=== PATIENT | male | born 1960 | race Caucasian/White ===

== ENCOUNTER 2018-08-28 11:13 | Outpatient (CLI) | payer MEDICARE, MEDICAID, SELFPAY ==
--- NOTE | 2018-08-28 09:17 | DI.RAD_ITS ---
SYMPTOM/DIAGNOSIS: COUGH, R05 PA AND LATERAL CHEST: 08/28/18 The heart is normal in size. The lungs are clear. The mediastinal structures and pleura appear intact. CONCLUSION: Normal chest.
== END 2018-08-28 11:33 ==
PROVIDERS: PCP Family Medicine; Visit Provider Nurse Practitioner
DX: R05 Cough (principal)
CPT/HCPCS: 71046

== ENCOUNTER 2020-12-21 07:44 | Emergency (ER) | payer MEDICARE, MEDICAID, SELFPAY ==
[2020-12-21 07:54] VITALS: BP 131/78; PULSE 75; TEMP 36.5; O2SAT 96
--- OUTSIDE RECORDS SUMMARY | 2020-12-21 07:56 | XMS_ITS ---
:1960 Author Care Team Providers Name Role Phone MANNY MONTE MD Animal Nursery Worker [phone] CINTIA GODOY MD General Surgeon [phone] Allergies Code Code Name Reaction Severity Status Onset System 435 RxNorm Albuterol Tachycardia ? Active ? Cat Dander ? ? Active ? 604253 RxNorm Ceftin ? ? Active ? 6921925 RxNorm Dog Dander ? ? Active ? 6425088 RxNorm Egg ? ? Active ? Flonase ? ? Active ? Grass Pollen ? ? Active ? 515465 RxNorm House Dust ? ? Active ? Influenza Virus ? ? Active ? Vaccine, Specific 0803985 RxNorm Lavender ? ? Active ? (Lavandula Angustifolia) 287681 RxNorm Levaquin ? ? Active ? 6470 RxNorm Lorazepam Itching Mild Active ? 91486 RxNorm Montelukast ? ? Active ? 7646 RxNorm Omeprazole ? ? Active ? Penicillins ? ? Active ? 8640 RxNorm Prednisone ? ? Active ? Ragweed Pollen ? ? Active ? Sulfa ? ? Active ? (Sulfonamide Antibiotics) 62049 RxNorm Tamsulosin ? ? Active ? 969020 RxNorm Singulair ? ? Deactivated ? Medications Name Status Start Date Stop Date ? ? albuterol sulfate HFA 90 mcg/actuation Completed ? 04/17/2020 aerosol inhaler Beaver Saline nasal gel Active ? Not availab le as directed azelastine 205.5 mcg (0.15 %) nasal spray Completed ? 07/10/2020 [place] 1 spray twice a day by intranasal route for 30 days. azithromycin 250 mg tablet Completed ? 04/17 Ceftin Active ? Not available cetirizine 10 mg tablet Active ? Not avai lable Take 1 tablet every day by oral route for 30 days. ciprofloxacin 500 mg tablet Completed ? 03/29 Claritin 10 mg tablet Completed ? 04/17/2020 Take 1 tablet every day by oral route. doxycycline monohydrate 100 mg capsule Completed ? 08/02/2020 Take 1 capsule twice a day by oral route for 7 days. flunisolide 25 mcg (0.025 %) nasal spray Completed ? 07/10/2020 [place] 2 sprays twice a day by intranasal route for 30 days. fluticasone propionate 50 mcg/actuation Completed ? 05/10/2020 nasal spray,suspension guaifenesin Active ? Not available hydroxyzine HCl 25 mg tablet Active ? Not available Take 1 tablet 3 times a day by oral route as needed for 10 days . for anxiety or itching ibuprofen 800 mg tablet Active ? Not avai lable Take 1 tablet 3 times a day by oral route for 30 days. lorazepam 0.5 mg tablet Completed ? 08/31/19 21 1 - 2 tabs PO TID PRN anxiety or insomnia mometasone 50 mcg/actuation nasal spray Unknown ? Not available 2 sprays each nostril daily montelukast 10 mg tablet Completed ? 020 prednisone 20 mg tablet Completed ? 05/01/20 20 prednisone 5 mg tablet Completed ? 0 Take 1 tablet every day by oral route for 5 days. Xopenex HFA 45 mcg/actuation aerosol inhaler Completed ? 08/31/2020 2 puffs q4-6h PRN cough or SOB Notes: Cranactin OTC, 1-2 po archie ly, cranberry based Problems Name Status Onset Date Source ? Disorder of Bladder Active 04/17/2020 ? 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 Allergic Rhinitis Active 05/05/2020 ? Solitary Nodule of Lung Unknown 06/01/2020 ? Hamstring Injury Unknown 06/01/2020 ? Erectile Dysfunction Active 06/02/2020 ? Sinus Bradycardia Unknown 06/02/2020 ? Deviated Nasal Septum Active 06/02/2020 ? Dental Abscess Unknown 06/02/2020 ? Urethral Stricture Unknown 06/02/2020 ? Blood in Urine Unknown 06/02/2020 ? Vertigo Unknown 06/02/2020 ? Dizziness Unknown 06/02/2020 ? Chronic Hoarseness Active 06/02/2020 ? Retention of Urine Unknown 06/02/2020 ? Inguinal Pain Unknown 06/02/2020 ? Fracture of Distal End of Radius Unknown 06/02/2020 ? Dog Bite Unknown 06/02/2020 ? Pain of Left Hip Joint Unknown 06/02/2020 ? Weakness of Right Leg Unknown 06/02/2020 ? Cyst Unknown 06/02/2020 ? Generalized Rash Unknown 06/02/2020 ? Chronic Sphenoidal Sinusitis Active 09/14/2020 ? Procedures Date Name Performed by ? 07/10/2020 EGD/Endoscopy Information not avai lable ? Urethroplasty for Stricture Information not available Notes: 2013 ? Cystoscopy Information not avai lable 04/17/2020 US, Head + Neck, Soft Tissue [facility] (Internal) [address] [place] [address] (Work Place) 08/28/2020 XR, Chest, 2 View [facility] (Internal) [address] [place] [address] (Work Place) 05/30/2020 XR, Esophagram [facility] (Internal) [address] [place] [address] (Work Place) Notes: hospitalizations: child & in 30s for GI issues Results Lab Results Date Name Specimen Result Interpretation Description Value Range Status Address ? 09/10/2020 EKG Done by ? No observation ? ? ? [place] ED recorded. [facility] (Internal) : [address] 09/10/2020 SARS CoV 2 SWAB ? Covid-19 [facility] negative negat colten Final [place] RNA Result [facility] (COVID-19)[facility] Lab QL, (Internal) : managed care nurse-PCR, [address] Jerry Kinney Specimen ? ? SWAB ? Performing Lab ana ? Final N orth [address] [facility] lab (Internal) : [address] 09/09/2020 CBC W/ Auto BLD ? Wbc 9.7 5.0-10.0 Final [place] Diff 10*3/uL 10*3/uL [facility] (Internal) : [address] ? ? BLD ? Rbc 5.14 4.60-6.0 Final [place] 10*6/uL 0 [facility] 10*6/uL [facility] Lab (Internal) : [address] ? ? BLD ? Hgb 16.1 14.0-18. Final [place] g/dL 0 g/dL [facility] (Internal) : [address] ? ? BLD ? Hct 46.7 % 41.0-51. Final [facility] 0 % [facility] : [address] ? ? BLD ? Mcv 90.9 fL 80.0-96. Final [facility] 0 fL [facility] (Internal[facility] : [address] [place] ? ? BLD ? Mch 31.3 pg 26.0-32. Final [facility] 0 pg [facility] (Internal) : [address] [place] ? ? BLD ? Mchc 34.5 31.0-35. Final [facility] g/dL 0 g/dL [facility] ([facility] : [address] [place] ? ? BLD ? Rdw 12.3 % 11.5-14. Final [facility] 5 % [facility] (Internal[facility] : [address] [place] ? ? BLD ? Plt 299 130-450 Final [facility] 10*3/uL 10*3/uL [facility] (Internal[facility] : [address] [place] ? ? BLD ? Anc 7.75 ? Final [facility] 10*3/uL [facility] (Internal) : [address] ? ? BLD High Nlr 6.25 0.00-3.2 Final [facility] 0 [facility] ([facility] : [address] ? ? BLD High Neutro 79.7 % 40.0-75. Final [facility] 0 % [facility] ([facility] : [address] [place] ? ? BLD Low Lymph 12.7 % 20.0-50. Final [facility] 0 % [facility] ([facility] : [address] [place] ? ? BLD ? Hays 6.5 % 2.0-10.0 Final [facility] (Internal[facility] : [address] [place] ? ? BLD Low Eos 0.3 % 1.0-6.0 Final [facility] (Internal[facility] : [address] [place] ? ? BLD ? Baso 0.6 % 0.0-1.0 Final [facility] % [facility] (Internal) : [address] [place] ? ? BLD ? Ig 0.2 % 0.0-0.9 Final [facility] ([facility] : [address] 09/09/2020 BMP, Serum S High g/r 107 74-106 Final No rth or Plasma mg/dL mg/dL [facility] ([facility] : [address] t ? ? S ? Bun 16 mg/dL 9-20 Final [facility] mg/dL [facility] ([facility] : [address] t ? ? S Low Crea 0.60 0.66-1.2 Final [facility] mg/dL 5 mg/dL [facility] ([facility] : [address] t ? ? S ? Ca 9.1 8.4-10.2 Final [facility] mg/dL mg/dL [facility] ([facility] : [address] t ? ? S ? Na 142 137-145 Final [facility] mmol/L mmol/L [facility] ([facility] : [address] t ? ? S ? K 4.0 3.5-5.1 Final [facility] mmol/L mmol/L [facility] ([facility]) : [address] t ? ? S ? Cl 105 98-107 Final [facility] mmol/L mmol/L [facility] ([facility]) : [address] t ? ? S ? Tco2 25.0 22.0-30. Final [facility] mmol/L 0 mmol/L [facility] ([facility] : [address] 09/09/2020 Troponin I, S ? Trop <0.06 0.00-0.0 Final [place] Serum or NG/mL 6 NG/mL [facility] L [facility] (Internal) : [address] 08/24/2020 Tick-borne S ? Ehrlichia <1:64 <1:64 Final [place] Disease Chaffeensis titer titer Coun try Panel (Hme) Ab, IgG Hos pital Lab (Internal) : [address] t ? ? S ? Anaplasma <1:64 <1:64 Final [place] Phagocytophilum titer titer C ountry Ab, IgG,S Hospita l Lab (Internal) : [address] t ? ? S ? Babesia Microti <1:64 <1:64 Final [place] IgG Ab, S titer titer [facility] ([facility] : [address] ? ? S ? Lyme Disease negative negative Final [place] Serology, S Count ry Hospital L ab (Internal) : [address] 08/24/2020 Borrelia S ? Lyme Antibody negative negative Final [place] Burgdorferi Count ry Ab, Qual Hospital Lab Immunoassay (Inte rnal): , Serum [address] 08/24/2020 Tb (M ? quantiferon-TB negative negative Final [place] Tuberculosi Gold plus Result Country s), Hospital L ab Ifn-gamma (Salesperson [employer] al): Cathy, [address] t ? ? ? TB1 Ag minus 0.00 ? Final Nor th Nil Result IU/mL Countr y Hospital L ab (Internal) : [address] ? ? ? TB2 Ag minus 0.00 ? Final Nor th Nil Result IU/mL Count[facility] Hospital L [facility] (Internal) : [address] ? ? ? Mitogen minus >10.00 ? Final No rth Nil Result IU/mL Countr [facility] Hospital L [facility] (Internal) : [address] ? ? ? Nil Result 0.02 ? Final [place] IU/mL [facility] (Internal) : [address] t 07/11/2020 Culture, THRT ? Final microbio ? Final No rth Aerobic, logy [facility] Throat results Hospital Lab (Internal) : [address] Le[address]da mejia 06/01/2020 HbA1C BLD ? Ha1C 5.4 % 4.0-6.0 Final [place] (Hemoglobin % Count ry a1C), Blood Hospi dorie Lab (Internal) : [address] Ley[address] t 06/01/2020 PSA, Serum S ? PSA Scrn 1.5 0.0-4.0 Final [place] or Plasma NG/mL NG/mL [facility] (Internal) : [address] Ley[address] t 06/01/2020 Thyroid S ? Tsh 2.33 0.47-4.6 Final Nor th [place], u[IU]/mL 8 Countr y Serum u[IU]/mL Hospital Lab (Internal) : [address] t 06/01/2020 Lipid S ? Chol 133 50-200 Final [place] Panel, mg/dL mg/dL [facility] Serum Hospital L ab (Internal) : [address] ? ? S ? Trig 76 mg/dL 10-150 Final [place] mg/dL [facility] (Internal) : [address] ? ? S High Hdl 104 40-60 Final [place] mg/dL mg/dL [facility] (Internal) : [address] t ? ? S ? Ldl 14 mg/dL 0-130 Final [place] mg/dL [facility] (Internal) : [address] 05/23/2020 Borrelia S ? Lyme Antibody (added) negative Correcte [place] Burgdorferi negative d Cou ntry Ab, [facility] Lab Immunoassay (Inte rnal): , Serum [address] 04/27/2020 SARS CoV 2 SWAB ? Covid-19 Result negative nega tive Final [place] RNA Country (COVID-19), Hospi dorie Lab QL, (Internal) : managed care nurse-PCR, [address] , [place] Specimen ? ? SWAB ? Performing Lab the ? Final N orth broad [facility] Lab e (Internal) : [address] 04/20/2020 CBC W/ Auto BLD ? Wbc 7.7 5.0-10.0 Final [place] Diff 10*3/uL 10*3/uL [facility] (Internal) : [address] ? ? BLD ? Rbc 5.20 4.60-6.0 Final [place] 10*6/uL 0 Country 10*6/uL Hospital Lab (Internal) : [address] ? ? BLD ? Hgb 16.3 14.0-18. Final [facility] g/dL 0 g/dL [facility] (Internal) : [address] t ? ? BLD ? Hct 47.4 % 41.0-51. Final [place] 0 % [facility] (Internal) : [address] t ? ? BLD ? Mcv 91.2 fL 80.0-96. Final [facility] 0 fL [facility] (Internal) : [address] t ? ? BLD ? Mch 31.3 pg 26.0-32. Final [facility] 0 pg [facility] (Internal) : [address] [place] ? ? BLD ? Mchc 34.4 31.0-35. Final [facility] g/dL 0 g/dL [facility] (Internal) : [address] [place] ? ? BLD ? Rdw 12.8 % 11.5-14. Final [facility] 5 % [facility] (Internal) : [address] [place] ? ? BLD ? Plt 274 130-450 Final [facility] 10*3/uL 10*3/uL [facility] (Internal) : [address] [place] ? ? BLD ? Anc 5.04 ? Final [facility] 10*3/uL [facility] (Internal) : [address] [place] ? ? BLD ? Nlr 2.82 0.00-3.2 Final [facility] 0 [facility] (Internal) : [address], [place] ? ? BLD ? Neutro 65.7 % 40.0-75. Final [facility] 0 % [facility] (Internal) : [address] [place] ? ? BLD ? Lymph 23.4 % 20.0-50. Final [facility] 0 % [facility] (Internal[facility] : [address] [place] ? ? BLD ? Hays 7.2 % 2.0-10.0 Final [facility] (Internal) : [address] [place] ? ? BLD ? Eos 2.5 % 1.0-6.0 Final [facility] ([facility] : [address] [place] ? ? BLD ? Baso 0.9 % 0.0-1.0 Final [facility] (Internal[facility] : [address] [place] ? ? BLD ? Ig 0.3 % 0.0-0.9 Final [facility] % [facility] ([facility]) : [address] 04/20/2020 CMP, Serum S ? g/r 92 mg/dL 74-106 Final [facility] or Plasma mg/dL [facility] ([facility]) : [address] ? ? S ? Bun 14 mg/dL 9-20 Final [facility] mg/dL [facility] ([facility] : [address] t ? ? S Low Crea 0.60 0.66-1.2 Final [facility] mg/dL 5 mg/dL [facility] ([facility]) : [address] t ? ? S ? Ca 9.1 8.4-10.2 Final [facility] mg/dL mg/dL [facility] ([facility]) : [address] t ? ? S ? Na 139 137-145 Final [facility] mmol/L mmol/L [facility] (Internal) : [address] t ? ? S ? K 4.6 3.5-5.1 Final [facility] mmol/L mmol/L [facility] ([facility] : [address] t ? ? S ? Cl 104 98-107 Final [facility] mmol/L mmol/L [facility] ([facility]) : [address] t ? ? S ? Tco2 28.0 22.0-30. Final [place] mmol/L 0 mmol/L [facility] ([facility]) : [address] t ? ? S ? Tp 6.8 g/dL 6.3-8.2 Final [facility] g/dL [facility] ([facility] : [address] t ? ? S ? Alb 4.3 g/dL 3.5-5.0 Final [facility] g/dL [facility] ([facility] : [address] t ? ? S High Tbil 1.7 0.2-1.3 Final [facility] mg/dL mg/dL [facility] ([facility] : [address] t ? ? S ? Alp 53 U/L 50-136 Final [facility] U/L [facility] ([facility]) : [address] t ? ? S Low Alt (Sgpt) 17 U/L 21-72 Final [facility] U/L [facility] ([facility] : [address] t ? ? S ? Ast (Sgot) 34 U/L 17-59 Final [facility] U/L [facility] ([facility]) : [address] t 04/20/2020 CRP, High S ? Rcrp <0.10 0.10-0.3 Final N orth Sensitivity mg/dL 0 mg/dL Coun try , Serum or Hospit al Lab Plasma (Internal) : [address] 04/20/2020 EKG Done by ? No observation ? ? ? [facility] ED recorded. [facility] ab (Internal) : [address] ? Venipunctur ? Location Right ? ? P_ nc Primary e Antecubi Care dorie [place]: [address], [place] ? ? ? Needle 21g ? ? P_nc Prim maren Vacutain Care er [place]: [address], [place] ? ? ? Number of 1 ? ? P_nc P rimary Attempts Care [place]: [address], [place] ? ? ? Successful Yes ? ? P_nc Primary Care [place]: [address], [place] ? ? ? Dressing Pressure ? ? P_nc Primary Band-aid Care Applied [place]: [address], [place] ? ? ? Initials hj ? ? P_nc Pr imary Care [place]: [address], [place] ? Rapid Strep ? Strep negative ? ? P_n c Primary Group a, Care Throat [place]: [address], [place] ? Venipunctur ? Location Right ? ? P_ nc Primary e Antecubi Care dorie [place]: [address], [place] ? ? ? Needle 21g ? ? P_nc Prim maren Vacutain Care er [place]: [address], [place] ? ? ? Number of 1 ? ? P_nc P rimary Attempts Care [place]: [address], [place] ? ? ? Successful Yes ? ? P_nc Primary Care [place]: [address], [place] ? ? ? Dressing Pressure ? ? P_nc Primary Band-aid Care Applied [place]: [address], [place] ? ? ? Initials nt ? ? P_nc Pr imary Care [place]: [address], [place] Past Encounters 09/21/2020 Varicose Veins of Lower Extremity; Chron ic Sphenoidal Sinusitis; Muscle Weakness Lashaun Parker Adriane [employer]ADE MAKER: [address], [place] [address], Ph. 09/11/2020 Productive Cough Lashaun Forrest [employer]: [address], [place] [address], Ph. 09/07/2020 Chronic Hoarseness; Normal Grief Reactio n Lashaun Espinozarahel Forrest [employer]: [address], [place] [address], Ph. 08/31/2020 Chronic Hoarseness Lashaun Keithrahel Forrest [employer]ADE MAKER: [address], [place] [address], Ph. 08/24/2020 Chronic Hoarseness; Dyspnea; Dry Skin GRACY ArechigaP: [address], [place] [address], Ph. 08/16/2020 Chronic Hoarseness Lashaun Marinetterahel Forrest [employer]ADE MAKER: [address], [place] [address], Ph. 08/02/2020 Allergic Rhinitis; Active or Passive Imm unization Lashaunsea EspinozaGRACY SchumacherP: [address], [place] [address], Ph. 07/19/2020 Tick Bite; Dysequilibrium Syndrome; Prur itus of Skin; Acute Ethmoidal Sinusitis GRACY ArechigaP: [address], [place] [address], Ph. 07/12/2020 Abnormal Sputum GRACY ArechigaP: [address], [place] [address], Ph. 07/10/2020 Chronic Hoarseness; Screening for Malign ant Neoplasm of Colon GRACY ArechigaP: [address], [place] [address], Ph. 06/26/2020 Blnaca Foster, [employer]BI[employer] HOME MECH[employer]IC: [address] [facility], [address], [place] [address], Ph. 06/01/2020 Allergic Rhinitis; Reactive Airway Disea se; Screening for Cardiovascular System Disease; Screening for Malignant Neoplasm of Prostate GRACY ArechigaP: [address] [place] [address], Ph. 05/25/2020 Blanca Foster, MOBILE HOME MECHANIC: [address] [facility] [address], [place] [address], Ph. 05/04/2020 Manny Monte MD: [address] [place] [address], Ph. 04/27/2020 Manny Monte MD: [address] [place] [address], Ph. 04/26/2020 Reactive Airway Disease; Allergic Rhinit is; Solitary Nodule of Lung Lashaun Forrest, SHADE MAKER: [address] [place] [address], Ph. 04/17/2020 Allergic Rhinitis; Mass of Neck; Adminis tration of Influenza Vaccine GRACY ArechigaP: [address] [place] [address], Ph. Social History Tobacco Smoking Status Former Smoker Notes: quit Vaccine List Vaccine Type Tdap 01/20/2020 Plan of Care Reminders Provider Appointments None ? ? recorded. Lab None ? ? recorded. Referral None ? ? recorded. Procedures None ? ? recorded. Surgeries None ? ? recorded. Imaging None ? ? recorded. Vitals 09/21/2020 03:40PM Acute 20 Height Weight BMI Blood Pressure 167.64 cm 62.17 kg 22.1 kg/m2 108/72 mm[Hg] 09/11/2020 11:00AM Follow Up 20 Height Weight BMI Blood Pressure 167.64 cm 64.15 kg 22.8 kg/m2 138/88 mm[Hg] 09/07/2020 03:40PM Acute 40 Height Weight BMI Blood Pressure 167.64 cm 65.77 kg 23.4 kg/m2 132/80 mm[Hg] 08/31/2020 03:20PM Follow Up 40 Height Weight BMI Blood Pressure 167.64 cm 66.79 kg 23.8 kg/m2 118/66 mm[Hg] 08/24/2020 11:00AM Acute 40 Height Weight BMI Blood Pressure 167.64 cm 68.04 kg 24.2 kg/m2 116/70 mm[Hg] 08/02/2020 03:40PM Follow Up 40 Height Weight BMI Blood Pressure 167.64 cm 67.13 kg 23.9 kg/m2 110/66 mm[Hg] 07/19/2020 03:40PM Follow Up 20 Height Weight BMI Blood Pressure 167.64 cm 66.68 kg 23.7 kg/m2 122/88 mm[Hg] 07/12/2020 03:20PM Follow Up 40 Height Weight BMI Blood Pressure 167.64 cm 64.86 kg 23.1 kg/m2 134/84 mm[Hg] 07/10/2020 03:20PM Acute 40 Height Weight BMI Blood Pressure 167.64 cm 63.5 kg 22.6 kg/m2 106/80 mm[Hg] 06/01/2020 01:20PM Follow Up 40 Height Weight BMI Blood Pressure 167.64 cm 67.7 kg 24.1 kg/m2 118/62 mm[Hg] 04/26/2020 10:40AM Follow Up 20 Height Weight BMI Blood Pressure 167.64 cm 63.5 kg 22.6 kg/m2 116/76 mm[Hg] 04/17/2020 11:00AM Acute 40 Height Weight BMI Blood Pressure 167.64 cm 63.05 kg 22.4 kg/m2 124/78 mm[Hg]
[2020-12-21 08:11] VITALS: RESP 18
--- NOTE | 2020-12-21 08:30 | RT.EKG_ITS ---
APPROVED REPORT Exam: Resting ECG Reason for Exam: chest tightness Patient Location: E HR:55 bpm ECG Measurements Heart Rate 55 AXIS MD 166 P 46 QRSd 91 QRS 66 QT 408 T 34 QTc 392 Conclusion Sinus bradycardia...rate< 60. No STEMI. I have reviewed and interpreted ECG and agree with software generated interpretation.
--- NOTE | 2020-12-21 08:32 | ED.GENADUL_ITS ---
Discharge Plan Disposition Patient Disposition: HOME Condition: Stable Discharge Details Clinical Impression: Throat pain in adult, Dyspnea, Multiple complaints Primary Care Provider: Daniel Bryant ED Provider: Kate Espino Home Meds and New Rx's Prescriptions: No Action cetirizine 10 mg tablet 10 mg PO BID RF: 0 doxycycline monohydrate 100 mg capsule 100 mg PO BID RF: 0 levalbuterol tartrate 45 mcg/actuation HFA aerosol inhaler 2 inh INHALATION BID PRNRF: 0 Discharge Instructions Instructions: Pharyngitis (ED), Dyspnea (ED) Additional Instructions: Please only take 1 antihistamine daily. Increase oral fluids. Follow up with primary care provider in 3-5 days. Return to ED sooner if any worsening or concerns. Keep your scheduled appointment for surgery. Discussed with your primary care provider regarding the barium swallow that you requested. Today you had lab work done, EKG, chest x-ray which all are within normal limits. Referrals: Andreina Root [ [facility] STAFF PHYSICIAN] - 1 week Medical Decision Making 60 year old male presents to the ED who reports multiple complaints, throat discomfort, left sided headache, chest tightness, and problems breathing for a number of weeks. Denies any fever, chills, current abdominal pain, throat gurgling, with yellowish green phlegm. 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 He denies any nausea vomiting. He does report loose stools no diarrhea. Patient appears anxious and has multiple visits and multiple telephone calls to [facility] team. It appears that he presents with multiple complaints. He does report he has some scar tissue in his bladder and he does self cath. He is speaking in full sentences does not appear in any respiratory distress, he is nontachycardic O2 sat 96% on room air, within normal limits. 04 22: Patient was swabbed for strep throat, he is now requesting a barium swallow x-ray test. At this time I see no indication for that he is not having any problems swallowing, speaking in full sentences handling his secretions well. Work-up ordered including serial troponins, EKG and chest x-ray. Patient had a CT chest without contrast at [facility] December 13. It does appear that these are chronic complaints. EXAM:? XR CHEST 2V PA ? LATERAL CLINICAL HISTORY: ? Dyspnea. ? TECHNIQUE:? 2D digital imaging was performed. COMPARISON:? CR XR CHEST 2V PA ? LATERAL from 08/28/2018 FINDINGS: Heart size is normal.? The mediastinum is not widened. Lungs are clear.? No infiltrates nor pleural effusions. IMPRESSION: No acute pulmonary findings.No significant change from 08/28/2018. CBC shows no evidence of infection or leukocytosis, MCHC 36.4, absolute lymphocytes 1.11, CMP is largely within normal limits, BUN is 20 creatinine 0.8 GFR greater than 60, calcium is 8.4 which is marginally low similar to 2017, magnesium 2.2, total bilirubin 2.5, AST ALT alk phos all within normal limits initial troponin less than 0.05. Patient is still requesting a barium swallow. Discussion at length with patient regarding lab results, x-ray result and no need for barium swallow at this time due to speaking in full sentences, handling secretions well no trouble swallowing. I was able to personally witness patient drinking water in the room without difficulty. I did offer dexamethasone which patient agreed to take. Patient discharged with instructions to follow-up with [facility] PCP as previously scheduled. Discussed return instructions, verbalized understanding. Patient was ambulatory without difficulty prior to discharge hemodynamically stable. I also did instruct him to decrease on his antihistamines as this may be causing the catecholamine response and making his throat dry. Patient denies any current chest tightness chest pain. HPI General Mode of arrival: ambulatory . Date/Time Provider Initiated Documentation: 12/21/20 08:11 . Limitations to Documentation: no limitations . Information obtained by: patient, RN notes reviewed and old records reviewed . HPI Narrative: 60 year old male presents to the ED who reports throat discomfort, left sided headache, chest tightness, and problems breathing for a number of weeks. Denies any fever, chills, current abdominal pain, throat gurgling, with yellowish green phlegm. 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 He denies any nausea vomiting. He does report loose stools no diarrhea. Patient appears anxious and has multiple visits and multiple telephone calls to [facility] team. It appears that he presents with multiple complaints. He does report he has some scar tissue in his bladder and he does self cath. He is speaking in full sentences does not appear in any respiratory distress, he is nontachycardic O2 sat 96% on room air, within normal limits. Related Data Home Medications Medication Instructions Recorded Confirmed cetirizine 10 mg PO BID 12/21/20 12/21/20 doxycycline monohydrate 100 mg PO BID 12/21/20 12/21/20 levalbuterol tartrate 2 inh INHALATION BID PRN 12/21/20 12/21/20 Allergies Allergy/AdvReac Type Severity Reaction Status Date / Time sulfamethoxazole Allergy Skin Rash Unverified 08/04/16 16:33 [From Bactrim] trimethoprim [From Bactrim] Allergy Skin Rash Unverified 08/04/16 16:33 Sulfa (Sulfonamide AdvReac Unverified 08/04/16 16:32 Antibiotics) General Stated Complaint: GenMedical ARIANA: 3 Review of Systems Constitutional Constitutional: Reports as per HPI, Reports headache(s) and Denies snoring ENT Ears, Nose, Mouth, and Throat: Reports dry mouth, Reports otalgia, Reports headache(s), Reports odynophagia, Reports post nasal drip, Reports sinus pain and Reports sinus pressure Cardiovascular Cardiovascular: Reports system reviewed and no additional complaints, except as documented, Denies acrocyanosis, Reports chest pain (Chest tightness), Denies diaphoresis, Denies syncope, Denies rapid heart rate, Denies edema, Denies leg edema, Denies lightheadedness and Reports paroxysmal nocturnal dyspnea (Anxiety) Respiratory Respiratory: Reports as per HPI, Reports change in phlegm color, Denies cough, Denies hemoptysis, Reports excessive phlegm production, Reports dyspnea (Dyspnea), Denies snoring, Denies stridor and Denies wheezing Gastrointestinal Gastrointestinal: Denies abdominal pain, Denies bloating, Denies hematochezia, Reports loose stools and Reports odynophagia Genitourinary Genitourinary: Denies difficulty urinating, Denies dysuria and Reports other (Self caths) Musculoskeletal Musculoskeletal: Denies abnormal gait Neurologic Neurologic: Denies abnormal movements, Denies abnormal speech, Denies abnormal gait, Denies syncope, Reports headache(s), Denies lack of coordination and Denies localized weakness Psychiatric Psychiatric: Reports anxiety Allergic/Immunologic Allergic/Immunologic: Denies wheezing PFSH Social History Smoking/Tobacco Use Status: Never Smoking risk assessment performed?: Yes Alcohol Intake: current Alcohol Intake frequency: a few times a month Alcohol type: beer Drug use: Socially Substance use type: marijuana Do you feel safe at home: Yes Do you feel safe in your relationship?: Yes Exam Narrative Exam Narrative: Constitutional: Alert and oriented x3. Appears stated age. Normal body habitus. Head: Normocephalic, no trauma. Eyes: Pupils PERRLA, Red reflex noted, EOM's intact. Eyelids symmetrical without lesions, discharge, or swelling. ENT: Bilateral TM's WNL, External ear normal to inspection, no mastoid TTP, swelling, or erythema, Nasal turbinates erythemic and boggy, no nasal discharge. Normal dentition, Posterior pharynx erythemic, no exudate. Chest: RRR, Normal S1, S2, distal pulses intact. Resp: Lungs clear to auscultation bilaterally, no wheezes, rales, or rhonchi. Slightly diminished all booth. No stridor auscultated. Positive anterior cervical tenderness with palpation. No palpable lymph nodes. Musculoskeletal: Normal gait, 5/5 strength to all four extremities. Skin: No suspicious rashes or lesions. Capillary refill less than 2 sec. Neurologic: Cranial nerves II-XII intact. Alert and oriented x 3. DTR's intact. Hematologic/Lymphatic: No ecchymosis, no lymphadenopathy. Course Vital Signs Vital signs: Vital Signs Temperature 36.5 C 12/21/20 07:54 Pulse 75 12/21/20 07:54 Blood Pressure 131/78 12/21/20 07:54 Pulse Oximetry 96 12/21/20 07:54 Temperature 36.5 C 12/21/20 07:54 Temperature Source Temporal Artery Scan 12/21/20 07:54 Pulse 75 12/21/20 07:54 Respiratory Rate 18 12/21/20 08:11 Respiratory Effort Non-Labored 12/21/20 08:11 Respiratory Depth Normal 12/21/20 08:11 Respiratory Pattern Normal 12/21/20 08:11 Blood Pressure 131/78 12/21/20 07:54 Blood Pressure Position Sitting 12/21/20 07:54 Pulse Oximetry 96 12/21/20 07:54 Oxygen Delivery Method Room Air 12/21/20 07:54 Oxygen Flow Rate 0 12/21/20 07:54 Pain Level 7 12/21/20 07:54
[2020-12-21 09:14] LABS: Abs Immature Grans 0.02 10^3/uL (0.0-0.06); Absolute Basophil Count 0.06 10^3/uL (0.0-0.2); Absolute Eosinophil Count 0.07 10^3/uL (0.0-0.7); Absolute Lymphocyte Count 1.11 10^3/uL (1.2-3.4); Absolute Monocyte Count 0.46 10^3/uL (0.1-0.8); Absolute Neutrophil Count 4.53 10^3/uL (1.2-6.7); Eosinophils % 1.1; HCT 45.1 % (40.0-50.0); HGB 16.4 g/dL (13.5-17.5); Immature Grans % 0.3; Lymphocytes % 17.8; MCH 32.1 pg (27.0-33.0); MCHC 36.4 % (32.0-36.0); MCV 88.3 fL (80-95); MPV 9.1 fL (8.0-11.0); Monocytes % 7.4; Neutrophils % 72.4; Nucleated RBC 0 %; Platelet Count 259 10^3/uL (130-400); RBC 5.11 10^6/uL (4.36-5.78); RDW 12.3 % (11.8-14.1); RDW-SD 40.1 fL; WBC 6.25 10^3/uL (4.4-10.8)
--- NOTE | 2020-12-21 09:15 | DI.RAD_ITS ---
Exam(s) XR CHEST 2V PA LATERAL EXAM: XR CHEST 2V PA LATERAL CLINICAL HISTORY: Dyspnea. TECHNIQUE: 2D digital imaging was performed. COMPARISON: CR XR CHEST 2V PA LATERAL from 08/28/2018 FINDINGS: Heart size is normal. The mediastinum is not widened. Lungs are clear. No infiltrates nor pleural effusions. IMPRESSION: No acute pulmonary findings.No significant change from 08/28/2018. DATA REPOSITORY: RADIATION DOSE DELIVERED:
[2020-12-21 09:43] LABS: ALT 29 U/L (16-63); AST 25 U/L (15-37); Alkaline Phosphatase 55 U/L (46-116); Anion Gap 8.8 mmol/L (3-11); BUN 20 mg/dL (7-18); Bilirubin, Total 2.5 mg/dL (0.2-1.0); CO2 26.2 mmol/L (21.0-32.0); CREATININE 0.8 mg/dL (0.70-1.30); Calcium 8.4 mg/dL (8.5-10.1); Chloride 107 mmol/L (98-107); Glucose 104 mg/dL (74-106); Magnesium 2.2 mg/dL (1.8-2.4); Potassium 3.7 mmol/L (3.5-5.1); Sodium 142 mmol/L (136-145); Total Protein 6.8 g/dL (6.4-8.2); Troponin I < 0.05 ng/mL (<0.06)
[2020-12-21 10:48] VITALS: BP 130/84; PULSE 66; TEMP 36.6; O2SAT 97
[2020-12-21] MEDS: Normal Saline Flush 10 ML SYR IVP (10:48)
[2020-12-21] MEDS: Dexamethasone 4 MG/ML VIAL PO (10:48)
== END 2020-12-21 11:04 | disposition home or self-care (01) ==
PROVIDERS: Emergency Provider Registered Nurse Emergency; PCP Family Medicine
DX: R06.00 Dyspnea, unspecified (principal); R07.0 Pain in throat; R51.9 Headache, unspecified
CPT/HCPCS: 36415; 80053; 87880; 93005; 99284; 71046; 83735; 84484; 85025; 87081; 93010; 99283; J1100

== ENCOUNTER 2021-02-16 04:49 | Outpatient (CLI) | payer MEDICARE, MEDICAID, SELFPAY ==
--- NOTE | 2021-02-16 09:25 | DI.RAD_ITS ---
Exam(s) RF BARIUM SWALLOW SINGLE EXAM: RF BARIUM SWALLOW SINGLE CLINICAL HISTORY: CHRONIC THROAT CLEARING,R68.89,DYSPHAGIA,R13.10,H/O SINUS SURGERY TECHNIQUE: 2D and realtime digital imaging was performed. CONTRAST MATERIAL: Thick and thin barium and barium tablet were administered. COMPARISON: RF XR BARIUM SWALLOW AC (D) from 06/12/2020 RF XR BARIUM SWALLOW AC (D) from 06/12/2020 FINDINGS: The boiler riveter view of the chest shows normal heart size and clear lung booth. The lateral boiler riveter view of the neck is unremarkable. Esophagus: The patient swallowed barium without difficulty. Noevidence for mucosal erosions. Nofold thickening. No mass is visible. Nostricture. No diverticulum. No significant pooling in the vallec uyen or piriform sinuses. No aspiration. Motility: There is a normal primary stripping wave. Mild tertiary contractions were noted in the dist al 3rd of the esophagus.. There is no hiatal hernia. Nogastroesophageal reflux was observed during the exam. IMPRESSION: Mild esophageal dysmotility. Fluoro time 63 seconds RADIATION DOSE DELIVERED: candi Jones=20.9 mGy
[2021-02-16] MEDS: Barium Sulfate 60% W/V 355 ML BTL 200 ML PO (10:03)
[2021-02-16] MEDS: Barium Sulfate 700 MG TAB PO (10:06)
== END 2021-02-16 05:09 ==
PROVIDERS: PCP Internal Medicine; Visit Provider Otolaryngology Otolaryngology/Facial Plastic Surgery
DX: K22.4 Dyskinesia of esophagus (principal); R68.89 Other general symptoms and signs; Z98.890 Other specified postprocedural states
CPT/HCPCS: 74220; J3490

== ENCOUNTER 2021-02-16 09:46 | Outpatient (REF) | payer MEDICARE, MEDICAID, SELFPAY | END 2021-02-16 09:47 | disposition home or self-care (01) | LOC: LBN 09:46 | PROVIDERS: PCP Internal Medicine; Visit Provider Urology | DX: R39.9 Unspecified symptoms and signs involving the genitourinary system (principal) | CPT/HCPCS: 87077; 87086; 87186 ==

== ENCOUNTER 2021-03-18 07:56 | Emergency (ER) | payer MEDICARE, MEDICAID, SELFPAY ==
[2021-03-18 08:04] VITALS: BP 117/73; PULSE 76; RESP 16; TEMP 36.5; O2SAT 96
--- NOTE | 2021-03-18 08:17 | W.ED.GENAD ---
Discharge Plan Disposition Patient Disposition: HOME Condition: Stable Discharge Details Clinical Impression: Throat pain in adult, Multiple complaints Primary Care Provider: Yolanda Meyer ED Provider: Anju Anne Home Meds and New Rx's Prescriptions: Continued multivitamin Tablet 1 tab PO DAILY RF: 0 coenzyme Q10 [Co Q-10] 200 mg Capsule 200 PO DAILY RF: 0 B.breve-L.acid-L.rham-S.thermo 3 billion cell Tablet,Chewable 2 tab PO DAILY RF: 0 Cranactin DAILY RF: 0 Graefruit Seed Extract PO DAILY RF: 0 Discharge Instructions Instructions: Pharyngitis (ED) Additional Instructions: Your exam today is very reassuring. You are negative for strep throat. Your lungs are clear. However, as you feel you have a low-grade fever at home, you may have a viral infection. You have been tested for COVID-19. Please quarantine at home until you have results. We will call you with the results of symptoms that have returned. Please encourage water intake. You may use Tylenol and/or ibuprofen as needed for discomfort or fevers. In regard to your concern regarding your director of medical staff services, your pulmonology phone number is listed below. You may call tomorrow to schedule follow-up appointment. A referral has also been sent. In regard to your allergy testing, I encourage you to call back your research professor that you had previously seen as they have all the results of your testing and discuss further management as necessary. Please continue to establish your local primary care and follow-up as soon as possible discuss your chronic ailments. Referrals: Yolanda Meyer [Primary Care Provider] - Medical Decision Making Patient is a 60-year-old male presenting today with multiple complaints. Primary at this time seems to be an increase in his throat discomfort as well at low-grade fever. He reports that he had temperature of 99.1 ?F today. He states that the last time he had this was the last time he had a cold and was quite concerned. Patient was seen here back in November at which time he was endorsing sore throat. He states that his symptoms are quite similar but has continued to worsen. 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 Patient is concerned that this is not adequately treated. He is also concerned that he was seen by an research professor and was noted to have multitude of allergies he is not received appropriate treatment as of yet. Patient then found to have been very frustrated regarding much of his follow-up. He is very concerned that he has been labeled hypochondriac. He would like to be able to transition more of his care to this area, particularly pulmonology. On exam, patient appears nontoxic. Vital signs are all stable. HEENT exam is without significant abnormality at this time. Patient is able to swallow well, handling secretions. I do not feel any abnormalities in the anterior aspect of his throat. His lungs are clear. Heart sounds normal. Reassured the patient. I see no emergent pathology today, much of his concerns are a chronic nature. After that he may be suffering from viral illness. His rapid strep testing was negative. Will send out Covid testing. Patient has not been vaccinated that was to be vaccinated against COVID-19. Patient also very concerned about a number of chronic issues all of which have asked follow-up with his primary care about. I did encourage him to call back the research professor found that he may have lost touch with them. We will also give number for local director of medical staff services. It sounds that he is familiar with Dr. Stark and had seen her historically in [place] and is like to transition his care again to her. Return precautions were discussed. He will quarantine until COVID-19 testing is back. Encourage close follow-up with primary care. He will call tomorrow to schedule appointment. All of his questions and concerns were addressed and he is agreement with this plan. HPI General Mode of arrival: ambulatory. Date/Time Provider Initiated Documentation: 03/18/21 08:12. Limitations to Documentation: no limitations. Information obtained by: patient, RN notes reviewed and old records reviewed. History of Present Illness 60 year old M presents to the emergency department with the chief complaint of sore throat, fever, described as moderate, with intensity rated at 7. Quality is described as burning, and is localized to the mouth (sore throat). Patient reports no radiation. Patient started experiencing this month(s) and it has been constant. No relieving factors improve symptom(s), No exacerbating factors reported . Patient notes cough, fever/chills (T max 99.1) and shortness of breath (is not endorsing SOB curently, has had this as a chronic issue); denies chest pain, loss of appetite, nausea/vomiting and rash. Patient did receive the following treatments prior to arrival, none Related Data Home Medications Medication Instructions Recorded Confirmed B.breve-L.acid-L.rham-S.thermo 2 tab PO DAILY 03/18/21 03/18/21 Cranactin DAILY 03/18/21 Graefruit Seed Extract PO DAILY 03/18/21 coenzyme Q10 [Co Q-10] 200 PO DAILY 03/18/21 multivitamin 1 tab PO DAILY 03/18/21 03/18/21 Allergies Allergy/AdvReac Type Severity Reaction Status Date / Time fentanyl Allergy Unverified 03/18/21 08:10 sulfamethoxazole Allergy Skin Rash Verified 03/18/21 08:10 [From Bactrim] trimethoprim [From Bactrim] Allergy Skin Rash Verified 03/18/21 08:10 Sulfa (Sulfonamide AdvReac Verified 03/18/21 08:10 Antibiotics) General Stated Complaint: RespSymp ARIANA: 4 Review of Systems Constitutional Constitutional: Reports as per HPI, Denies chills, Reports fever(s) and Denies headache(s) Eyes Eyes: Reports as per HPI, Denies eye discharge and Denies irritation ENT Ears, Nose, Mouth, and Throat: Reports as per HPI and Denies headache(s) Cardiovascular Cardiovascular: Reports as per HPI, Denies chest pain and Reports dyspnea Respiratory Respiratory: Reports as per HPI and Reports dyspnea Gastrointestinal Gastrointestinal: Reports as per HPI, Denies abdominal pain, Denies change in bowel habits, Denies nausea and Denies vomiting Integumentary/Breasts Skin/Breast: Reports as per HPI and Denies rash Neurologic Neurologic: Reports as per HPI and Denies headache(s) [facility] Social History Smoking/Tobacco Use Status: Never Smoking risk assessment performed?: Yes Alcohol Intake: current Alcohol Intake frequency: a few times a month Alcohol type: beer Drug use: Socially Substance use type: marijuana Do you feel safe at home: Yes Do you feel safe in your relationship?: Yes Exam Const General: cooperative, healthy appearing, comfortable, no acute distress, well developed, well groomed and anxious Nutritional Appearance: average body habitus and well nourished Orientation: alert and awake [facility] Head: normal to inspection, normocephalic and atraumatic Ears: hearing grossly normal bilaterally, external ears normal and TM's normal bilaterally General nose exam: external nose normal and nares normal Face and sinus: normal facial exam, sinuses nontender and face symmetric Mouth: oral mucosae normal, lip normal, tongue normal, oropharynx normal and moist mucous membranes Teeth and gingiva: dentition normal Throat: posterior oropharynx normal, uvula midline and tonsils absent Eyes General: appearance normal, both eyes and all related structures Neck Neck: normal visual inspection, full ROM, no lymphadenopathy, no meningeal signs, trachea midline, supple and no anterior neck swelling Thyroid: thyroid normal Resp Effort & Inspection: normal respiratory effort, able to speak in complete sentences and no respiratory distress Auscultation: clear to auscultation bilaterally, no rales, no rhonchi and no wheezes Cardio Rate: regular rate Rhythm: regular rhythm Heart Sounds: S1 normal and S2 normal Skin General skin exam: no rashes or lesions noted Neuro General: patient alert and patient awake Cognition: normal cognition Speech: speech normal Gait: normal gait Psych Appearance: grossly normal and well kempt Mental Status: mental status grossly normal Speech and Movement: speech and movement normal Course Vital Signs Vital signs: Vital Signs Temperature 36.5 C 03/18/21 08:04 Pulse 76 03/18/21 08:04 Respiratory Rate 16 03/18/21 08:04 Blood Pressure 117/73 03/18/21 08:04 Pulse Oximetry 96 03/18/21 08:04 Temperature 36.5 C 03/18/21 08:04 Temperature Source Skin 03/18/21 08:04 Pulse 76 03/18/21 08:04 Respiratory Rate 16 03/18/21 08:04 Respiratory Effort Non-Labored 03/18/21 08:04 Blood Pressure 117/73 03/18/21 08:04 Blood Pressure Position Sitting 03/18/21 08:04 Pulse Oximetry 96 03/18/21 08:04 Oxygen Delivery Method Room Air 03/18/21 08:04 Oxygen Flow Rate 0 03/18/21 08:04 Pain Level 7 03/18/21 08:04
--- NOTE | 2021-03-18 08:39 | NUR.NOTE ---
Nursing Note: Referral faxed to [facility] Pulmonology for follow up. Lynda Murillo
[2021-03-19 11:48] LABS: COVID-19 RT-PCR UVMMC Result Negative (Negative)
--- NOTE | 2021-03-19 17:11 | NUR.NOTE ---
Nursing Note: patient contacted and notified of negative covid results.
== END 2021-03-18 08:50 | disposition home or self-care (01) ==
PROVIDERS: Emergency Provider Physician Assistant; PCP Internal Medicine
DX: R07.0 Pain in throat (principal); R50.9 Fever, unspecified; R05 Cough; R06.00 Dyspnea, unspecified; Z20.822 Contact with and (suspected) exposure to COVID-19; Z03.818 Encounter for observation for suspected exposure to other biological agents ruled out
CPT/HCPCS: 87880; 99282; U0003; U0005; 87081; 99283

== ENCOUNTER 2021-05-03 09:15 | Outpatient (CLI) | payer MEDICARE, MEDICAID, SELFPAY ==
--- NOTE | 2021-05-03 09:15 | RT.EKG_ITS ---
APPROVED REPORT Exam: Resting ECG Reason for Exam: Chest Pain Patient Location: O HR:52 bpm ECG Measurements Heart Rate 52 AXIS SD 165 P 64 QRSd 84 QRS 71 QT 397 T 38 QTc 368 Conclusion Sinus bradycardia...rate< 60 Normal Electrocardiogram
== END 2021-05-03 09:16 ==
LOC: DI.CM 09:16
PROVIDERS: PCP Family Medicine; Visit Provider Nurse Practitioner Family
DX: R07.9 Chest pain, unspecified (principal)
CPT/HCPCS: 93010

== ENCOUNTER 2021-05-03 10:26 | Emergency (ER) | payer MEDICARE, MEDICAID, SELFPAY ==
[2021-05-03] VITALS (9 sets, daily range): BP systolic 117–124; BP diastolic 66–76; PULSE 50–59; RESP 12–22; TEMP 36.7; O2SAT 95–98
--- NOTE | 2021-05-03 10:15 | RT.EKG_ITS ---
APPROVED REPORT Exam: Resting ECG Reason for Exam: chest pain Patient Location: E HR:51 bpm ECG Measurements Heart Rate 51 AXIS SC 173 P 47 QRSd 93 QRS 62 QT 413 T 33 QTc 382 Conclusion Sinus bradycardia No ST elevation
--- NOTE | 2021-05-03 10:36 | ED.GENADUL_ITS ---
Discharge Plan Disposition Patient Disposition: HOME Condition: Stable Discharge Details Clinical Impression: Chest pain Primary Care Provider: Dustin Garcia ED Provider: Emmanuel Elliott Home Meds and New Rx's Prescriptions: Continued magnesium 200 mg PO DAILY RF: 0 cromolyn 5.2 mg/spray (4 %) spray,non-aerosol 1 spray intranasal ONCE RF: 0 multivitamin Tablet 1 tab PO DAILY RF: 0 coenzyme Q10 [Co Q-10] 200 mg Capsule 200 PO DAILY RF: 0 L.acid-L.rham-B.breve-S.therm 3 billion cell Tablet,Chewable 2 tab PO DAILY RF: 0 Cranactin DAILY RF: 0 Graefruit Seed Extract PO DAILY RF: 0 Discharge Instructions Instructions: Chest Pain (ED) Additional Instructions: Work-up in the ER does not reveal any obvious emergent process. Please watch for new or worsening symptoms and return to the ER for any concerns. Please follow-up with your primary care provider as already scheduled tomorrow. Also, please follow-up with your sawmill production worker, neurologist, etc. as already scheduled for further evaluation of your ongoing symptoms Medical Decision Making 60-year-old gentleman who reports symptoms that have been going on since at least October, has been seen at [facility] in the ER, subsequent follow-up with ENT, pulmonology, infectious disease, GI, and now with neurology, presenting from the urgent care for what he describes as worsening chest pain but he describes the chest pain as more of a esophageal or tracheal spasm, difficulty clearing secretions. Clinically he appears well, nontoxic and based upon his presentation I have little suspicion for ACS, PE, etc. I did witness him clearing his throat multiple times here in the ER and I do question if this is more GI or pulmonary related in nature. He is agreeable to obtaining a cardiac work-up including delta troponin and D-dimer. Given my low suspicion for ACS, will not initiate aspirin therapy Initial evaluation here in the ER was unremarkable for any obvious emergent process. Calcium minimally low at 8.2, total bili slightly elevated at 1.6 but no epigastric right upper quadrant discomfort. LFTs otherwise unremarkable. Troponin less than 0.05, BNP of 37, D-dimer negative at 297. Will not pursue CTA. Chest x-ray negative Patient made aware of the initial findings, he is agreeable to awaiting a delta troponin. Patient ambulatory without difficulty. He also tolerated p.o. intake without difficulty Delta troponin remains less than 0.05. Upon reevaluation we discussed his repeat troponin. Patient is scheduled to be seen by his primary care provider tomorrow and have outpatient appointment with both neurology and pulmonology. Patient is comfortable discharge and has no ad ditional questions or concerns. Standard discharge and return precautions provided This documentation was generated using [employer] system, please disregard any oddities of phrase or misspellings. Medical Records Medical records reviewed: Yes I reviewed the patient's medical records. Imaging Data Radiologic Study: Attestation: I personally reviewed and interpreted this imaging study as follows: Imaging: X-Ray Radiologist's impression: Exam(s) XR CHEST 2V PA LATERAL EXAM: XR CHEST 2V PA LATERAL CLINICAL HISTORY: chest pain TECHNIQUE: 2D digital imaging was performed of the chest. Two images were obtained. PA and lateral views were obtained. COMPARISON: CR XR CHEST 2V PA LATERAL from 12/21/2020 FINDINGS: MEDIASTINUM: Normal. HEART: Normal. PULMONARY VASCULATURE: Normal. LUNGS: Clear. PLEURAL SPACE: No pleural effusion or pneumothorax. BONE:Within normal limits for the patient's age. OTHER FINDINGS:Normal. IMPRESSION: No acute pulmonary findings. Lab Data Lab results reviewed: Yes I reviewed the patient's lab results. Labs: Laboratory Tests Range/Units 05/03/21 05/03/21 05/03/21 10:40 10:40 10:40 WBC (4.4-10.8) 10^3/uL 7.49 RBC (4.36-5.78) 10^6/uL 4.80 Hgb (13.5-17.5) g/dL 15.0 Hct (40.0-50.0) % 44.2 MCV (80-95) fL 92.1 MCH (27.0-33.0) pg 31.3 MCHC (32.0-36.0) % 33.9 RDW (11.8-14.1) % 12.9 Plt Count (130-400) 10^3/uL 247 MPV (8.0-11.0) fL 9.4 Immature Gran % 0.4 Neutrophils % 72.7 Lymphocytes % 17.2 Monocytes % 6.5 Eosinophils % 2.3 Basophils % 0.9 Nucleated RBC % % 0 Absolute Neutrophils (1.2-6.7) 10^3/uL 5.44 Absolute Lymphocytes (1.2-3.4) 10^3/uL 1.29 Absolute Monocytes (0.1-0.8) 10^3/uL 0.49 Absolute Eosinophils (0.0-0.7) 10^3/uL 0.17 Absolute Basophils (0.0-0.2) 10^3/uL 0.07 D-Dimer (<500) ng/mlFEU 297 Sodium (136-145) mmol/L 142 Potassium (3.5-5.1) mmol/L 3.8 Chloride (98-107) mmol/L 108 H Carbon Dioxide (21.0-32.0) mmol/L 29.1 Anion Gap (3-11) mmol/L 4.9 BUN (7-18) mg/dL 18 Creatinine (0.70-1.30) mg/dL 0.7 Estimated GFR/1.73 m2 (mL/min/1.73m2) >= 60.00 Glucose (74-106) mg/dL 93 Calcium (8.5-10.1) mg/dL 8.2 L Magnesium (1.8-2.4) mg/dL 2.3 Total Bilirubin (0.2-1.0) mg/dL 1.6 H AST (15-37) U/L 21 ALT (16-63) U/L 30 Alkaline Phosphatase (46-116) U/L 62 Troponin I (<0.06) ng/mL < 0.05 NT-Pro-B Natriuret Pep (<300) pg/mL 37 Total Protein (6.4-8.2) g/dL 6.5 Albumin (3.4-5.0) g/dL 3.7 Range/Units 05/03/21 14:00 WBC (4.4-10.8) 10^3/uL RBC (4.36-5.78) 10^6/uL Hgb (13.5-17.5) g/dL Hct (40.0-50.0) % MCV (80-95) fL MCH (27.0-33.0) pg MCHC (32.0-36.0) % RDW (11.8-14.1) % Plt Count (130-400) 10^3/uL MPV (8.0-11.0) fL Immature Gran % Neutrophils % Lymphocytes % Monocytes % Eosinophils % Basophils % Nucleated RBC % % Absolute Neutrophils (1.2-6.7) 10^3/uL Absolute Lymphocytes (1.2-3.4) 10^3/uL Absolute Monocytes (0.1-0.8) 10^3/uL Absolute Eosinophils (0.0-0.7) 10^3/uL Absolute Basophils (0.0-0.2) 10^3/uL D-Dimer (<500) ng/mlFEU Sodium (136-145) mmol/L Potassium (3.5-5.1) mmol/L Chloride (98-107) mmol/L Carbon Dioxide (21.0-32.0) mmol/L Anion Gap (3-11) mmol/L BUN (7-18) mg/dL Creatinine (0.70-1.30) mg/dL Estimated GFR/1.73 m2 (mL/min/1.73m2) Glucose (74-106) mg/dL Calcium (8.5-10.1) mg/dL Magnesium (1.8-2.4) mg/dL Total Bilirubin (0.2-1.0) mg/dL AST (15-37) U/L ALT (16-63) U/L Alkaline Phosphatase (46-116) U/L Troponin I (<0.06) ng/mL < 0.05 NT-Pro-B Natriuret Pep (<300) pg/mL Total Protein (6.4-8.2) g/dL Albumin (3.4-5.0) g/dL ECG Data Attestation: I personally reviewed and interpreted this ECG (s) as follows: Interpretation: Please see official report by Dr. Lake. Sinus bradycardia, ventricular to 51. No STEMI. HPI General Mode of arrival: ambulatory . Date/Time Provider Initiated Documentation: 05/03/21 10:29 . Limitations to Documentation: no limitations . Information obtained by: patient . HPI Narrative: This is a 60-year-old gentleman, past medical history of chronic cough, sinusitis, esophageal dysmotility, atonic bladder, self caths daily, presenting to the ER after being evaluated express care for chest pain. Patient states that he has a long and complicated history, he is concerned about the potential of a autoimmune or neurological disorder and is being worked up as an outpatient through [facility] toxicology, pulmonology, neurology, etc. Today he states that he has had chest pain substernal 7 out of 10 that began back in October, he has been seen at [facility] ER for this for a cardiac rule out, nothing was ever found. He states since October the pain has become more consistent and is now present on a daily basis, he was seen by pulmonology yesterday, to be seen by his primary care provider tomorrow, but simply cannot wait. He states the pain is constant, nothing makes it worse or better. Occasionally he feels generalized weakness an d dizziness like he could pass out but not like the room is spinning. Patient states that he has been tested for Aspergillus in the past and is also concerned about his overall immune response because he was on fluoroquinolones at least 17 times since 1997. He states that he was tested for Covid 1 month ago and was negative. Denies headache, fever, neck pain, back pain, abdominal pain, nausea, vomiting, change in bowel or bladder function, numbness, tingling, focal weakness. Denies pain or swelling in his legs. Denies history of DVT or PE. Patient uses marijuana products daily but denies smoking cigarettes. Reports occasional alcohol use but denies any other drug use. Also reports occasional shortness of breath for months, typically worse in the morning. Patient feels as though his symptoms are more of a tracheal issue, phlegm buildup, and he is scheduled for a bronchoscopy and a bronchial lavage Related Data Home Medications Medication Instructions Recorded Confirmed Cranactin DAILY 03/18/21 05/02/21 Graefruit Seed Extract PO DAILY 03/18/21 05/02/21 L.acid-L.rham-B.breve-S.therm 2 tab PO DAILY 03/18/21 05/03/21 coenzyme Q10 [Co Q-10] 200 PO DAILY 03/18/21 05/02/21 multivitamin 1 tab PO DAILY 03/18/21 05/03/21 cromolyn 5.2 mg/spray (4 %) nasal 1 spray INTRANASAL ONCE 03/28/21 05/03/21 spray magnesium 200 mg PO DAILY 03/28/21 05/02/21 Allergies Allergy/AdvReac Type Severity Reaction Status Date / Time fentanyl Allergy Severe Unverified 05/03/21 10:40 sulfamethoxazole Allergy Severe Skin Rash Verified 05/03/21 10:40 [From Bactrim] trimethoprim [From Bactrim] Allergy Severe Skin Rash Verified 05/03/21 10:40 Penicillins Allergy Anaphylaxis Unverified 05/03/21 10:41 prednisone AdvReac Severe Unverified 05/03/21 10:40 Sulfa (Sulfonamide AdvReac Severe Verified 05/03/21 10:40 Antibiotics) General ARIANA: 4 Review of Systems Constitutional Constitutional: Reports fatigue, Denies fever(s) and Denies headache(s) Eyes Eyes: Denies change in vision ENT Ears, Nose, Mouth, and Throat: Denies headache(s) and Denies neck pain Cardiovascular Cardiovascular: Reports chest pain and Reports dyspnea Respiratory Respiratory: Reports cough and Reports dyspnea Gastrointestinal Gastrointestinal: Denies abdominal pain, Denies nausea and Denies vomiting Genitourinary Genitourinary: Denies dysuria Musculoskeletal Musculoskeletal: Denies back pain, Denies neck pain, Denies numbness and Denies tingling Integumentary/Breasts Skin/Breast: Denies rash Neurologic Neurologic: Denies headache(s), Denies numbness, Denies tingling and Reports weakness (Generalized) Endocrine Endocrine: Reports fatigue PFSH Social History Smoking/Tobacco Use Status: Never Smoking risk assessment performed?: Yes Alcohol Intake: current Alcohol Intake frequency: a few times a month Alcohol type: beer Drug use: Socially Substance use type: marijuana Adopted: No Caregiver/Support person: No Foster care: No Housing: apartment Number of Children: 0 number of grandchildren: 0 Communication Needs: None Education Level: high school Do you need help understanding health information?: Rarely Pets and animals: No Sexually active: No Current gender identity: male What is your relationship status?: refused to answer How often do you talk on the phone with friends or family?: three or more times per week Do you belong to any clubs or organized social groups?: no Panel score (0-1 are the most socially isolated patients): 1 What type of physical activity do you participate in: walking, weight lifting and yoga Duration: 45-60 minutes/day Frequency: daily Carmela/Congregational: None Special carmela needs: No Seatbelt use: always Drive intox or ride w/intox feedmobile driver: No Do you feel safe at home: Yes Do you feel safe in your relationship?: Yes Exam Const General: cooperative, healthy appearing, comfortable and no acute distress Orientation: alert, awake and oriented x3 [facility] Head: normal to inspection, normocephalic and atraumatic Face and sinus: normal facial exam Mouth: moist mucous membranes Throat: posterior oropharynx normal Eyes General: appearance normal, both eyes and all related structures Conjunctivae: conjunctivae normal Neck Neck: normal visual inspection, full ROM, trachea midline and supple Resp Effort & Inspection: normal respiratory effort and able to speak in complete sentences Auscultation: clear to auscultation bilaterally Cardio Rate: regular rate Rhythm: regular rhythm GI Palpation: soft, not firm, no guarding, no pulsatile masses and nontender Auscultation: normal bowel sounds Back/Spine/Pelvis Back: No back tenderness Skin General skin exam: no rashes or lesions noted Neuro General: patient alert, patient awake, patient oriented x3, moves all extremities and no focal motor deficits Cognition: normal cognition Gait: normal gait Motor: muscle tone normal throughout Sensory Exam: no sensory deficits noted Extrem General: normal to inspection, full ROM, capillary refill normal, no pedal edema and no calf tenderness Psych Appearance: grossly normal Mental Status: mental status grossly normal
[2021-05-03 11:26] LABS: Abs Immature Grans 0.03 10^3/uL (0.0-0.06); Absolute Basophil Count 0.07 10^3/uL (0.0-0.2); Absolute Eosinophil Count 0.17 10^3/uL (0.0-0.7); Absolute Lymphocyte Count 1.29 10^3/uL (1.2-3.4); Absolute Monocyte Count 0.49 10^3/uL (0.1-0.8); Absolute Neutrophil Count 5.44 10^3/uL (1.2-6.7); Basophils % 0.9; Eosinophils % 2.3; HCT 44.2 % (40.0-50.0); Immature Grans % 0.4; Lymphocytes % 17.2; MCH 31.3 pg (27.0-33.0); MCHC 33.9 % (32.0-36.0); MCV 92.1 fL (80-95); MPV 9.4 fL (8.0-11.0); Monocytes % 6.5; Neutrophils % 72.7; Nucleated RBC 0 %; Platelet Count 247 10^3/uL (130-400); RDW 12.9 % (11.8-14.1); RDW-SD 43.4 fL; WBC 7.49 10^3/uL (4.4-10.8)
--- NOTE | 2021-05-03 11:30 | DI.RAD_ITS ---
Exam(s) XR CHEST 2V PA LATERAL EXAM: XR CHEST 2V PA LATERAL CLINICAL HISTORY: chest pain TECHNIQUE: 2D digital imaging was performed of the chest. Two images were obtained. PA and lateral views were obtained. COMPARISON: CR XR CHEST 2V PA LATERAL from 12/21/2020 FINDINGS: MEDIASTINUM: Normal. HEART: Normal. PULMONARY VASCULATURE: Normal. LUNGS: Clear. PLEURAL SPACE: No pleural effusion or pneumothorax. BONE:Within normal limits for the patient's age. OTHER FINDINGS:Normal. IMPRESSION: No acute pulmonary findings. DATA REPOSITORY: RADIATION DOSE DELIVERED:
[2021-05-03 11:59] LABS: ALT 30 U/L (16-63); AST 21 U/L (15-37); Albumin 3.7 g/dL (3.4-5.0); Alkaline Phosphatase 62 U/L (46-116); Anion Gap 4.9 mmol/L (3-11); BUN 18 mg/dL (7-18); Bilirubin, Total 1.6 mg/dL (0.2-1.0); CO2 29.1 mmol/L (21.0-32.0); CREATININE 0.7 mg/dL (0.70-1.30); Calcium 8.2 mg/dL (8.5-10.1); Chloride 108 mmol/L (98-107); Glucose 93 mg/dL (74-106); Magnesium 2.3 mg/dL (1.8-2.4); NT-proBNP 37 pg/mL (<300); Potassium 3.8 mmol/L (3.5-5.1); Sodium 142 mmol/L (136-145); Total Protein 6.5 g/dL (6.4-8.2)
[2021-05-03 12:00] LABS: Troponin I < 0.05 ng/mL (<0.06)
[2021-05-03 12:06] LABS: D-Dimer 297 ng/mlFEU (<500)
[2021-05-03 14:29] LABS: Troponin I < 0.05 ng/mL (<0.06)
== END 2021-05-03 14:56 | disposition home or self-care (01) ==
PROVIDERS: Emergency Provider Physician Assistant; PCP Family Medicine
DX: R07.9 Chest pain, unspecified (principal); R06.02 Shortness of breath; R05.3 Chronic cough
CPT/HCPCS: 36415; 80053; 93005; 99284; 71046; 83735; 83880; 84484; 85025; 85379; 93010

== ENCOUNTER 2021-05-08 01:44 | Outpatient (CLI) | payer MEDICARE, MEDICAID, SELFPAY ==
[2021-05-08] MEDS: Albuterol HFA 18 GM 200 PUFF INH IH (15:45)
[2021-05-08] MEDS: Inhaler, Assist Device 1 EACH MC (15:45)
[2021-05-08] MEDS: Methacholine 100 MG VIAL IH (15:45)
--- NOTE | 2021-05-08 16:07 | W.PFT ---
Date of service: 05/08/21 Time of Service: 13:10 Pulmonary Function Test Result Requesting Provider Yvonne Indications: Chronic Cough Interpretation Spirometry: There is no airflow limitation at baseline. There is not a significant decline in FEV1 with administration of methacholine (13% decrease in FEV1 with 16 mg/mL methacholine administered) Impression Negative methacholine challenge test. Clinical Correlation therefore is recommended.
--- NOTE | 2021-05-09 14:21 | PFT_ITS ---
Date of service: 05/08/21 Time of Service: 13:10 Pulmonary Function Test Result Requesting Provider Duchene Indications: Chronic cough Interpretation Spirometry: There is no airflow limitation. Flow volume loop and volume-time curve are normal. Lung Volumes: Lung volumes are normal. Diffusion Capacity: Diffusion capacity is normal. Airway Pressure: Airways resistance is normal. Impression Normal pulmonary function test Note: When compared to pulmonary function testing completed at [facility] on 09/01/2020 the FEV1 and FVC are essentially unchanged. The DLCO is also unchanged. Clinical Correlation therefore is recommended.
== END 2021-05-08 01:45 | disposition home or self-care (01) ==
LOC: RT 01:45
PROVIDERS: PCP Family Medicine; Visit Provider Student in an Organized Health Care Education/Training Program
DX: R05.3 Chronic cough (principal)
CPT/HCPCS: 94060; 94726; 94729; 95070; 94010; J7674

== ENCOUNTER 2021-05-17 02:35 | Outpatient (CLI) | payer MEDICARE, MEDICAID, SELFPAY ==
[2021-05-17 12:30] LABS: C-Reactive Protein 0.06 mg/dL (0.0-0.3)
== END 2021-05-17 02:36 | disposition home or self-care (01) ==
LOC: LOS 02:35
PROVIDERS: PCP Family Medicine; Visit Provider Family Medicine
DX: R51.9 Headache, unspecified (principal)
CPT/HCPCS: 36415; 86140

== ENCOUNTER 2021-05-17 09:53 | Outpatient (REF) | payer MEDICARE, MEDICAID, SELFPAY ==
[2021-05-19 10:59] LABS: COVID-19 RT-PCR UVMMC Result Negative (Negative)
== END 2021-05-17 09:54 | disposition home or self-care (01) ==
LOC: LBN 09:53
PROVIDERS: PCP Family Medicine; Visit Provider Nurse Practitioner Family
DX: Z20.822 Contact with and (suspected) exposure to COVID-19 (principal)
CPT/HCPCS: U0003

== ENCOUNTER 2021-05-21 02:05 | Outpatient (CLI) | payer MEDICARE, MEDICAID, SELFPAY ==
[2021-05-21 12:15] LABS: Source Nasal/Nares
[2021-05-21 18:23] LABS: COVID-19 PCR Negative (Negative)
== END 2021-05-21 02:06 | disposition home or self-care (01) ==
LOC: LBO 02:05
PROVIDERS: PCP Family Medicine; Visit Provider Student in an Organized Health Care Education/Training Program
DX: Z20.822 Contact with and (suspected) exposure to COVID-19 (principal); R05.8 Other specified cough; Z01.818 Encounter for other preprocedural examination
CPT/HCPCS: 87635

== ENCOUNTER 2021-05-22 07:49 | Day surgery (SDC) | payer MEDICARE, MEDICAID, SELFPAY ==
--- NOTE | 2021-05-20 10:51 | W.ANESCON ---
General Date of Service Date of Service: 05/20/21 Reason for Consult Requesting Provider: Jamila Russell How Consult Conducted:: Chart Review Reason for Consult:: fentanyl allergy and upcoming bronch Consult Recommendation after Review:: ok to proceed, likely does not have a fentanyl allergy. Meds Allergies and Home Medications Allergies Allergy/AdvReac Type Severity Reaction Status Date / Time egg Allergy Severe egg-based Verified 05/17/21 09:04 vaccines required epi injection fentanyl Allergy Severe Verified 05/17/21 09:04 sulfamethoxazole Allergy Severe Skin Rash Verified 05/17/21 09:04 [From Bactrim] trimethoprim [From Bactrim] Allergy Severe Skin Rash Verified 05/17/21 09:04 Penicillins Allergy Anaphylaxis Verified 05/17/21 09:04 prednisone AdvReac Severe Verified 05/17/21 09:04 Sulfa (Sulfonamide AdvReac Severe States it Verified 05/17/21 09:06 Antibiotics) made him numb on the right side which made him col levofloxacin AdvReac Intermediate Neuropathy Verified 05/17/21 09:06 Home Medication Medication Instructions Recorded Cranactin DAILY 03/18/21 Graefruit Seed Extract PO DAILY 03/18/21 L.acid-L.rham-B.breve-S.therm 2 tab PO DAILY 03/18/21 coenzyme Q10 [Co Q-10] 200 PO DAILY 03/18/21 multivitamin 1 tab PO DAILY 03/18/21 cromolyn 5.2 mg/spray (4 %) nasal 1 spray INTRANASAL ONCE 03/28/21 spray magnesium 200 mg PO DAILY 03/28/21 levalbuterol tartrate 45 2 inh INHALATION Q6H #15 g 05/17/21 mcg/actuation aerosol inhaler PFSH Active Problems Active Problems: Problem Status Onset Code Scalp tenderness R51.9 Peripheral neuropathy G62.9 Tear of medial meniscus of left knee, current S83.242A Chest pain R07.9 Chronic cough R05 Sinusitis J32.9 Esophageal dysmotility K22.4 Allergic rhinitis J30.9 Syncope R55 Nasal obstruction J34.89 Chronic sphenoidal sinusitis J32.3 Atonic bladder N31.2 Urethral stricture N35.919 Throat pain in adult R07.0 Dyspnea R06.00 Multiple complaints R68.89 Medical History Medical History Family history of prostate cancer Grandfather and uncles Peripheral neuropathy Scalp tenderness Tear of medial meniscus of left knee, current Tobacco Smoking/Tobacco Use Status: Never (former marijuana use) Passive smoking exposure: Yes (in childhood) Alcohol Alcohol Intake: current Alcohol intake frequency: a few times a month Alcohol type: beer Substance Use Substance use: Socially Substance use type: marijuana Vital Signs & Lab Results Point of Care Results Nursing Point of Care Results: No Data to Display Lab Results Blood Type / Crossmatch: No Data to Display Complete Blood Count: White Blood Count 7.49 10^3/uL (4.4-10.8) 05/03/21 10:40 05/03/21 Red Blood Count 4.80 10^6/uL (4.36-5.78) 05/03/21 10:40 05/03/21 Hemoglobin 15.0 g/dL (13.5-17.5) 05/03/21 10:40 05/03/21 Hematocrit 44.2 % (40.0-50.0) 05/03/21 10:40 05/03/21 Platelet Count 247 10^3/uL (130-400) 05/03/21 10:40 05/03/21 Complete Metabolic Panel: Sodium Level 142 mmol/L (136-145) 05/03/21 10:40 05/03/21 Potassium Level 3.8 mmol/L (3.5-5.1) 05/03/21 10:40 05/03/21 Chloride Level 108 mmol/L (98-107) H 05/03/21 10:40 05/03/21 Carbon Dioxide Level 29.1 mmol/L (21.0-32.0) 05/03/21 10:40 05/03/21 Blood Urea Nitrogen 18 mg/dL (7-18) 05/03/21 10:40 05/03/21 Creatinine 0.7 mg/dL (0.70-1.30) 05/03/21 10:40 05/03/21 Estimated GFR/1.73 m2 >= 60.00 (mL/min/1.73m2) 05/03/21 10:40 05/03/21 Magnesium Level 2.3 mg/dL (1.8-2.4) 05/03/21 10:40 05/03/21 Calcium Level 8.2 mg/dL (8.5-10.1) L 05/03/21 10:40 05/03/21 Albumin 3.7 g/dL (3.4-5.0) 05/03/21 10:40 05/03/21 Glucose Level 93 mg/dL (74-106) 05/03/21 10:40 05/03/21 C-Reactive Protein 0.06 mg/dL (0.0-0.3) 05/17/21 09:57 05/17/21 Liver Function Panel: Alanine Aminotransferase (ALT/SGPT) 30 U/L (16-63) 05/03/21 10:40 05/03/21 Aspartate Amino Transf (AST/SGOT) 21 U/L (15-37) 05/03/21 10:40 05/03/21 Coagulation Panel: D-Dimer 297 ng/mlFEU (<500) 05/03/21 10:40 05/03/21 Cardiac Panel: Troponin I < 0.05 ng/mL (<0.06) 05/03/21 14:00 05/03/21 VA-Tpr-V-Type Natriuretic Peptide 37 pg/mL (<300) 05/03/21 10:40 05/03/21 Arterial Blood Gas: No Data to Display Venous Blood Gas: No Data to Display Pancreas Panel: No Data to Display Thyroid Panel: No Data to Display Infectious Disease: Coronavirus (COVID-19)(PCR) Negative (Negative) 05/17/21 09:30 05/17/21 Blood Cultures: No Data to Display Toxicology Panel: No Data to Display Imaging and Studies Imaging and Studies EKG Summary: 05/17: sinus paco. Echocardiogram Summary: 12/30/20: LVEF 65%, RV Fxn WNL. Pulmonary Function Summary: 05/09/21: normal PFT. Anesthesia Assessment and Plan Anesthesia History Personal History: PONV Family History: No Family History of Anesthesia Complications Preoperative Comments:: 61 yo male with chronic cough for bronchoscopy. Sig PmHx: chronic cough (has seen multiple services), esophageal dysmotility, neuropathy/tendon pain (likely related to antibiotic use), never tobacco/former cannabis, occ EtOH. Previous anes: Mac 4 grade 1 x 2 diff cases, easy mask. He has a fentanyl allergy listed here at [facility], but not at [facility]. For both of his previous anes events at [facility] he has received fentanyl (100 mcg for one and 250 mcg for the other). Neither post op note makes note of a fentanyl reaction. He does have a post op note that states that he wanted to be admitted over night, but he was having no pain or nausea or other reason that would necessitate his need to be admitted. He was told he had to leave, and that if he felt he couldn't be home safely then to return to the ED. There is also a clinical pharmacology note that states that He is still concerned about two prior possible adverse reactions to fentanyl, although my assessment was the he experienced simple fainting after surgery, in part due to pain, and in part due to his sarthak-op meds.
[2021-05-22 08:04] VITALS: BP 114/69; PULSE 66; RESP 16; TEMP 36.4; O2SAT 98
[2021-05-22] MEDS: Lactated Ringers 1,000 ML 30 ML IV (08:26)
--- NOTE | 2021-05-22 08:45 | W.ANESPRE ---
General Info Date of Service Date Performed: 05/22/21 Height: 5 ft 6 in Weight: 63.7 kg Body Mass Index (BMI): 22.6 Surgical Procedure: Operation Date: 05/22/21 09:10 Proposed Procedures Side Surgeon p Bronchoscopy WITH BRONCHIAL WASHINGS Jamila Russell MD Actual Procedures Side Surgeon p Bronchoscopy WITH BRONCHIAL WASHINGS Jamila Russell MD Meds Allergies and Home Medications Allergies Allergy/AdvReac Type Severity Reaction Status Date / Time egg Allergy Severe egg-based Verified 05/22/21 08:07 vaccines required epi injection fentanyl Allergy Severe Verified 05/22/21 08:07 sulfamethoxazole Allergy Severe Skin Rash Verified 05/22/21 08:07 [From Bactrim] trimethoprim [From Bactrim] Allergy Severe Skin Rash Verified 05/22/21 08:07 Penicillins Allergy Anaphylaxis Verified 05/22/21 08:07 prednisone AdvReac Severe Verified 05/22/21 08:07 Sulfa (Sulfonamide AdvReac Severe States it Verified 05/22/21 08:07 Antibiotics) made him numb on the right side which made him col levofloxacin AdvReac Intermediate Neuropathy Verified 05/22/21 08:07 Home Medication Medication Instructions Recorded Cranactin DAILY 03/18/21 Graefruit Seed Extract 10 drp PO DAILY 03/18/21 L.acid-L.rham-B.breve-S.therm 2 tab PO DAILY 03/18/21 coenzyme Q10 [Co Q-10] 200 mg PO DAILY 03/18/21 multivitamin 1 tab PO DAILY 03/18/21 cromolyn 5.2 mg/spray (4 %) nasal 1 spray INTRANASAL ONCE 03/28/21 spray magnesium 200 mg PO DAILY 03/28/21 levalbuterol tartrate 45 2 inh INHALATION Q6H #15 g 05/17/21 mcg/actuation aerosol inhaler Current Visit Medications: Current Medications Generic Name Dose Route Start Last Admin Trade Name Freq PRN Reason Stop Dose Admin Ringer's Solution 1,000 mls @ 30 mls/hr 05/22/21 06:00 05/22/21 08:26 IV 06/20/21 23:59 30 mls/hr INFUSION MARY Administration IV Miscellaneous Supplies 1 each 05/22/21 06:00 Iv Access IV 06/20/21 23:59 DIRECTED MARY Sodium Chloride 0 ml 05/22/21 06:00 Normal Saline Flush 10 Ml Syr IV 06/20/21 23:59 PRN PRN Sodium Chloride 0 ml 05/22/21 06:00 Normal Saline 10 Ml Vial IJ 06/20/21 23:59 DIRECTED PRN Sterile Water 0 ml 05/22/21 06:00 Water,Injection,Sterile 10 Ml Vial IJ 06/20/21 23:59 DIRECTED PRN PFSH Active Problems Active Problems: Problem Status Onset Code Throat pain in adult R07.0 Dyspnea R06.00 Multiple complaints R68.89 Urethral stricture N35.919 Atonic bladder N31.2 Chronic sphenoidal sinusitis J32.3 Nasal obstruction J34.89 Syncope R55 Allergic rhinitis J30.9 Esophageal dysmotility K22.4 Sinusitis J32.9 Chronic cough R05 Chest pain R07.9 Scalp tenderness R51.9 Peripheral neuropathy G62.9 Tear of medial meniscus of left knee, current S83.242A Medical History Medical History Family history of prostate cancer Grandfather and uncles Peripheral neuropathy Scalp tenderness Tear of medial meniscus of left knee, current Urethral stricture Urethral stricture in male Tobacco Smoking/Tobacco Use Status: Never Passive smoking exposure: Yes (in childhood) Alcohol Alcohol Intake: current Alcohol intake frequency: a few times a month Alcohol type: beer Substance Use Substance use: Socially Substance use type: marijuana Vital Signs and Lab Results Vital Signs Most Recent Vital Signs in EMR: Most Recent Vital Signs Temp Pulse Resp BP Pulse Ox 36.4 C L 66 16 114/69 98 05/22/21 08:04 05/22/21 08:04 05/22/21 08:04 05/22/21 08:04 05/22/21 08:04 Lab Results Blood Type / Crossmatch: No Data to Display Complete Blood Count: White Blood Count 7.49 10^3/uL (4.4-10.8) 05/03/21 10:40 05/03/21 Red Blood Count 4.80 10^6/uL (4.36-5.78) 05/03/21 10:40 05/03/21 Hemoglobin 15.0 g/dL (13.5-17.5) 05/03/21 10:40 05/03/21 Hematocrit 44.2 % (40.0-50.0) 05/03/21 10:40 05/03/21 Platelet Count 247 10^3/uL (130-400) 05/03/21 10:40 05/03/21 Complete Metabolic Panel: Sodium Level 142 mmol/L (136-145) 05/03/21 10:40 05/03/21 Potassium Level 3.8 mmol/L (3.5-5.1) 05/03/21 10:40 05/03/21 Chloride Level 108 mmol/L (98-107) H 05/03/21 10:40 05/03/21 Carbon Dioxide Level 29.1 mmol/L (21.0-32.0) 05/03/21 10:40 05/03/21 Blood Urea Nitrogen 18 mg/dL (7-18) 05/03/21 10:40 05/03/21 Creatinine 0.7 mg/dL (0.70-1.30) 05/03/21 10:40 05/03/21 Estimated GFR/1.73 m2 >= 60.00 (mL/min/1.73m2) 05/03/21 10:40 05/03/21 Magnesium Level 2.3 mg/dL (1.8-2.4) 05/03/21 10:40 05/03/21 Calcium Level 8.2 mg/dL (8.5-10.1) L 05/03/21 10:40 05/03/21 Albumin 3.7 g/dL (3.4-5.0) 05/03/21 10:40 05/03/21 Glucose Level 93 mg/dL (74-106) 05/03/21 10:40 05/03/21 C-Reactive Protein 0.06 mg/dL (0.0-0.3) 05/17/21 09:57 05/17/21 Liver Function Panel: Alanine Aminotransferase (ALT/SGPT) 30 U/L (16-63) 05/03/21 10:40 05/03/21 Aspartate Amino Transf (AST/SGOT) 21 U/L (15-37) 05/03/21 10:40 05/03/21 Coagulation Panel: D-Dimer 297 ng/mlFEU (<500) 05/03/21 10:40 05/03/21 Cardiac Panel: Troponin I < 0.05 ng/mL (<0.06) 05/03/21 14:00 05/03/21 VC-Xdh-K-Type Natriuretic Peptide 37 pg/mL (<300) 05/03/21 10:40 05/03/21 Arterial Blood Gas: No Data to Display Venous Blood Gas: No Data to Display Pancreas Panel: No Data to Display Thyroid Panel: No Data to Display Infectious Disease: Coronavirus (COVID-19)(PCR) Negative (Negative) 05/21/21 11:14 05/21/21 Coronavirus 2019 Source Nasal/Nares 05/21/21 11:14 05/21/21 Blood Cultures: No Data to Display Toxicology Panel: No Data to Display Imaging and Studies Imaging and Studies EKG Summary: 05/17: sinus paco. Echocardiogram Summary: 12/30/20: LVEF 65%, RV Fxn WNL. Pulmonary Function Summary: 05/09/21: normal PFT. Anesthesia Assessment and Plan Anesthesia History Personal History: PONV Family History: No Family History of Anesthesia Complications
== END 2021-05-22 07:50 | disposition home or self-care (01) ==
LOC: SUR 07:50
PROVIDERS: PCP Family Medicine; Visit Provider Student in an Organized Health Care Education/Training Program
DX: Z53.8 Procedure and treatment not carried out for other reasons (principal)
CPT/HCPCS: J2250

== ENCOUNTER 2021-05-31 11:14 | Outpatient (REF) | payer MEDICARE, MEDICAID, SELFPAY ==
[2021-06-28 08:53] LABS: Fungus Smear No Fungi Seen
== END 2021-05-31 11:15 | disposition home or self-care (01) ==
LOC: LBN 11:14
PROVIDERS: PCP Family Medicine; Visit Provider Family Medicine
DX: J32.8 Other chronic sinusitis (principal)
CPT/HCPCS: 87102; 87206

== ENCOUNTER 2021-06-05 01:25 | Outpatient (CLI) | payer MEDICARE, MEDICAID, SELFPAY | END 2021-06-05 01:26 | disposition home or self-care (01) | LOC: RT 01:25 | PROVIDERS: PCP Family Medicine; Visit Provider Student in an Organized Health Care Education/Training Program | DX: R05.3 Chronic cough (principal) | CPT/HCPCS: 94762 ==

== ENCOUNTER 2021-06-05 08:45 | Outpatient (CLI) | payer MEDICARE, MEDICAID, SELFPAY ==
--- NOTE | 2021-06-05 13:20 | DI.RAD_ITS ---
Exam(s) XR KNEE LT 3V AP,LAT,DEANNA EXAM: XR KNEE LT 3V AP,LAT,DEANNA CLINICAL HISTORY: Worsening L knee pain, arthritis vs. mensical tear,M25.562. TECHNIQUE: 2D digital imaging was performed of the left knee. Four images were obtained. AP, later al and PA tunnel views were obtained. COMPARISON: No previous for comparison. FINDINGS: BONES: No acute fracture is present. No bony destructive lesion is seen. Enthesophytes are seen at t he anterior patella. JOINTS: The knee is normally aligned. No joint effusion is seen. The articular surfaces are well main tained. SOFT TISSUE: Normal. IMPRESSION: Unremarkable x-rays of the left knee. The joint spaces are well maintained. DATA REPOSITORY: RADIATION DOSE DELIVERED:
== END 2021-06-05 09:05 ==
PROVIDERS: PCP Family Medicine; Visit Provider Family Medicine
DX: M25.562 Pain in left knee (principal)
CPT/HCPCS: 73562; 94762

== ENCOUNTER 2021-06-13 02:29 | Outpatient (CLI) | payer MEDICARE, MEDICAID, SELFPAY ==
[2021-06-13 10:51] LABS: Source Nasal/Nares
[2021-06-13 14:12] LABS: COVID-19 PCR Negative (Negative)
== END 2021-06-13 02:30 | disposition home or self-care (01) ==
LOC: LBO 02:29
PROVIDERS: PCP Family Medicine; Visit Provider Student in an Organized Health Care Education/Training Program
DX: Z20.822 Contact with and (suspected) exposure to COVID-19 (principal); R05.8 Other specified cough
CPT/HCPCS: 87635

== ENCOUNTER 2021-06-15 07:02 | Day surgery (SDC) | payer MEDICARE, MEDICAID, SELFPAY ==
--- NOTE | 2021-06-15 07:04 | ANES.PREOP_ITS ---
General Info Date of Service Date Performed: 06/15/21 Height: 5 ft 6 in Weight: 63.7 kg Body Mass Index (BMI): 22.6 Surgical Procedure: Operation Date: 06/15/21 08:40 Proposed Procedures Side Surgeon p Leah Russell MD Meds Allergies and Home Medications Allergies Allergy/AdvReac Type Severity Reaction Status Date / Time egg Allergy Severe egg-based Verified 06/15/21 07:25 vaccines required epi injection fentanyl Allergy Severe Verified 06/15/21 07:25 sulfamethoxazole Allergy Severe Skin Rash Verified 06/15/21 07:25 [From Bactrim] trimethoprim [From Bactrim] Allergy Severe Skin Rash Verified 06/15/21 07:25 Penicillins Allergy Anaphylaxis Verified 06/15/21 07:25 prednisone AdvReac Severe Verified 06/15/21 07:25 Sulfa (Sulfonamide AdvReac Severe States it Verified 06/15/21 07:25 Antibiotics) made him numb on the right side which made him col levofloxacin AdvReac Intermediate Neuropathy Verified 06/15/21 07:25 Home Medication Medication Instructions Recorded Cranactin 2 cap PO DAILY 03/18/21 Graefruit Seed Extract 10 drp PO DAILY 03/18/21 L.acid-L.rham-B.breve-S.therm 2 tab PO DAILY 03/18/21 coenzyme Q10 [Co Q-10] 200 mg PO DAILY 03/18/21 multivitamin 1 tab PO DAILY 03/18/21 cromolyn 5.2 mg/spray (4 %) nasal 1 spray INTRANASAL ONCE 03/28/21 spray magnesium 200 mg PO DAILY 03/28/21 meclizine 25 mg tablet 25 mg PO DAILY PRN #30 tab 05/31/21 clotrimazole 1 % topical cream 1 applic TOPICAL BID #45 g 06/07/21 Current Visit Medications: Current Medications Generic Name Dose Route Start Last Admin Trade Name Freq PRN Reason Stop Dose Admin Ringer's Solution 1,000 mls @ 30 mls/hr 06/15/21 06:00 IV 06/26/21 23:59 INFUSION MARY IV Miscellaneous Supplies 1 each 06/15/21 06:00 Iv Access IV 06/26/21 23:59 DIRECTED MARY Sodium Chloride 0 ml 06/15/21 06:00 Normal Saline Flush 10 Ml Syr IV 06/26/21 23:59 PRN PRN Sodium Chloride 0 ml 06/15/21 06:00 Normal Saline 10 Ml Vial IJ 06/26/21 23:59 DIRECTED PRN Sterile Water 0 ml 06/15/21 06:00 Water,Injection,Sterile 10 Ml Vial IJ 06/26/21 23:59 DIRECTED PRN PFSH Active Problems Active Problems: Problem Status Onset Code Tinea corporis B35.4 Left medial knee pain M25.562 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 Throat pain in adult R07.0 Dyspnea R06.00 Multiple complaints R68.89 Urethral stricture N35.919 Atonic bladder N31.2 Chronic sphenoidal sinusitis J32.3 Nasal obstruction J34.89 Syncope R55 Allergic rhinitis J30.9 Esophageal dysmotility K22.4 Sinusitis J32.9 Chronic cough R05 Chest pain R07.9 Scalp tenderness R51.9 Peripheral neuropathy G62.9 Tear of medial meniscus of left knee, current S83.242A Medical History Active Problem List (Updated 06/15/21 @ 08:10 by Heather Lanier) Throat pain in adult (Acute) Dyspnea (Acute) Multiple complaints (Acute) Urethral stricture (Acute) Atonic bladder (Chronic) Chronic sphenoidal sinusitis (Acute) Nasal obstruction (Acute) Syncope (Chronic) Allergic rhinitis (Acute) Esophageal dysmotility (Acute) Sinusitis (Acute) Chronic cough (Acute) Chest pain (Acute) Tear of medial meniscus of left knee, current (Acute) Peripheral neuropathy (Acute) Scalp tenderness (Acute) History of atypical nevus (Acute) Left medial knee pain (Acute) Tinea corporis (Acute) Medical History (Updated 06/15/21 @ 08:10 by Heather Lanier) Family history of prostate cancer Grandfather and uncles History of postoperative nausea and vomiting patient states nausea/vomiting from surgery 2014 with fentanyl used in part History of urethral stricture surgery 2014 Urethral stricture Urethral stricture in male Tobacco Smoking/Tobacco Use Status: Never Passive smoking exposure: Yes (in childhood) Alcohol Alcohol Intake: current Alcohol intake frequency: a few times a month Alcohol ty pe: beer Substance Use Substance use: Socially Substance use type: marijuana Vital Signs and Lab Results Lab Results Blood Type / Crossmatch: No Data to Display Complete Blood Count: No Data to Display Complete Metabolic Panel: C-Reactive Protein 0.06 mg/dL (0.0-0.3) 05/17/21 09:57 05/17/21 Liver Function Panel: No Data to Display Coagulation Panel: No Data to Display Cardiac Panel: No Data to Display Arterial Blood Gas: No Data to Display Venous Blood Gas: No Data to Display Pancreas Panel: No Data to Display Thyroid Panel: No Data to Display Infectious Disease: Coronavirus (COVID-19)(PCR) Negative (Negative) 06/13/21 09:39 06/13/21 Coronavirus 2019 Source Nasal/Nares 06/13/21 09:39 06/13/21 Blood Cultures: No Data to Display Toxicology Panel: No Data to Display Imaging and Studies Imaging and Studies EKG Summary: 05/17: sinus paco. Echocardiogram Summary: 12/30/20: LVEF 65%, RV Fxn WNL. Pulmonary Function Summary: 05/09/21: normal PFT. Anesthesia Assessment and Plan Anesthesia History Personal History: PONV Family History: No Family History of Anesthesia Complications Exercise Tolerance Exercise Tolerance: Metabolic Equivalents>4 Pertinent Negatives Pertinent Negatives: No Symptoms of GERD, No Major Cardiovascular Symptoms or Complaints, No Major Pulmonary Symptoms or Complaints and No History of CVA/TIA Cardiac & Pulmonary Exam Cardiac Exam: Normal S1/S2 Heart Sounds Pulmonary Exam: Clear Bilateral Breath Sounds Implantable Cardiac Device Does patient have a Pacemaker or an ICD?: No Airway Exam Known Difficult Airway: No Mallampati Class: 3 Mouth Opening: Normal (> 3cm) Thyromental Distance: Greater than 3 cm Neck Range of Motion: Limited ROM Neck Circumference: Normal Teeth Condition: Generalized Poor Dentition Tooth Numberin. Missing back three molars per patient ASA Classification ASA Score: ASA 2 Emergency Case?: No NPO Status NPO Status: NPO Clears >2 hours, Solids >8 hours Anesthesia Plan Resuscitation Status: Full Code Anesthesia Technique: MAC Anesthesia Airway Planned: Natural Airway Monitors Used: Standard Monitors
[2021-06-15 07:29] VITALS: BP 100/69; PULSE 53; RESP 14; TEMP 37.7; O2SAT 96
[2021-06-15] MEDS: Lactated Ringers 1,000 ML 30 ML IV (08:06)
[2021-06-15 08:30] VITALS: BMI 22.6
--- NOTE | 2021-06-15 08:37 | W.PM.OP ---
Date of service: 06/15/21 Time of Service: 09:00 Operative Note Operative Note Bronchoscopy Date:06/15/21 Time:09 Indication:Chronic Cough Procedure performed: Flexible bronchoscopy Sedation plan: Conscious sedation with anesthesia Medications used: Refer to anesthesia documentation Informed consent was obtained after the risks and benefits or the procedure were discussed. The patients mouth and oropharynx was anesthesized by gurgling 2% viscous lidocaine and with lidocaine atomizer prior to the case. A proper and complete OR compliant time out was performed. The therapeutic 6.2mm Olympus bronchoscope was inserted through a bite block in the mouth and the vocal cords were visualized. The vocal cords were normal in appearance and normal function.2cc of 2% topical lidocaine was used to anesthetize the vocal cords. The bronchoscope was inserted into the airways, were 3cc in total of 1% topical lidocaine was used the anesthetize the airways. The trachea was midline and without lesion or injury, although there was evidence of erythema and irritation likely due to the patients chronic coughing. The mucosa appeared normal and there were no signs of tracheomalacia. The cooper was sharp. All bronchial subsegments were visualized within each lobe and showed patent airways without any sign of secretion or mucus present. Bronchial washings were performed with normal saline. The bronchoscope was then removed and the case terminated. The patient was taken to [facility] in stable condition. Samples collected:bronchial washings Testing ordered:cell differential, bacterial, fungal and AFB fluid cultures Complications:None Jamila Russell MD Pulmonary & Critical Care Medicine
--- NOTE | 2021-06-15 08:38 | HPE_ITS ---
Date of service: 06/15/21 Time of Service: 08:38 Assessment and Plan Assessment and plan (1) Throat pain in adult: Status: Acute (2) Chronic sphenoidal sinusitis: Status: Acute (3) Chronic cough: Status: Acute Assessment and plan: This is a 60-year-old man who was previously seen pulmonology at [facility] for chronic cough. He has a normal chest CT and chest x-rays. He had normal basic spirometry with a DLCO completed. The only significant finding thus far is a very small tracheal diverticulum that is likely not contributing to his chronic cough. He has not had bronchoscopy or methacholine challenge test. He does have issues with sinusitis and allergic rhinitis with a positive skin prick test and follows with ENT. He takes intranasal cromolyn for this issue. Typically, chronic cough syndromes are multifactorial and I am sure that his sinus issues are contributing to this. That being said we should fully rule out a pulmonary pathology. Another differential for his chronic cough could be a neurogenic process. He has not been tried on gabapentin which could improve cough that is found to be ne urogenic in nature. Chronic cough - bronchoscopy today with washing to send for culture - f/u as outpatient History of Present Illness Narrative: This is a 60-year-old male who was referred to pulmonary clinic for chronic pulmonary concerns from the emergency department. It appears as though he has been seen by [facility] pulmonology as recently as March 05, 2021 with a primary diagnosis of chronic cough. Based on their evaluation it would also as though his cough is related to upper airway cough syndrome with reassuring imaging and pulmonary function testing. Based on their last note it seems as though he was discharged from pulmonary clinic as they did not feel as though a pulmonary process was the cause of his cough. He has a history of an aspergillus mass and after treatment of this he was having issues with post nasal drip. He has a history of allergic rhinitis, esophageal dysmotility, sinusitis status post endoscopic sinus surgery 28 December 2020 and has been following with ENT at [facility]. He has a positive skin prick test to cat, grass, weed pollen and molds. He has chest congestion - coughing up mucus - thick and white, rubbery, hard to cough out. He manually pulls out secretions with his hand. He present today for flexible bronchoscopy. Review of Systems All systems reviewed & are unremarkable except as noted in HPI and below PFSH Active Problem List (Updated 06/15/21 @ 08:10 by Heather Lanier) Throat pain in adult (Acute) Dyspnea (Acute) Multiple complaints (Acute) Urethral stricture (Acute) Atonic bladder (Chronic) Chronic sphenoidal sinusitis (Acute) Nasal obstruction (Acute) Syncope (Chronic) Allergic rhinitis (Acute) Esophageal dysmotility (Acute) Sinusitis (Acute) Chronic cough (Acute) Chest pain (Acute) Tear of medial meniscus of left knee, current (Acute) Peripheral neuropathy (Acute) Scalp tenderness (Acute) History of atypical nevus (Acute) Left medial knee pain (Acute) Tinea corporis (Acute) Medical History (Updated 06/15/21 @ 08:10 by Heather Lanier) Family history of prostate cancer Grandfather and uncles History of postoperative nausea and vomiting patient states nausea/vomiting from surgery 2013 with fentanyl used in part History of urethral stricture surgery 2013 Urethral stricture Urethral stricture in male Social History Smoking/Tobacco Use Status: Never Smoking risk assessment performed?: Yes Alcohol Intake: current Alcohol Intake frequency: a few times a month Alcohol type: beer Drug use: Socially Substance use type: marijuana Details: Pt reports using 2 days ago. Reports several times of week smoking. Adopted: No Caregiver/Support person: No Foster care: No Housing: apartment Number of Children: 0 number of grandchildren: 0 Communication Needs: None Education Level: high school Do you need help understanding health information?: Rarely Pets and animals: No Sexually active: No Current gender identity: male What is your relationship status?: refused to answer How often do you talk on the phone with friends or family?: three or more times per week Do you belong to any clubs or organized social groups?: no Panel score (0-1 are the most socially isolated patients): 1 What type of physical activity do you participate in: walking, weight lifting and yoga Duration: 45-60 minutes/day Frequency: daily Carmela/Presybeterian: None Special carmela needs: No Seatbelt use: always Drive intox or ride w/intox transit mixer driver: No Do you feel safe at home: Yes Do you feel safe in your relationship?: Yes Meds Allergies and Home Medications Allergies Allergy/AdvReac Type Severity Reaction Status Date / Time egg Allergy Severe egg-based Verified 06/15/21 07:25 vaccines required epi injection fentanyl Allergy Severe Verified 06/15/21 07:25 sulfamethoxazole Allergy Severe Skin Rash Verified 06/15/21 07:25 [From Bactrim] trimethoprim [From Bactrim] Allergy Severe Skin Rash Verified 06/15/21 07:25 Penicillins Allergy Anaphylaxis Verified 06/15/21 07:25 prednisone AdvReac Severe Verified 06/15/21 07:25 Sulfa (Sulfonamide AdvReac Severe States it Verified 06/15/21 07:25 Antibiotics) made him numb on the right side which made him col levofloxacin AdvReac Intermediate Neuropathy Verified 06/15/21 07:25 Home Medications Medication Instructions Recorded Confirmed Type Cranactin 2 cap PO DAILY 03/18/21 06/15/21 History Graefruit Seed Extract 10 drp PO DAILY 03/18/21 06/15/21 History L.acid-L.rham-B.breve-S.therm 2 tab PO DAILY 03/18/21 06/15/21 History coenzyme Q10 [Co Q-10] 200 mg PO DAILY 03/18/21 06/15/21 History multivitamin 1 tab PO DAILY 03/18/21 06/15/21 History cromolyn 5.2 mg/spray (4 %) nasal 1 spray INTRANASAL ONCE 03/28/21 06/15/21 History spray magnesium 200 mg PO DAILY 03/28/21 06/15/21 History meclizine 25 mg tablet 25 mg PO DAILY PRN #30 tab 05/31/21 06/13/21 Rx clotrimazole 1 % topical cream 1 applic TOPICAL BID #45 g 06/07/21 06/13/21 Rx Exam Const General: no acute distress Nutritional Appearance: well nourished [facility] Head: normocephalic Ears: external ears normal and no periauricular adenopathy General nose exam: nasal mucous membranes and turbinates normal Face and sinus: sinuses nontender Mouth: oropharynx normal and moist mucous membranes Teeth and gingiva: dentition normal Eyes General: appearance normal, both eyes and all related structures Pupils: PERRL Neck Neck: normal visual inspection and no lymphadenopathy Chest Chest: normal inspection of the chest Resp Effort & Inspection: normal respiratory effort Auscultation: clear to auscultation bilaterally, no rales, no rhonchi and no wheezes Cardio Rate: regular rate Rhythm: regular rhythm Heart Sounds: S1 normal, S2 normal and no murmurs Pulses: radial pulses present bilaterally GI Inspection: normal to inspection Palpation: soft Skin General skin exam: no rashes or lesions noted Neuro General: patient alert, patient awake and patient oriented x3 Extrem General: no clubbing, cyanosis or edema Psych Mental Status: mental status grossly normal Affect: normal affect Attitude: cooperative Results Last Vital Signs Temp 37.7 C H 06/15/21 07:29 Pulse 53 L 06/15/21 07:29 Resp 14 06/15/21 07:29 BP 100/69 06/15/21 07:29 Pulse Ox 96 06/15/21 07:29
[2021-06-15] MEDS: Lidocaine 2% Viscous 15 ML CUP (08:50)
[2021-06-15] MEDS: Lidocaine 1% Multi-Dose 50 ML VIAL (09:01)
[2021-06-15] MEDS: Lidocaine 2% Multi-Dose 50 ML VIAL (09:01)
[2021-06-15 09:18] VITALS: BP 107/63; PULSE 67; RESP 22; TEMP 37; O2SAT 96
[2021-06-15 09:40] VITALS: BP 94/71; PULSE 52; RESP 18; TEMP 37.3; O2SAT 98
--- NOTE | 2021-06-15 10:37 | W.ANESPOSTOP ---
Postoperative Evaluation Date, Time and Location Date Performed: 06/15/21 Time Performed: 10:37 Patient Location: Day Surgery Unit Vital Signs Most Recent Imported Vital Signs: Most Recent Vital Signs Temp Pulse Resp BP Pulse Ox 37.3 C 52 L 18 94/71 L 98 06/15/21 09:40 06/15/21 09:40 06/15/21 09:40 06/15/21 09:40 06/15/21 09:40 Pain Score Most Recent Pain Score: Most Recent Pain Score Pain Level 0 06/15/21 09:40 Assessment Mental Status: Awake (Alert & Oriented to Patient Baseline) Airway and Respiratory Function: Patent airway with normal (patient baseline) respiratory exam Cardiovascular Function: Hemodynamically Stable Hydration Status: Adequately Hydrated Nausea & Vomiting: No Nausea or Vomiting Pain: Pt. Denies Any Pain Peripheral Nerve Block: Patient did not receive a nerve block
[2021-06-15 10:42] LABS: Mononuclear Cells 98 %
[2021-06-15 10:43] LABS: Polynuclear Cells 2 %
[2021-07-13 12:53] LABS: Fungus Smear No Fungi Seen
== END 2021-06-15 10:40 | disposition home or self-care (01) ==
LOC: SUR 07:02
PROVIDERS: PCP Family Medicine; Visit Provider Student in an Organized Health Care Education/Training Program
PROC: 0BJ08ZZ Inspection of Tracheobronchial Tree, Via Natural or Artificial Opening Endoscopic (ICD-10-PCS; CPT 31622; principal; 2021-06-15 08:30)
DX: R07.0 Pain in throat (principal); J32.3 Chronic sphenoidal sinusitis; R05.3 Chronic cough
CPT/HCPCS: 31622; 87102; 87116; 87206; 89051; J2250

== ENCOUNTER 2021-06-19 06:06 | Emergency (ER) | payer MEDICARE, MEDICAID, SELFPAY ==
[2021-06-19 06:16] VITALS: BP 153/87; PULSE 59; RESP 20; TEMP 36.9; O2SAT 99
--- NOTE | 2021-06-19 06:44 | ED.GENADUL_ITS ---
Discharge Plan Disposition Patient Disposition: HOME Condition: Improving Discharge Details Chief Complaint: RespSymp Clinical Impression: Multiple complaints Primary Care Provider: Dustin Garcia ED Provider: Alexandre Lake Home Meds and New Rx's Prescriptions: Continued meclizine 25 mg tablet 25 mg PO DAILY PRN (Reason: motion sickness/vertigo) Qty: 30 RF: 0 clotrimazole 1 % cream 1 applic topical BID Qty: 45 RF: 0 magnesium 200 mg PO DAILY RF: 0 cromolyn 5.2 mg/spray (4 %) spray,non-aerosol 1 spray intranasal ONCE RF: 0 multivitamin Tablet 1 tab PO DAILY RF: 0 coenzyme Q10 [Co Q-10] 200 mg Capsule 200 mg PO DAILY RF: 0 L.acid-L.rham-B.breve-S.therm 3 billion cell Tablet,Chewable 2 tab PO DAILY RF: 0 Cranactin 2 cap PO DAILY RF: 0 Graefruit Seed Extract 10 drp PO DAILY RF: 0 Discharge Instructions Additional Instructions: You underwent CT imaging of the head and sinuses today The fungal cultures and fungal smear from June 15 bronchoscopy are still pending. Home to rest today. Please follow-up with for recheck, Dr Rendon as planned, and Dr Navarro at [facility] as planned. Medical Decision Making 61-year-old male presents from home this morning complaining of concern for sinus infection. He has recently had consultations with pulmonology including bronchoscopy with bronchial washings which was performed on June 15. Patient followed up with pulmonology over the phone yesterday. He states that he has seen ENT at [facility] and had a left sinus mass excised and now has self referred to ENT in [facility] which is pending. He admits to some longstanding anxieties. Today the patient's exam is reassuring, he does seem somewhat tangential in his thoughts at times. We discussed work-up for sinus infection including imaging which was performed. No evidence of acute sinus or intracranial findings. See formal report. Discussed with patient that he must refer any question of mold in his home to his landlord. He will follow-up with ENT, pulmonology as planned. HPI General Mode of arrival: ambulatory . Date/Time Provider Initiated Documentation: 06/19/21 06:15 . Limitations to Documentation: no limitations . Information obtained by: patient . History of Present Illness 61 year old M presents to the emergency department with the chief complaint of Postnasal drip, described as moderate, and is localized to the head. Patient reports no radiation. Patient started experiencing this hour(s) and it has been constant. No relieving factors improve symptom(s), No exacerbating factors reported . Patient notes denies fever/chills. Patient did receive the following treatments prior to arrival, other (Sinus rinse) Related Data Home Medications Medication Instructions Recorded Confirmed Cranactin 2 cap PO DAILY 03/18/21 06/19/21 Graefruit Seed Extract 10 drp PO DAILY 03/18/21 06/19/21 L.acid-L.rham-B.breve-S.therm 2 tab PO DAILY 03/18/21 06/19/21 coenzyme Q10 [Co Q-10] 200 mg PO DAILY 03/18/21 06/19/21 multivitamin 1 tab PO DAILY 03/18/21 06/19/21 cromolyn 5.2 mg/spray (4 %) nasal 1 spray INTRANASAL ONCE 03/28/21 06/19/21 spray magnesium 200 mg PO DAILY 03/28/21 06/19/21 meclizine 25 mg tablet 25 mg PO DAILY PRN #30 tab 05/31/21 06/19/21 clotrimazole 1 % topical cream 1 applic TOPICAL BID #45 g 06/07/21 06/19/21 Previous Rx's Medication Instructions Recorded meclizine 25 mg tablet 25 mg PO DAILY PRN #30 tab 05/31/21 clotrimazole 1 % topical cream 1 applic TOPICAL BID #45 g 06/07/21 Allergies Allergy/AdvReac Type Severity Reaction Status Date / Time egg Allergy Severe egg-based Verified 06/18/21 12:37 vaccines required epi injection fentanyl Allergy Severe Verified 06/18/21 12:37 sulfamethoxazole Allergy Severe Skin Rash Verified 06/18/21 12:37 [From Bactrim] trimethoprim [From Bactrim] Allergy Severe Skin Rash Verified 06/18/21 12:37 Penicillins Allergy Anaphylaxis Verified 06/18/21 12:37 prednisone AdvReac Severe Verified 06/18/21 12:37 Sulfa (Sulfonamide AdvReac Severe States it Verified 06/18/21 12:37 Antibiotics) made him numb on the right side which made him col levofloxacin AdvReac Intermediate Neuropathy Verified 06/18/21 12:37 General Stated Complaint: RespSymp ARIANA: 3 Review of Systems Narrative: Patient has numerous chronic complaints including intermittent paresthesias, intermittent weakness, post nasal drip, persistent cough, mucus secretions. 6 systems reviewed and otherwise negative [facility] Active Problem List Throat pain in adult (Acute) Dyspnea (Acute) Multiple complaints (Acute) Urethral stricture (Acute) Atonic bladder (Chronic) Chronic sphenoidal sinusitis (Acute) Nasal obstruction (Acute) Syncope (Chronic) Allergic rhinitis (Acute) Esophageal dysmotility (Acute) Sinusitis (Acute) Chronic cough (Acute) Chest pain (Acute) Tear of medial meniscus of left knee, current (Acute) Peripheral neuropathy (Acute) Scalp tenderness (Acute) History of atypical nevus (Acute) Left medial knee pain (Acute) Tinea corporis (Acute) Medical History Family history of prostate cancer Grandfather and uncles History of postoperative nausea and vomiting patient states nausea/vomiting from surgery 2013 with fentanyl used in part History of urethral stricture surgery 2013 Urethral stricture Urethral stricture in male Social History Smoking/Tobacco Use Status: Never Smoking risk assessment performed?: Yes Alcohol Intake: current Alcohol Intake frequency: a few times a month Alcohol type: beer Drug use: Socially Substance use type: marijuana Details: Pt reports using 2 days ago. Reports several times of week smoking. Adopted: No Caregiver/Support person: No Foster care: No Housing: apartment Number of Children: 0 number of grandchildren: 0 Communication Needs: None Education Level: high school Do you need help understanding health information?: Rarely Pets and animals: No Sexually active: No Current gender identity: male What is your relationship status?: refused to answer How often do you talk on the phone with friends or family?: three or more times per week Do you belong to any clubs or organized social groups?: no Panel score (0-1 are the most socially isolated patients): 1 What type of physical activity do you participate in: walking, weight lifting and yoga Duration: 45-60 minutes/day Frequency: daily Carmela/Temple: None Special carmela needs: No Seatbelt use: always Drive intox or ride w/intox transit bus driver: No Do you feel safe at home: Yes Do you feel safe in your relationship?: Yes Exam Narrative Exam Narrative: GEN: awake, alert, oriented 3. Pleasant, well groomed, interactive. HEAD: Normocephalic, atraumatic, left frontal sinus tenderness ENT: Mucous membranes moist, oropharynx unremarkable, tympanic membranes clear bilaterally, external ear exam unremarkable EYES: PERRL, EOMI NECK: Full ROM, no PRISCILLA, no menigismus CHEST/RESP: Nontender, clear to auscultation bilateral, no wheeze/rhonchi/rales CARDIOVASCULAR: RRR, no murmur, rub claudio. 2+ Rad pulse bilateral ABDOMEN: Soft, nontender, no mass. +Bowel sounds EXT: Full ROM, no edema, no rash Neuro: Grossly normal neurologic exam, conversant, interactive. Psych: Speech fluent,affect anxious Course Vital Signs Vital signs: Vital Signs Temperature 36.9 C 06/19/21 06:16 Pulse 59 L 06/19/21 06:16 Respiratory Rate 20 06/19/21 06:16 Blood Pressure 153/87 H 06/19/21 06:16 Pulse Oximetry 99 06/19/21 06:16 Temperature 36.9 C 06/19/21 06:16 Temperature Source Temporal Artery Scan 06/19/21 06:16 Pulse 59 L 06/19/21 06:16 Respiratory Rate 20 06/19/21 06:16 Respiratory Effort Non-Labored 06/19/21 06:19 Respiratory Depth Normal 06/19/21 06:19 Blood Pressure 153/87 H 06/19/21 06:16 Blood Pressure Position Sitting 06/19/21 06:16 Pulse Oximetry 99 06/19/21 06:16 Oxygen Delivery Method Room Air 06/19/21 06:16 Oxygen Flow Rate 0 06/19/21 06:16 Pain Level 6 06/19/21 06:16
--- NOTE | 2021-06-19 07:17 | DI.CT_ITS ---
Exam(s) CT HEAD SINUS WO EXAM: CT HEAD SINUS WO CLINICAL HISTORY: L sinus surgery. Now pressure, post nasal drip. TECHNIQUE: Imaging Protocol: Axial computed tomography images with coronal and sagittal reformatted images were created and reviewed COMPARISON: No exams were available for comparison FINDINGS: Noncontrast cranial CT and noncontrast sinus CT are interpreted in conjunction.The ventricular system is normal in appearance. No evidence of acute intracranial hemorrhage, mass effect, or midline shift. The orbital structures are unremarkable. The temporal bone structures appear intact. Calvarium: Normal. Visualized Paranasal sinuses/Mastoids: Clear. There is no evidence of orbital facial trauma. IMPRESSION: Normal cranial CT. Normal sinus CT. RADIATION DOSE DELIVERED: 860.92mGy.cm Total DLP 860.92mGy.cm Total DLP CTDIvol DATA REPOSITORY: All CT scans at this facility are submitted to the National Radiology Data Registry (NRDR) Dose Index Registry (DIR) with the [employer] (A[employer]). RADIATION OPTIMIZATION: All CT scans at this facility use at least one of these dose optimization te chniques: automated exposure control; mA and/or kV adjustment per patient size (includes targeted exa ms where dose is matched to clinical indication); or iterative reconstruction.
== END 2021-06-19 07:51 | disposition home or self-care (01) ==
PROVIDERS: Emergency Provider Emergency Medicine; PCP Family Medicine
DX: R09.89 Other specified symptoms and signs involving the circulatory and respiratory systems (principal); J34.89 Other specified disorders of nose and nasal sinuses
CPT/HCPCS: 99284; 70450; 70486; 99283

== ENCOUNTER 2021-06-20 01:41 | Outpatient (CLI) | payer MEDICARE, MEDICAID, SELFPAY ==
--- NOTE | 2021-06-20 14:10 | DI.MRI_ITS ---
Exam(s) MR LOWER JOINT LT WO EXAM: MR LOWER JOINT LT WO CLINICAL HISTORY: R/O medial meniscal tear, lt medial knee pain, m25.562 TECHNIQUE: Multiplanar multisequence MRI was performed.. COMPARISON: No exams were available for comparison FINDINGS: MR examination of the knee was performed according to the usual protocol. There is no significant knee joint effusion. No significant bony signal abnormality seen. Medial tibiofemoral joint: The articular cartilage of the femur and tibia appears well maintained. T he meniscus and attachments appear intact. The medial collateral ligament appears intact. No potato chip cooker machine omedial corner injury seen. Lateral tibiofemoral joint: The articular cartilage of the femur and tibia appears well maintained. The meniscus and attachments appear intact. The lateral collateral ligament complex and posterolater al corner structures appear intact. Patellofemoral joint and extensor mechanism: The articular cartilage of the patellofemoral joint appe ars intact. The superior and inferior patellar fat pads appear normal with no signal abnormality. The quadriceps tendon and patellar tendon appear intact with no evidence of a tear or significant liliane ma. The medial and lateral retinacula appear intact. Cruciate ligaments: Cruciate ligaments and attachments appear normal with no evidence of a tear. Tibiofibular joint: No specific abnormality involving the tibiofibular joint. Other: There is abnormal signal associated with the medial gastrocnemius insertion on the femur are, this probably represents a partial thickness attachment tear. There is no evidence of retraction. N o other abnormality seen. IMPRESSION: Partial-thickness tear medial gastrocnemius attachment the femur. No other significant findings. DATA REPOSITORY:
== END 2021-06-20 02:01 ==
PROVIDERS: PCP Family Medicine; Visit Provider Family Medicine
DX: M25.562 Pain in left knee (principal); T14.8XXA Other injury of unspecified body region, initial encounter
CPT/HCPCS: 73721

== ENCOUNTER 2021-06-20 02:23 | Outpatient (CLI) | payer MEDICARE, MEDICAID, SELFPAY ==
[2021-06-22 10:06] LABS: Lyme Ab w Rflx to Lyme Confirm Negative (Negative)
[2021-06-22 18:53] LABS: Anaplasma phagocytophilum Negative (Negative); B. miyamotoi PCR Negative (Negative); Babesia divergens/MO-1 Negative (Negative); Babesia duncani Negative (Negative); Babesia microti Negative (Negative); Ehrlichia chaffeensis Negative (Negative); Ehrlichia ewingii/canis Negative (Negative); Ehrlichia muris eauclairensis Negative (Negative)
== END 2021-06-20 02:24 | disposition home or self-care (01) ==
LOC: LBO 02:23
PROVIDERS: PCP Family Medicine; Visit Provider Family Medicine
DX: R21 Rash and other nonspecific skin eruption (principal)
CPT/HCPCS: 36415; 73721; 87798; 86618

== ENCOUNTER 2021-07-02 02:58 | Outpatient (CLI) | payer MEDICARE, MEDICAID, SELFPAY ==
[2021-07-02 13:04] LABS: Source Nasal/Nares
[2021-07-02 17:11] LABS: COVID-19 PCR Negative (Negative)
== END 2021-07-02 02:59 | disposition home or self-care (01) ==
LOC: LBO 02:59
PROVIDERS: PCP Family Medicine; Visit Provider Otolaryngology
DX: Z01.812 Encounter for preprocedural laboratory examination (principal)
CPT/HCPCS: 87635

== ENCOUNTER 2021-07-06 18:51 | Outpatient (REF) | payer MEDICARE, MEDICAID, SELFPAY ==
[2021-07-08 11:52] LABS: COVID-19 RT-PCR UVMMC Result Negative (Negative)
== END 2021-07-06 18:52 | disposition home or self-care (01) ==
LOC: LBN 18:51
PROVIDERS: PCP Family Medicine; Visit Provider Nurse Practitioner Family
DX: Z20.822 Contact with and (suspected) exposure to COVID-19 (principal)
CPT/HCPCS: U0003

== ENCOUNTER 2021-07-12 07:51 | Emergency (ER) | payer MEDICARE, MEDICAID, SELFPAY ==
[2021-07-12 08:16] VITALS: BP 102/61; PULSE 59; RESP 16; TEMP 36.9; O2SAT 98
--- NOTE | 2021-07-12 08:30 | DI.CT_ITS ---
Exam(s) CT HEAD WO EXAM: CT HEAD WO CLINICAL HISTORY: head trauma, pain. TECHNIQUE: Imaging Protocol: Axial computed tomography images with coronal and sagittal reformatted images were created and reviewed COMPARISON: CT CT HEAD SINUS WO from 06/19/2021 FINDINGS: Images are degraded by motion artifact. There are no obvious skull fractures nor fluid in the visualized paranasal sinuses. There is no evidence of intracranial hemorrhage, mass effect, or shift of midline structures. There are no extra-axial fluid collections. The ventricles are not enlarged or shifted and there is no blo od within the ventricular system nor within the basal cisterns. IMPRESSION: No acute intracranial findings on this noninfused CT scan of the brain. Images somewhat degraded by motion artifact. RADIATION DOSE DELIVERED: 757.51mGy.cm Total DLP DATA REPOSITORY: All CT scans at this facility are submitted to the National Radiology Data Registry (NRDR) Dose Index Registry (DIR) with the [employer] (ACR). RADIATION OPTIMIZATION: All CT scans at this facility use at least one of these dose optimization te chniques: automated exposure control; mA and/or kV adjustment per patient size (includes targeted exa ms where dose is matched to clinical indication); or iterative reconstruction.
--- NOTE | 2021-07-12 08:35 | ED.GENADUL_ITS ---
Discharge Plan Disposition Patient Disposition: HOME Condition: Stable Discharge Details Clinical Impression: Blunt head trauma Primary Care Provider: Dustin Garcia ED Provider: Jordan Martinez Home Meds and New Rx's Prescriptions: Continued meclizine 25 mg tablet 25 mg PO DAILY PRN (Reason: motion sickness/vertigo) Qty: 30 RF: 0 clotrimazole 1 % cream 1 applic topical BID Qty: 45 RF: 0 magnesium 200 mg PO DAILY RF: 0 cromolyn 5.2 mg/spray (4 %) spray,non-aerosol 1 spray intranasal ONCE RF: 0 multivitamin Tablet 1 tab PO DAILY RF: 0 coenzyme Q10 [Co Q-10] 200 mg Capsule 200 mg PO DAILY RF: 0 L.acid-L.rham-B.breve-S.therm 3 billion cell Tablet,Chewable 2 tab PO DAILY RF: 0 Cranactin 2 cap PO DAILY RF: 0 Graefruit Seed Extract 10 drp PO DAILY RF: 0 Discharge Instructions Additional Instructions: the cat scan did not show any concerning traumatic injuries follow up with your ENT and primary care provider if you feel more ill, have severe worsening pain or persistent vomit return to the emergency department Medical Decision Making 61 yo male with hx of prior sinus mass per patient, who comes in with complaint that he fell and hit his superior head on the corner of a table 2 days ago and has had increased pain since. Denies loc, no chest pain or dyspnea. He has a chronic cough for which he has had 14 negative covid tests since last September per patient. He has a 2cm healing abrasion on the superior scalp. EOMI, perrl, normal tm's bilaterally, normal external auditory canals bilaterally. Normal gait, no focal motor or sensation deficits. Suspect mild tbi but given increased pain will obtain ct head to evaluate for traumatic injury ct head unremarkable for traumatic findings, he remains stable. He has been having sinus pressure and congestion for a week, no findings of significant sinusitis on ct but offered antibiotics which he declined. He has an ent he will follow up with, return precautions given Differential Diagnosis Differential Diagnosis: sdh, concussion, chronic sinusitis Imaging Data Radiologic Study: Attestation: I personally reviewed and interpreted this imaging study as follows: Imaging: CT Scan Radiologist's impression: MPRESSION: No acute intracranial findings on this noninfused CT scan of the brain. HPI General Mode of arrival: ambulatory . Date/Time Provider Initiated Documentation: 07/12/21 08:03 . Limitations to Documentation: no limitations . Information obtained by: patient . History of Present Illness 61 year old M presents to the emergency department with the chief complaint of head trauma, described as moderate, Patient started experiencing this day(s) (2) and it has been constant. No relieving factors improve symptom(s), No exacerbating factors reported . Patient did receive the following treatments prior to arrival, none Related Data Home Medications Medication Instructions Recorded Confirmed Cranactin 2 cap PO DAILY 03/18/21 07/02/21 Graefruit Seed Extract 10 drp PO DAILY 03/18/21 07/12/21 L.acid-L.rham-B.breve-S.therm 2 tab PO DAILY 03/18/21 07/12/21 coenzyme Q10 [Co Q-10] 200 mg PO DAILY 03/18/21 07/12/21 multivitamin 1 tab PO DAILY 03/18/21 07/12/21 cromolyn 5.2 mg/spray (4 %) nasal 1 spray INTRANASAL ONCE 03/28/21 07/12/21 spray magnesium 200 mg PO DAILY 03/28/21 07/02/21 meclizine 25 mg tablet 25 mg PO DAILY PRN #30 tab 05/31/21 07/12/21 clotrimazole 1 % topical cream 1 applic TOPICAL BID #45 g 06/07/21 07/12/21 Previous Rx's Medication Instructions Recorded meclizine 25 mg tablet 25 mg PO DAILY PRN #30 tab 05/31/21 clotrimazole 1 % topical cream 1 applic TOPICAL BID #45 g 06/07/21 Allergies Allergy/AdvReac Type Severity Reaction Status Date / Time egg Allergy Severe egg-based Verified 07/12/21 08:20 vaccines required epi injection fentanyl Allergy Severe Verified 07/12/21 08:20 sulfamethoxazole Allergy Severe Skin Rash Verified 07/12/21 08:20 [From Bactrim] trimethoprim [From Bactrim] Allergy Severe Skin Rash Verified 07/12/21 08:20 Penicillins Allergy Anaphylaxis Verified 07/12/21 08:20 prednisone AdvReac Severe Verified 07/12/21 08:20 Sulfa (Sulfonamide AdvReac Severe States it Verified 07/12/21 08:20 Antibiotics) made him numb on the right side which made him col levofloxacin AdvReac Intermediate Neuropathy Verified 07/12/21 08:20 General Stated Complaint: HeadInjury ARIANA: 4 Review of Systems All systems reviewed & are unremarkable except as noted in HPI and below Constitutional Constitutional: Denies chills and Denies fever(s) Cardiovascular Cardiovascular: Denies chest pain and Denies dyspnea Respiratory Respiratory: Denies dyspnea Gastrointestinal Gastrointestinal: Denies abdominal pain, Denies nausea and Denies vomiting Musculoskeletal Musculoskeletal: Denies joint swelling PFSH All Active Problems (Updated 07/12/21 @ 09:26 by Jordan Martinez MD) Blunt head trauma (Acute) Gastrocnemius tendon tear (Acute) Throat pain in adult (Acute) Dyspnea (Acute) Multiple complaints (Acute) Urethral stricture (Acute) Atonic bladder (Chronic) Chronic sphenoidal sinusitis (Acute) Nasal obstruction (Acute) Syncope (Chronic) Allergic rhinitis (Acute) Esophageal dysmotility (Acute) Sinusitis (Acute) Chronic cough (Acute) Chest pain (Acute) Tear of medial meniscus of left knee, current (Acute) Peripheral neuropathy (Acute) Scalp tenderness (Acute) History of atypical nevus (Acute) Left medial knee pain (Acute) Tinea corporis (Acute) Medical History Family history of prostate cancer Grandfather and uncles History of postoperative nausea and vomiting patient states nausea/vomiting from surgery 2013 with fentanyl used in part History of urethral stricture surgery 2013 Urethral stricture Urethral stricture in male Social History Smoking/Tobacco Use Status: Never Smoking risk assessment performed?: Yes Alcohol Intake: current Alcohol Intake frequency: a few times a month Alcohol type: beer Drug use: Socially Substance use type: marijuana Details: Pt reports using 2 days ago. Reports several times of week smoking. Adopted: No Caregiver/Support person: No Foster care: No Housing: apartment Number of Children: 0 number of grandchildren: 0 Communication Needs: None Education Level: high school Do you need help understanding health information?: Rarely Pets and animals: No Sexually active: No Current gender identity: male What is your relationship status?: refused to answer How often do you talk on the phone with friends or family?: three or more times per week Do you belong to any clubs or organized social groups?: no Panel score (0-1 are the most socially isolated patients): 1 What type of physical activity do you participate in: walking, weight lifting and yoga Duration: 45-60 minutes/day Frequency: daily Carmela/Confucianism: None Special carmela needs: No Seatbelt use: always Drive intox or ride w/intox national dedicated truck driver: No Do you feel safe at home: Yes Do you feel safe in your relationship?: Yes Exam Const General: no acute distress Orientation: alert HENMT Head: normal to inspection Ears: external ears normal General nose exam: external nose normal Mouth: moist mucous membranes Eyes General: appearance normal, both eyes and all related structures Neck Neck: normal visual inspection Resp Effort & Inspection: normal respiratory effort and able to speak in complete sentences Cardio Rate: regular rate Skin General skin exam: no rashes or lesions noted Neuro General: patient alert and patient oriented x3 Extrem General: normal to inspection Psych Mental Status: mental status grossly normal Course Vital Signs Vital signs: Vital Signs Temperature 36.9 C 07/12/21 08:16 Pulse 59 L 07/12/21 08:16 Respiratory Rate 16 07/12/21 08:16 Blood Pressure 102/61 07/12/21 08:16 Pulse Oximetry 98 07/12/21 08:16 Temperature 36.9 C 07/12/21 08:16 Temperature Source Skin 07/12/21 08:16 Pulse 59 L 07/12/21 08:16 Respiratory Rate 16 07/12/21 08:16 Respiratory Effort Non-Labored 07/12/21 08:31 Respiratory Depth Normal 07/12/21 08:31 Respiratory Pattern Irregular 07/12/21 08:31 Blood Pressure 102/61 07/12/21 08:16 Blood Pressure Position Sitting 07/12/21 08:16 Pulse Oximetry 98 07/12/21 08:16 Oxygen Delivery Method Room Air 07/12/21 08:16 Oxygen Flow Rate 0 07/12/21 08:16 Pain Level 5 07/12/21 08:16
== END 2021-07-12 09:55 | disposition home or self-care (01) ==
PROVIDERS: Emergency Provider Emergency Medicine; PCP Family Medicine
DX: S09.8XXA Other specified injuries of head, initial encounter (principal); S00.01XA Abrasion of scalp, initial encounter; W22.09XA Striking against other stationary object, initial encounter
CPT/HCPCS: 99284; 70450; 99283

== ENCOUNTER 2021-07-14 11:44 | Outpatient (REF) | payer MEDICARE, MEDICAID, SELFPAY ==
[2021-07-14 17:54] LABS: Abs Immature Grans 0.02 10^3/uL (0.0-0.06); Absolute Basophil Count 0.05 10^3/uL (0.0-0.2); Absolute Eosinophil Count 0.11 10^3/uL (0.0-0.7); Absolute Lymphocyte Count 1.51 10^3/uL (1.2-3.4); Absolute Monocyte Count 0.47 10^3/uL (0.1-0.8); Basophils % 0.7; Eosinophils % 1.5; HCT 49.6 % (40.0-50.0); HGB 16.6 g/dL (13.5-17.5); Immature Grans % 0.3; Lymphocytes % 20.8; MCH 31.5 pg (27.0-33.0); MCHC 33.5 % (32.0-36.0); MCV 94.1 fL (80-95); MPV 9.4 fL (8.0-11.0); Monocytes % 6.5; Neutrophils % 70.2; Nucleated RBC 0 %; Platelet Count 325 10^3/uL (130-400); RBC 5.27 10^6/uL (4.36-5.78); RDW 12.7 % (11.8-14.1); RDW-SD 43.8 fL; WBC 7.26 10^3/uL (4.4-10.8)
[2021-07-14 17:55] LABS: AST 29 U/L (15-37); Albumin 4.2 g/dL (3.4-5.0); Alkaline Phosphatase 60 U/L (46-116); Anion Gap 7.4 mmol/L (3-11); BUN 15 mg/dL (7-18); Bilirubin, Total 1.2 mg/dL (0.2-1.0); CO2 29.6 mmol/L (21.0-32.0); CREATININE 0.8 mg/dL (0.70-1.30); Calcium 8.6 mg/dL (8.5-10.1); Chloride 104 mmol/L (98-107); Glucose 94 mg/dL (74-106); Potassium 4.3 mmol/L (3.5-5.1); Sodium 141 mmol/L (136-145)
[2021-07-14 17:56] LABS: ALT 31 U/L (16-63); C-Reactive Protein 0.05 mg/dL (0.0-0.3); ESR < 1 mm/hr (0-20)
== END 2021-07-14 11:45 | disposition home or self-care (01) ==
LOC: NCHCN 11:44
PROVIDERS: PCP Family Medicine; Visit Provider Physician Assistant Medical
DX: Z13.9 Encounter for screening, unspecified (principal)
CPT/HCPCS: 80053; 85652; 85025; 86140

== ENCOUNTER 2021-07-19 03:14 | Outpatient (CLI) | payer MEDICARE, MEDICAID, SELFPAY | END 2021-07-19 03:15 | disposition home or self-care (01) | LOC: LBO 03:14 | PROVIDERS: PCP Family Medicine; Visit Provider Nurse Practitioner Family | DX: S86.112A Strain of other muscle(s) and tendon(s) of posterior muscle group at lower leg level, left leg, initial encounter (principal); X50.9XXA Other and unspecified overexertion or strenuous movements or postures, initial encounter | CPT/HCPCS: 99213 ==

== ENCOUNTER 2021-07-23 02:29 | Outpatient (CLI) | payer MEDICARE, MEDICAID, SELFPAY ==
--- NOTE | 2021-07-23 10:45 | DI.MRI_ITS ---
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 Both noninfused and contrast i nfused sequences were performed. IV Contrast injected was [address] HEAD SINUS WO from 06/19/[address] HEAD SINUS WO from 06/19/[address] HEAD WO from 07/12/2021 FINDINGS: CEREBRAL PARENCHYMA: No evidence of intracranial hemorrhage, mass effect nor shift of midline structu re. No extraaxial fluid collections. Ventricles are not enlarged nor shifted. There is no significant focal signal abnormality in the cerebellar hemispheres nor within the ranjeet, m idbrain, and thalami. There is no abnormal signal abnormality in the periventricular white matter. There are no ring enhancing lesions in the brain. There is no abnormal meningeal enhancement. DWI: No signal abnormality to suggest restricted diffusion SWI: No evidence of microhemorrhages PITUITARY GLAND: No mass nor parasellar abnormality. No obvious abnormality in the cavernous sinuses. FLOW VOIDS: The expected flow void are noted. No evidence of obvious aneurysm nor obvious vascular ma lformation. PARANASAL SINUSES: The visualized paranasal sinuses appear unremarkable. No significant focal finding s in the sphenoid sinuses, given the apparent history here ORBITS: No obvious abnormal findings. IMPRESSION: 1. No significant intracranial findings on this MRI scan of the brain. 2. No abnormal enhancing intracranial finding. 3. There are no significant findings in the paranasal sinuses, including the sphenoid sinuses. DATA REPOSITORY:
[2021-07-23] MEDS: Gadoterate meglumine 20 ML VIAL 12 ML IVP (10:58)
[2021-07-23] MEDS: Normal Saline Flush 10 ML SYR IVP (10:58)
== END 2021-07-23 02:49 ==
PROVIDERS: PCP Family Medicine
DX: R51.9 Headache, unspecified (principal); J32.3 Chronic sphenoidal sinusitis; G89.29 Other chronic pain
CPT/HCPCS: 70553; 93225

== ENCOUNTER 2021-07-23 04:31 | Outpatient (RCR) | payer MEDICARE, MEDICAID, SELFPAY ==
--- NOTE | 2021-07-23 11:45 | HOLTER_ITS ---
APPROVED REPORT Conclusion This Holter monitor was ordered for palpitations. Analyzed duration was 10 hours 31 minutes Predominant rhythm was sinus with an average heart rate of 72. Minimum was 51, maximum 109 2 isolated PVCs were seen. There were 10 premature atrial contractions There was no atrial fibrillation, no high-grade AV block, no pauses greater than 3 seconds There were no apparent patient symptoms
== END 2021-07-27 23:59 | disposition home or self-care (01) ==
LOC: RT 04:31
PROVIDERS: PCP Family Medicine; Visit Provider Family Medicine
DX: R00.2 Palpitations (principal); I49.3 Ventricular premature depolarization; I49.1 Atrial premature depolarization
CPT/HCPCS: 93227; 93225; 93226

== ENCOUNTER 2021-08-01 19:33 | Outpatient (REF) | payer MEDICARE, MEDICAID, SELFPAY ==
[2021-08-03 16:28] LABS: COVID-19 RT-PCR UVMMC Result Negative (Negative)
== END 2021-08-01 19:34 | disposition home or self-care (01) ==
LOC: LBN 19:33
PROVIDERS: PCP Family Medicine; Visit Provider Physician Assistant
DX: Z20.822 Contact with and (suspected) exposure to COVID-19 (principal); R51.9 Headache, unspecified
CPT/HCPCS: U0003

== ENCOUNTER 2021-09-20 11:28 | Outpatient (REF) | payer MEDICARE, MEDICAID, SELFPAY | END 2021-09-20 11:29 | disposition home or self-care (01) | LOC: LBN 11:28 | PROVIDERS: PCP Family Medicine; Visit Provider Nurse Practitioner Family | DX: R09.89 Other specified symptoms and signs involving the circulatory and respiratory systems (principal) | CPT/HCPCS: 87070; 87205 ==

== ENCOUNTER 2021-10-16 00:35 | Outpatient (CLI) | payer MEDICARE, MEDICAID, SELFPAY ==
--- NOTE | 2021-10-16 09:00 | ETT_ITS ---
APPROVED REPORT Exam: Exercise Treadmill Patient Location: Out-Patient Room/Bed: Stress Nurse: Liz Mondragon RN Ordering Provider:MICK PEREZ, Contact Number: [phone] BMI: 21.78 Baseline Rhythm: Sinus Bradycardia Indications: Chest pain Medical History Medical History: Dyspnea, syncope, peripheral neuropathy Cardiac Medications: None Allergies: Fentanyl, prednisone, levofloxacin, sulfamethoxazole, penicillin Cardiac Risk Factors: Smoker (marijuana occassionally), family hx Previous Cardiac Procedures: None Pretest Chest Pain Characteristics: baseline mild SOB and congestion in chest Exercise History: Physically active Physical Disabilities: None Lung Sounds: Clear to auscultation Heart Sounds: Regular Stress Test Details Test: Exercise stress testing was performed using a Markell protocol. Rest Stress HR Resting HR Supine: 52 bpm Max Heart Rate (APMHR): 159 bpm Resting HR Standin bpm Target HR (85% APMHR): 135 bpm Max HR Achieved: 92 bpm % of APMHR: 57 Recovery HR: 58 bpm HR response to stress: Blunted HR response to stress Comment: Nondiagnositc, THR not reached BP Resting BP Supine: 110/64 mmHg Resting BP Standin/62 mmHg Max BP: 138/70 mmHg Recovery BP: 112/74 mmHg BP response to stress: Blunted blood pressure response to stress. ECG Resting ECG: Sinus Bradycardia Ectopy: None Stress ECG: Sinus Tachycardia ST Change: No significant ST segment changes noted, Nondiagnostic low heart rate Arrhythmia: None Recovery ECG: Sinus Bradycardia Recovery ST Change: No significant ST segment changes noted, Nondiagnostic low heart rate Recovery Arrhythmia: Rare PAC Clinical Reason for Termination: Dyspnea, Fatigue Stress Symptoms: General Fatigue, Chest pain, Dyspnea Exercise duration: 10 min07 sec Highest Stage Reached: Stage 4: 4.2 mph at 16% grade. Exercise capacity: 12.00 METs Gutierrez Treadmill Score: 5.7 Rate Pressure Product: [id number] Stress ECG Conclusion 1. Resting electrocardiogram was within normal limits 2. Patient exercised on the Markell protocol and completed a workload of 12 METS 3. Blunted heart rate and blood pressure response to exercise. The patient achieved only 57% of pred icted heart rate for age 4. Electrocardiographic portion of the test was nondiagnostic due to inadequate heart rate 5. No significant dysrhythmias Gutierrez Treadmill Score is 5.7 which is Low risk. Stress Test Summary STAGE Time (mins) Speed (mph) Grade (%) HR BP SYMPTOMS METS Supine 52 110/64 Standing 70 110/62 Baseline mild SOB, SpO2 98% 1 3 1.7 10 75 112/68 Mild SOB, SpO2 97% 4.6 2 6 2.5 12 79 114/64 Moderate SOB, 3/10 CP R side, SpO2 96% 7 3 9 3.4 14 85 120/64 Moderate SOB, 6/10 midsternal CP, HITCH[place]OCK 5/10, SpO2 98% 10.2 4 12 4.2 16 92 Moderate SOB, intermittent CP 5/10, SpO2 98% 12.9 1 min recovery 71 138/70 Moderate SOB, 3/10 CP, SpO2 98% 3 min recovery 58 112/72 Mild SOB, CP resolved, HITCHCOCK resolved, SpO2 98% 6 min recovery 58 112/74 SOB back to baseline mild, SpO2 98% Pt experienced moderate SOB, intermittent CP 3-6/10, and HITCHCOCK 5/10 during final stages of exercises. Sy mptoms resolved and/or returned to baseline by end of recovery period.
== END 2021-10-16 00:55 ==
PROVIDERS: PCP Family Medicine; Visit Provider Family Medicine
DX: R07.89 Other chest pain (principal)
CPT/HCPCS: 93016; 93018; 93017

== ENCOUNTER 2021-11-19 16:32 | Outpatient (REF) | payer MEDICARE, MEDICAID, SELFPAY | END 2021-11-19 16:33 | disposition home or self-care (01) | LOC: LBN 16:32 | PROVIDERS: PCP Family Medicine; Visit Provider Family Medicine | CPT/HCPCS: 87070; 87205 ==

== ENCOUNTER 2021-12-04 01:59 | Outpatient (CLI) | payer MEDICARE, MEDICAID, SELFPAY ==
[2021-12-04 14:47] LABS: Kit/Specimen SENT
[2021-12-04 14:55] LABS: Abs Immature Grans 0.02 10^3/uL (0.0-0.06); Absolute Basophil Count 0.08 10^3/uL (0.0-0.2); Absolute Eosinophil Count 0.15 10^3/uL (0.0-0.7); Absolute Lymphocyte Count 1.52 10^3/uL (1.2-3.4); Absolute Monocyte Count 0.49 10^3/uL (0.1-0.8); Absolute Neutrophil Count 4.84 10^3/uL (1.2-6.7); Basophils % 1.1; Eosinophils % 2.1; HCT 43.3 % (40.0-50.0); HGB 15.4 g/dL (13.5-17.5); Immature Grans % 0.3; Lymphocytes % 21.4; MCH 32.6 pg (27.0-33.0); MCHC 35.6 % (32.0-36.0); MCV 92 fL (80-95); MPV 9.3 fL (8.0-11.0); Monocytes % 6.9; Neutrophils % 68.2; Platelet Count 267 10^3/uL (130-400); RBC 4.72 10^6/uL (4.36-5.78); RDW 12.4 % (11.8-14.1); RDW-SD 41.7 fL
[2021-12-04 15:11] LABS: ESR < 1 mm/hr (0-20)
[2021-12-04 17:12] LABS: Iron 104 ug/dL (65-175); Total Iron Binding Capacity 283 ug/dL (250-450)
[2021-12-04 18:18] LABS: ALT 24 U/L (16-63); AST 26 U/L (15-37); Albumin 3.8 g/dL (3.4-5.0); Alkaline Phosphatase 62 U/L (46-116); Anion Gap 10.3 mmol/L (3-11); BUN 23 mg/dL (7-18); Bilirubin, Total 1.7 mg/dL (0.2-1.0); CO2 25.7 mmol/L (21.0-32.0); CREATININE 0.8 mg/dL (0.70-1.30); Calcium 8.1 mg/dL (8.5-10.1); Chloride 107 mmol/L (98-107); Ferritin 56 ng/mL (26-388); Glucose 97 mg/dL (74-106); Magnesium 2.2 mg/dL (1.8-2.4); Potassium 4.1 mmol/L (3.5-5.1); Sodium 143 mmol/L (136-145); TSH 1.76 uIU/mL (0.36-3.74); Total Protein 6.3 g/dL (6.4-8.2); Vitamin B12 308 pg/mL (193-986)
[2021-12-04 19:13] LABS: Creatine Kinase 179 U/L (39-308); FREE T4 0.87 ng/dL (0.76-1.46)
[2021-12-04 22:07] LABS: Rheumatoid Factor 24.3 IU/mL (<12.0)
[2021-12-04 22:22] LABS: T3,Free 3.1 pg/mL (2.8-5.3)
[2021-12-04 23:05] LABS: Folate 23.8 ng/mL (See Note)
[2021-12-05 10:50] LABS: Hepatitis C Ab w Rflx HCV PCR Negative (Negative)
[2021-12-05 15:28] LABS: ANA Interpretation Negative (Negative)
[2021-12-06 05:17] LABS: Vitamin D 25 Total 32.2 ng/mL (30-100)
== END 2021-12-04 02:00 | disposition home or self-care (01) ==
LOC: LBO 01:59
PROVIDERS: PCP Family Medicine; Visit Provider Physical Medicine & Rehabilitation
DX: M79.10 Myalgia, unspecified site (principal); G47.9 Sleep disorder, unspecified; E61.1 Iron deficiency; E55.9 Vitamin D deficiency, unspecified; E53.8 Deficiency of other specified B group vitamins; R53.83 Other fatigue; D64.9 Anemia, unspecified; M89.9 Disorder of bone, unspecified
CPT/HCPCS: 80053; 82306; 82550; 85652; 86803; 82607; 82728; 82746; 83540; 83550; 83735; 84439; 84443; 84481; 85025; 86038; 86431

== ENCOUNTER → 2022-01-08 01:28 | Outpatient (CLI) | payer MEDICARE, MEDICAID, SELFPAY ==
--- NOTE | 2022-01-08 07:15 | DI.RAD_ITS ---
Exam(s) XR CHEST 2V PA LATERAL EXAM: XR CHEST 2V PA LATERAL CLINICAL HISTORY: recurrent sOB, aspiration risk, r05.9,r06.02,cough. TECHNIQUE: 2D digital imaging was performed. COMPARISON: CR XR CHEST 2V PA LATERAL from 05/03/2021 FINDINGS: 2 views: Heart size is normal. The mediastinum is not widened. Lungs are clear. No infiltrates nor pleural effusions. IMPRESSION: No acute pulmonary findings.No significant change compared 05/03/2021 DATA REPOSITORY: RADIATION DOSE DELIVERED:
== END ==
PROVIDERS: PCP Family Medicine; Visit Provider Family Medicine
DX: R05.9 Cough, unspecified (principal); R06.02 Shortness of breath
CPT/HCPCS: 71046

== ENCOUNTER 2022-01-22 02:49 | Outpatient (CLI) | payer MEDICARE, MEDICAID, SELFPAY ==
[2022-01-29 12:58] LABS: Misc Referral (MAYO) See Comments
[2022-01-29 15:57] LABS: Aspergillus amstelodami/glaucu Negative (Negative); Aspergillus flavus Negative (Negative); Aspergillus fumigatus Mix Negative (Negative); Aspergillus nidulans Negative (Negative); Aspergillus niger Negative (Negative); Aspergillus versicolor Negative (Negative)
[2022-02-19 09:55] LABS: Fungus Smear No Fungi Seen
== END 2022-01-22 02:50 | disposition home or self-care (01) ==
LOC: LBO 02:49
PROVIDERS: PCP Family Medicine; Visit Provider Physical Medicine & Rehabilitation
DX: M79.18 Myalgia, other site (principal); R53.83 Other fatigue
CPT/HCPCS: 36415; 86331; 87102; 87206; 87070; 87205

== ENCOUNTER 2022-02-05 03:12 | Outpatient (CLI) | payer OTHER, MEDICAID, SELFPAY ==
[2022-02-05] MEDS: Albuterol HFA 18 GM 200 PUFF INH IH (09:39)
[2022-02-05] MEDS: Inhaler, Assist Device 1 EACH MC (09:39)
--- NOTE | 2022-02-05 16:23 | W.PFT ---
Date of service: 02/05/22 Time of Service: 08:03 Pulmonary Function Test Result Requesting Provider Duchene Indications: Dyspnea Interpretation Spirometry: There is no airflow limitation. There is no significant bronchodilator response. Lung Volumes: Normal lung volumes Diffusion Capacity: The diffusion is normal Airway Pressure: Airways resistance is normal Impression Normal pulmonary function testing. Note: When compared to 05/08/21, lung function is stable. Clinical Correlation therefore is recommended.
--- NOTE | 2022-02-12 18:52 | W.PFT ---
Date of service: 02/06/22 Time of Service: 16:00 Pulmonary Function Test Result Indications: Hypoxia Note: Overnight Oximetry Amount of time analyzed: 03:50, no O2 used Number of minutes under 88%: 0.7 minutes GABRIELLA:6.8 Appearance of oxygen saturation pattern:Rapid increases and decreases in oxygen that could be consistent with APOLLO. Recommendation: PSG if not already completed. Jamila Russell MD Pulmonary & Critical Care Medicine Clinical Correlation therefore is recommended.
== END 2022-02-05 03:13 | disposition home or self-care (01) ==
LOC: RT 03:13
PROVIDERS: PCP Family Medicine; Visit Provider Student in an Organized Health Care Education/Training Program
DX: R06.09 Other forms of dyspnea (principal); R05.9 Cough, unspecified
CPT/HCPCS: 94060; 94726; 94729; 94762

== ENCOUNTER 2022-03-01 13:59 | Outpatient (CLI) | payer OTHER, MEDICAID, SELFPAY ==
--- NOTE | 2022-03-01 13:45 | RT.EKG_ITS ---
APPROVED REPORT Exam: Resting ECG Reason for Exam: NPW, Baseline needed Patient Location: O HR:66 bpm ECG Measurements Heart Rate 66 AXIS OH 142 P 64 QRSd 90 QRS 39 QT 370 T 5 QTc 388 Conclusion Sinus rhythm...normal P axis, V-rate 50- 99 Normal Electrocardiogram
== END 2022-03-01 14:00 | disposition home or self-care (01) ==
LOC: DI.CARD 14:00
PROVIDERS: PCP Family Medicine; Visit Provider Internal Medicine Cardiovascular Disease
DX: R07.9 Chest pain, unspecified (principal); R55 Syncope and collapse
CPT/HCPCS: 93010

== ENCOUNTER → 2022-03-01 13:59 | Outpatient (BNVA) | payer OTHER, MEDICAID, SELFPAY | PROVIDERS: PCP Family Medicine; Referring Provider Family Medicine; Visit Provider Internal Medicine Cardiovascular Disease | DX: R07.9 Chest pain, unspecified; R06.00 Dyspnea, unspecified | CPT/HCPCS: 93005; 99202; 99214 ==

== ENCOUNTER 2023-04-02 11:47 | Outpatient (REF) | payer MEDICARE, MEDICAID, SELFPAY | END 2023-04-02 11:48 | disposition home or self-care (01) | LOC: NCHCN 11:47 | PROVIDERS: Visit Provider Nurse Practitioner Family | DX: N39.0 Urinary tract infection, site not specified (principal) | CPT/HCPCS: 87086 ==

== ENCOUNTER 2023-04-29 05:30 | Emergency (ER) | payer MEDICARE, MEDICAID, SELFPAY ==
--- NOTE | 2023-04-29 05:30 | RT.EKG_ITS ---
APPROVED REPORT Exam: Resting ECG Reason for Exam: weakness Patient Location: E HR:60 bpm ECG Measurements Heart Rate 60 AXIS ID 160 P 62 QRSd 86 QRS 60 QT 382 T 25 QTc 383 Conclusion Sinus rhythm...normal P axis, V-rate 60- 99 sinus rhythm, normal axis, normal intervals, non ischemic
[2023-04-29 05:33] VITALS: BP 125/91; PULSE 58; RESP 14; TEMP 36.9; O2SAT 98
--- OUTSIDE RECORDS SUMMARY | 2023-04-29 05:38 | XMS_ITS | Continuity of Care Document ---
Author Name Unknown Organization [facility] Address [address] [place] [address] Care Team Providers Care Procurement Technician Name Role Phone Savita Escobar Primary Care Physician [facility] Date(s): 11/13/22 - 11/13/[address] [address] Discharge Disposition: Home or Self Care Attending Physician: Jose Maria Oliver MD Admitting Physician: Jose Maria Oliver MD Referring Physician: Jose Maria Oliver MD Allergies, Adverse Reactions, Alerts Substance Reaction Severity Status DOG DANDER Unknown Active EGG Unknown Active GRASS POLLEN Unknown Active HOUSE DUST Unknown Active CAT DANDER Unknown Active RAGWEED POLLEN Unknown Active cefuroxime Unknown Active omeprazole Unknown Active albuterol Rapid heart beat Unknown Active tamsulosin Unknown Active fluticasone nasal Unknown Active montelukast Unknown Active penicillins Unknown Active sulfa drugs Unknown Active predniSONE Unknown Active Influenza Virus Vaccine Unknown Acti ve LORazepam Itching Mild Active Flower 1 Unknown Active levoFLOXacin Unknown Active 1Lavender (Lavandula angustifolia); increased mucus Assessment and Plan Future Appointments Diagnostic Tests Pending * Aspergillus fumigatus, IgG Abs, [facility] 11/13/22 * Aspergillus fumigatus, IgE, [facility] 11/13/22 * 1,7-Skwg-D-Glucan (Fungitell), [facility] 11/13/22 * ANCA Vasculitis Panel, [facility] 11/13/22 * IgE [facility] 11/13/22 Immunizations Given and Recorded Vaccine Date Status Refusal Reason tetanus/diphth/pertuss (Tdap) adult/adol 01/20/20 Recorded Medications [place] Saline nasal gel [place] Saline nasal gel, as directed Start Date: 03/08/22 Status: Ordered ibuprofen 600 mg oral tablet Start Date: 03/08/22 Status: Ordered pantoprazole 40 mg oral delayed release tablet Start Date: 03/08/22 Status: Ordered Problem List Condition Confirmation Course Effective Dates Status Health St atus Informant Allergic rhinitis Confirmed 05/05/20 Active Chronic hoarseness Confirmed 06/02/20 Active Chronic sphenoidal sinusitis Confirmed 09/14/20 Active Deviated nasal septum Confirmed 06/02/20 Active 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 Erectile dysfunction Confirmed 06/02/20 Active Procedures Procedure Date Related Diagnosis Body Site Status EGD (esophagogastroduodenosc opy) gastric outlet reduction 07/09/20 Complet ed Urethroplasty for stricture 2013 Completed Cystoscopy Completed Results Laboratory List Name Date CBC w/ Diff 11/13/22 Renal Function Panel 11/13/22 Sedimentation Rate (ESR) 11/13/22 Automated Diff 11/13/22 Most recent to oldest [Reference Range]: 1 WBC [5.0-10.0 x10^3/mcL] 6.3 x10^3/mcL (11/13/22 10:24 AM) RBC [4.6-6.0 x10^6/mcL] 5.1 x10^6/mcL (11/13/22 10:24 AM) Neutro Auto [40.0-75.0 %] 66.6 % (11/13/22 10:24 AM) Lymph Auto [20.0-50.0 %] 18.6 % *LOW* (11/13/22 10:24 AM) [place] Auto [2.0-15.0 %] 8.2 % (11/13/22 10:24 AM) Basophil Auto [0.0-1.0 %] 0.9 % (11/13/22 10:24 AM) BUN [7-18 mg/dL] 17 mg/dL (11/13/22 10:24 AM) Glucose Level [74-106 mg/dL] 108 mg/dL *HI* (11/13/22 10:24 AM) Potassium Level [3.5-5.1 mmol/L] 4.0 mmo l/L (11/13/22 10:24 AM) MCV [80.0-96.0] 91.0 (11/13/22 10:24 AM) MCHC [31.0-35.0 g/dL] 34.8 g/dL (11/13/22 10:24 AM) Sodium Level [136-145 mmol/L] 141 mmol/L (11/13/22 10:24 AM) Hct [41.0-51.0 %] 46.6 % (11/13/22 10:24 AM) Calcium Level [8.5-10.1 mg/dL] 8.5 mg/dL (11/13/22 10:24 AM) Phosphorus Level [2.6-4.7 mg/dL] 3.8 mg/ dL (11/13/22 10:24 AM) Albumin Level [3.4-5.0 g/dL] 3.8 g/dL (11/13/22 10:24 AM) MCH [26.0-32.0 pg] 31.6 pg (11/13/22 10:24 AM) Neutro Absolute 4.2 x10^3/mcL *NA* (11/13/22 10:24 AM) Hgb [14.0-18.0 g/dL] 16.2 g/dL (11/13/22 10:24 AM) Platelets [130-450 x10^3/mcL] 279 x10^3/ mcL (11/13/22 10:24 AM) CO2 [21-32 mmol/L] 27 mmol/L (11/13/22 10:24 AM) eGFR Non-AA [>=60] 100 (11/13/22 10:24 AM) eGFR AA [>=60] 100 (11/13/22 10:24 AM) Chloride Level [98-107 mmol/L] 106 mmol/ L (11/13/22 10:24 AM) RDW-CV [11.5-17.0 %] 12.8 % (11/13/22 10:24 AM) Imm Gran Auto [0.0-0.9 %] 0.2 % (11/13/22 10:24 AM) Creatinine Level [0.70-1.30 mg/dL] 0.79 mg/dL (11/13/22 10:24 AM) Eos, Auto [1.0-6.0 %] 5.5 % (11/13/22 10:24 AM) ESR, [place] [0-20 mm/hr] 0 mm/hr (11/13/22 10:24 AM) Social History Social History Type Response Tobacco Never tobacco user T obacco Use:. Sex Male Patient Care team information Care Team Personnel Name: Savita Escobar NP Position: No Access Member Role: Primary Care Physician Address: Address: [address] [place] [address]- Care Team Related Persons Name: PRATIMA MARI Name: [place] LITTLE Name: ANTHONY GRANT
--- OUTSIDE RECORDS SUMMARY | 2023-04-29 05:38 | XMS_ITS | Continuity of Care Document ---
Author Name Unknown Organization [facility] Address [address] [place] [address] Care Team Providers Care Dermatological Surgeon Name Role Phone Bev Hurst Primary Care Physician [phone] Encounter [facility] Date(s): 05/24/22 - 05/24/22 [facility] [address] [place] [address] Discharge Disposition: Home or Self Care Attending Physician: Lesley Mota Admitting Physician: Lesley Mota Referring Physician: Lesley Mota Allergies, Adverse Reactions, Alerts Substance Reaction Severity Status DOG DANDER Unknown Active EGG Unknown Active GRASS POLLEN Unknown Active HOUSE DUST Unknown Active CAT DANDER Unknown Active RAGWEED POLLEN Unknown Active cefuroxime Unknown Active omeprazole Unknown Active albuterol Rapid heart beat Unknown Active tamsulosin Unknown Active fluticasone nasal Unknown Active montelukast Unknown Active predniSONE Unknown Active Influenza Virus Vaccine Unknown Acti ve LORazepam Itching Mild Active Flower 1 Unknown Active levoFLOXacin Unknown Active sulfa drugs Unknown Active penicillins Unknown Active 1Lavender (Lavandula angustifolia); increased mucus Assessment and Plan Future Appointments Immunizations Given and Recorded Vaccine Date Status Refusal Reason tetanus/diphth/pertuss (Tdap) adult/adol 01/20/20 Recorded Medications [place] Saline nasal gel [place] Saline nasal gel, as directed Start Date: [...] Cystoscopy Completed Results Laboratory List Name Date Automated Diff 05/24/22 CBC w/ Diff 05/24/22 Comprehensive Metabolic Panel 05/24/22 Most recent to oldest [Reference Range]: 1 WBC [5.0-10.0 x10^3/mcL] 8.7 x10^3/mcL (05/24/22 4:26 PM) RBC [4.6-6.0 x10^6/mcL] 5.3 x10^6/mcL (05/24/22 4:26 PM) Neutro Auto [40.0-75.0 %] 74.1 % (05/24/22 4:26 PM) Lymph Auto [20.0-50.0 %] 17.8 % *LOW* (05/24/22 4:26 PM) [place] Auto [2.0-15.0 %] 6.0 % (05/24/22 4:26 PM) Basophil Auto [0.0-1.0 %] 0.9 % (05/24/22 4:26 PM) BUN [7-18 mg/dL] 20 mg/dL *HI* (05/24/22 4:26 PM) Glucose Level [74-106 mg/dL] 102 mg/dL (05/24/22 4:26 PM) Potassium Level [3.5-5.1 mmol/L] 3.8 mmo l/L (05/24/22 4:26 PM) MCV [80.0-103.0 fL] 91.0 fL (05/24/22 4:26 PM) AST [15-37 unit/L] 25 unit/L (05/24/22 4:26 PM) ALT [16-63 unit/L] 29 unit/L (05/24/22 4:26 PM) MCHC [31.0-35.0 g/dL] 35.7 g/dL *HI* (05/24/22 4:26 PM) Sodium Level [136-145 mmol/L] 139 mmol/L (05/24/22: PM) Hct [41.0-51.0 %] 48.4 % (05/24/22: PM) Calcium Level [8.5-10.1 mg/dL] 8.9 mg/dL (05/24/22: PM) Albumin Level [3.4-5.0 g/dL] 4.4 g/dL (05/24/22: PM) Protein Total [6.4-8.2 g/dL] 7.4 g/dL (05/24/22: PM) MCH [26.0-32.0 pg] 32.5 pg *HI* (05/24/22: PM) Neutro Absolute 6.4 x10^3/mcL *NA* (05/24/22 PM) Bilirubin Total [0.2-1.0 mg/dL] 2.5 mg/d L *HI* (05/24/22: PM) Hgb [14.0-18.0 g/dL] 17.3 g/dL (05/24/22: PM) Alk Phos [46-146 unit/L] 54 unit/L (05/24/22: PM) Platelets [130-450 x10^3/mcL] 299 x10^3/ mcL (05/24/22: PM) CO2 [21-32 mmol/L] 28 mmol/L (05/24/22: PM) eGFR Non-AA [>=60] 101 (05/24/22: PM) eGFR AA [>=60] 101 (05/24/22: PM) Chloride Level [98-107 mmol/L] 104 mmol/ L (05/24/22: PM) RDW-CV [11.5-17.0 %] 12.4 % (05/24/22 PM) Imm Gran Auto [0.0-0.9 %] 0.2 % (05/24/22: PM) Creatinine Level [0.70-1.30 mg/dL] 0.78 mg/dL (05/24/22: PM) Eos, Auto [1.0-6.0 %] 1.0 % (05/24/22 4:26 PM) Social History Social History Type Response Tobacco Never tobacco user T obacco Use:. Sex Male Patient Care team information Personnel Name: Bev Hurst Address: Address: [address] [place] [address] Drive [address] [place] [address]
--- OUTSIDE RECORDS SUMMARY | 2023-04-29 05:38 | XMS_ITS | Continuity of Care Document ---
Author Name Unknown Organization [facility] Address [address] [place] [address] Care Team Providers Care Driller'S Offsider Name Role Phone Bev Hurst Primary Care Physician Encounter [facility] Date(s): 05/23/22 - 05/23/22 [facility] [address] [place] [address] Discharge Disposition: Home or Self Care Attending Physician: Marvel Vines Admitting Physician: Marvel Vines Allergies, Adverse Reactions, Alerts Substance Reaction Severity [...] Unknown Acti ve LORazepam Itching Mild Active levoFLOXacin Unknown Active Flower 1 Unknown Active penicillins Unknown Active sulfa drugs Unknown Active 1Lavender (Lavandula angustifolia); increased mucus Assessment and Plan Future Appointments Immunizations Given and Recorded Vaccine Date Status Refusal Reason tetanus/diphth/pertuss (Tdap) adult/adol 01/20/20 Recorded Medications [place] Saline nasal gel [place] Saline nasal gel, as directed Start Date: [...] Urethroplasty for stricture 2013 Completed Cystoscopy Completed Social History Social History Type Response Tobacco Never tobacco user T obacco Use:. Sex Male Patient Care team information Personnel Name: Bev Hurst Address: Address: [address] [place] [address] Drive [address]
--- OUTSIDE RECORDS SUMMARY | 2023-04-29 05:38 | XMS_ITS | Continuity of Care Document ---
Author Name Unknown Organization [facility] Address [address] [place] [address] Care Team Providers Care Manager [employer] Name Role Phone Bev Hurst Primary Care Physician [phone] [facility] - 06/18/22 [facility] [address] [place] [address] Discharge Disposition: Home or Self Care Attending Physician: Unavailable, Physician Admitting Physician: Unavailable, Physician Referring Physician: Unavailable, Physician Allergies, Adverse Reactions, Alerts Substance Reaction Severity Status DOG DANDER Unknown Active EGG Unknown Active GRASS POLLEN Unknown Active HOUSE DUST Unknown Active CAT DANDER Unknown Active RAGWEED POLLEN Unknown Active cefuroxime Unknown Active omeprazole Unknown Active albuterol Rapid heart beat Unknown Active tamsulosin Unknown Active fluticasone nasal Unknown Active montelukast Unknown Active penicillins Unknown Active sulfa drugs Unknown Active predniSONE Unknown Active LORazepam Itching Mild Active Flower 1 Unknown Active levoFLOXacin Unknown Active Influenza Virus Vaccine Unknown Acti ve 1Lavender (Lavandula angustifolia); increased mucus Assessment and Plan Future Appointments Immunizations Given and Recorded Vaccine Date Status Refusal Reason tetanus/diphth/pertuss (Tdap) adult/adol 01/20/20 Recorded Medications [place] Saline nasal gel [place] Saline nasal gel, as directed Start Date: [...] Cystoscopy Completed Results Laboratory List Name Date BUN 06/18/22 Creatinine 06/18/22 Most recent to oldest [Reference Range]: 1 BUN [7-18 mg/dL] 23 mg/dL *HI* (06/18/22 10:25 AM) eGFR Non-AA [>=60] 99 (06/18/22 10:25 AM) eGFR AA [>=60] 99 (06/18/22 10:25 AM) Creatinine Level [0.70-1.30 mg/dL] 0.84 mg/dL (06/18/22 10:25 AM) Social History Social History Type Response Tobacco Never tobacco user T obacco Use:. Sex Male Patient Care team information Personnel Name: Bev Hurst Address: Address: [address] [place] [address] Drive [address]
--- OUTSIDE RECORDS SUMMARY | 2023-04-29 05:38 | XMS_ITS | Continuity of Care Document ---
Author Name Unknown Organization [facility] Address [address] [place] [address] Care Team Providers Care Vegetable Grader Name Role Phone Savita Escobar Primary Care Physician [phone] Encounter [facility] Date(s): 10/30/22 - 10/30/22 [facility] [address] [place] [address] Discharge Disposition: Home or Self Care Attending Physician: Hellen Harris NP Admitting Physician: Hellen Harris NP Referring Physician: Hellen Harris NEUROSURGEON Allergies, Adverse Reactions, Alerts Substance Reaction Severity [...] Reason tetanus/diphth/pertuss (Tdap) adult/adol 01/20/20 Recorded Medications [place] Saline nasal gel [place] Saline nasal gel, as directed Start Date: [...] information Care Team Personnel Name: Savita Escobar NEUROSURGEON Position: No Access Member Role: Primary Care Physician Address: Address: [address] Care Team Related Persons Name: PRATIMA MARI Name: [place] LITTLE Name: ANTHONY GRANT
--- NOTE | 2023-04-29 06:00 | DI.CT_ITS ---
Exam(s) CT NECK CHEST W EXAM: CT NECK CHEST W CLINICAL HISTORY: regurgitation, chest tightness acute on chronic TECHNIQUE: Imaging Protocol: Axial computed tomography images with coronal and sagittal reformatted images were created and reviewed CONTRAST MATERIAL: Intravenous: Omnipaque 350 Contrast volume:110 ml Oral: / no COMPARISON: CR XR CHEST 2V PA LATERAL from 01/08/2022 FINDINGS: Neck: Parotids/submandibular/thyroid gland: Normal. Lymphadenopathy: There is scattered lymph nodes seen along the level one to level three all measurin g less than 8 mm in short axis diameter which are physiologic in nature. Carotids/Jugular: Within normal limits. Vertebral arteries appear normal. Soft tissues: The floor the mouth is unremarkable. The epiglottis and vocal cords are within normal limits. Bones: No fracture. No lytic or blastic lesions. Negative changes. Sinuses: Clear. No evidence of mass or bony destruction. Mastoid air cells: Clear. Visualized portions of the brain are unremarkable. Chest: Tracheobronchial tree: Patent where visualized. Mediastinum and Bailee: No dominant adenopathy or fluid collection. Pulmonary parenchyma: No consolidation or dominant measurable mass. Pleura: No effusion or pneumothorax. Heart/Aorta: Thoracic aorta non-dilated. The heart is not dilated. No coronary artery calcifications are seen. Pulmonary arteries: No evidence of emboli. Bones: No fracture. No lytic or blastic lesions. Mild degenerative changes. Esophagus not dilated. No visible wall thickening or mass. ABDOMEN: The upper portion of the abdomen is included on the exam. Liver: Normal density. No measurable mass. Gallbladder and biliary tract: No radiodense calculus or dilation. Pancreas: Normal density, no abnormal calcifications or inflammatory process. Spleen: Normal. Kidneys: Normal size, contour and axis. No radiodense stones or obstructive uropathy. No suspicious m asses seen. Adrenal glands: No masses seen. Abdominal Aorta: Abdominal portion non-dilated. IMPRESSION: Normal no acute abnormality in the Neck, Chest and upper abdomen.. RADIATION DOSE DELIVERED: 762.05mGy.cm Total DLP DATA REPOSITORY: All CT scans at this facility are submitted to the National Radiology Data Registry (NRDR) Dose Index Registry (DIR) with the [employer] [place] [employer] (ACR). RADIATION OPTIMIZATION: All CT scans at this facility use at least one of these dose optimization te chniques: automated exposure control; mA and/or kV adjustment per patient size (includes targeted exa ms where dose is matched to clinical indication); or iterative reconstruction.
--- NOTE | 2023-04-29 06:06 | ED.GENADUL_ITS ---
Discharge Plan Discharge Details Chief Complaint: EarProblem Primary Care Provider: Unknown,Unknown ED Provider: Getachew Smith Home Meds and New Rx's Prescriptions: No Action cromolyn [Nasalcrom] 5.2 mg/spray (4 %) spray,non-aerosol 1 spray intranasal Q8H PRN (Reason: congestion) Qty: 26 0RF Rx Instructions: each nostril lubricants [Personal Lubricating Jelly] Gel 1 applic topical 7XD benzalkonium chloride 0.13 % towelette 1 towel topical 7XD magnesium 200 mg PO DAILY (DME) Bardia Red Rubber Catheter 14 Fr misc See Rx Instructions .Route Qty: 12 3RF Rx Instructions: As directed - Korean tip, 14 Fr, soft opaque catheters multivitamin Tablet 1 tab PO DAILY L.acid-L.rham-B.breve-S.therm 3 billion cell Tablet,Chewable 2 tab PO DAILY Cranactin 2 cap PO DAILY Graefruit Seed Extract 10 drp PO DAILY Medical Decision Making 62-year-old male presents with chronic esophageal and thoracic symptoms characterized by foreign body sensation in throat issues swallowing, regurgitation, endorses extensive evaluation at [facility] as well as the [facility] system without definitive diagnosis, patient is scheduled to be seen by rheumatology GI and general surgery in the [facility] system within the coming months for further evaluation, this evening feels as if his eustachian tube is clogged and his TMJ is acting up and has tightness in his chest radiating up into his throat. Patient clearing his throat and bringing up saliva. No vomiting no shortness of breath, afebrile nontoxic symptomatology abates during history taking when patient is talking at length about his symptoms. Was able to find extensive GI note which demonstrates a mild dysmotility observed during barium swallow study on 02/16/2021 without signs of obstruction patient was referred for manometry study in 2020 which she did not follow-up with. Per note patient underwent ENT procedure for aspergillus sinuisitis;. High-resolution esophageal manometry at [facility] on 10/16/22, normal lower esophageal sphincter relaxation, increased proximal esophageal acid exposure when supine; patient was also seen at [facility] 01/24/2022 underwent flexible upper endoscopy which showed mild edema to the glottic region was diagnosed with laryngeal pharyngeal reflux and placed on Pepcid he stopped this medication due to it causing a numb sensation in his body patient also endorses that he cannot tolerate PPIs, per [facility] GI no signs of [place] esophagus no signs of eosinophilic esophagitis no strictures no Schatzki rings, acid suppression test showing no signs of GERD Given patient's extensive work-up is unlikely that we will find a new diagnosis today however patient has not undergone CT imaging of chest and neck to assess for pathology such as mediastinal thoracic and/or neck malignancy or anatomical variations. For this reason we will obtain a contrast-enhanced CT study of chest and neck. Patient be given small fluid bolus and Zofran. We will send screening labs and troponin. EKG normal sinus rhythm nonischemic. 7: 48 patient resting comfortably no acute distress. Pending results of CT chest and neck for disposition. Patient has follow-up through the [facility] system in [place] with general surgery GI and rheumatology per [facility] records. HPI General Date/Time Provider Initiated Documentation: 04/29/23 06:00 . HPI Narrative: 62-year-old male endorses several months of chest tightness poor eustachian tube drainage and TMJ symptomatology causing neck and chest discomfort. Endorses extensive history of sinus issues including aspergilloma that was removed endoscopically. Endorses being evaluated by the [facility] [place] system as well as the [facility] system without definitive diagnosis. Related Data Home Medications Medication Instructions Recorded Confirmed Cranactin 2 cap PO DAILY 03/18/21 08/09/22 Graefruit Seed Extract 10 drp PO DAILY 03/18/21 08/09/22 L.acidophilus,rhamnosus-B.breve-S.thermophilus 2 tab PO DAILY 03/18/21 08/09/22 3 billion cell chew tab multivitamin 1 tab PO DAILY 03/18/21 04/29/23 magnesium 200 mg PO DAILY 03/28/21 08/09/22 cromolyn 5.2 mg/spray (4 %) nasal 1 spray intranasal Q8H PRN 01/04/22 04/29/23 spray (Nasalcrom) congestion #26 mL benzalkonium chloride 0.13 % 1 towel topical 7XD 01/23/22 08/09/22 towelette lubricants topical gel (Personal 1 applic topical 7XD 01/23/22 04/29/23 Lubricating Jelly topical) catheter 14 Fr (Bardia Red Rubber #12 ea 03/06/22 08/09/22 Catheter) Previous Rx's Medication Instructions Recorded cromolyn 5.2 mg/spray (4 %) nasal 1 spray intranasal Q8H PRN 01/04/22 spray (Nasalcrom) congestion #26 mL catheter 14 Fr (Bardia Red Rubber #12 ea 03/06/22 Catheter) Allergies Allergy/AdvReac Type Severity Reaction Status Date / Time egg Allergy Severe egg-based Verified 04/29/23 05:44 vaccines required epi injection fentanyl Allergy Severe Confulsions, Verified 04/29/23 05:44 severe vomiting, decreased BP and HR sulfamethoxazole Allergy Severe Skin Rash Verified 04/29/23 05:44 [From Bactrim] trimethoprim [From Bactrim] Allergy Severe Skin Rash Verified 04/29/23 05:44 Penicillins Allergy Anaphylaxis Verified 04/29/23 05:44 prednisone AdvReac Severe Pt. states Verified 04/29/23 05:44 adverse effect causes increased inflammation Sulfa (Sulfonamide AdvReac Severe States it Verified 04/29/23 05:44 Antibiotics) made him numb on the right side which made him col levofloxacin AdvReac Intermediate Neuropathy Verified 04/29/23 05:44 pantoprazole AdvReac Intermediate palpitation Verified 04/29/23 05:44 s General Stated Complaint: EarProblem ARIANA: 4 Review of Systems Narrative: Review of Systems Constitutional: negative Eyes: negative ENT: Trouble swallowing, regurgitation Cardiovascular: Chest tightness Respiratory: negative Gastrointestinal: negative : negative Musculoskeletal: negative Skin: negative Neurologic: negative Psych: negative PFSH All Active Problems Laryngopharyngeal reflux (Chronic ~01/2022) based on nasopharyngoscopy by [facility]. Planned famotidine rx. Nocturnal hypoxia (Acute) Urinary incontinence (Acute) Associated with neurogenic bladder, patient self catheterizes. 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 No other hepatic abnormalities- consistent with Gilbert's syndrome Dysphagia (Acute) Multiple prior GI-ENT evaluations Chronic rhinitis (Chronic) Neurogenic bladder (Chronic) Status post remote injury, neurogenic bladder, patient self catheterizes- managed by urology Palpitations (Acute) Dyspnea (Acute) Syncope (Chronic) Esophageal dysmotility (Acute) Chest pain (Acute) Medical History [place]inic [place] [place]. Allergic rhinitis Atonic bladder Self-catheterizes, limits ability to travel for appointments Chronic cough Chronic sphenoidal sinusitis Family history of prostate cancer Grandfather and uncles History of atypical nevus History of postoperative nausea and vomiting patient states nausea/vomiting from surgery 2013 with fentanyl used in part History of urethral stricture surgery 2013 Lichen simplex chronicus 08/07/21-[facility] [place] [facility] Multiple complaints Nasal obstruction removal of mass/scar in left sphenoid sinus, [facility]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 Brother No problems noted. Brother Heart disease Social History Smoking/Tobacco Use Status: Never Second Hand Exposure: Yes Smoking risk assessment performed?: Yes Alcohol Intake: current Alcohol Intake frequency: a few times a month Alcohol type: hard liquor Drug use: Occasionally Substance use type: marijuana Details: Pt reports using 2 days ago. Reports several times of week smoking. Adopted: No Foster care: No Housing: other Number of Children: 0 number of grandchildren: 0 Education Level: high school Pets and animals: No Sexually active: No Do you think of yourself as: straight/heterosexual Current gender identity: male What is your relationship status?: never How often do you talk on the phone with friends or family?: three or more times per week How often do you get together with friends or relatives?: three or more times per week How often do you attend oriental orthodox or druze services?: decline to answer Do you belong to any clubs or organized social groups?: no Panel score (0-1 are the most socially isolated patients): 1 What type of physical activity do you participate in: walking, weight lifting and yoga Frequency: daily Carmela/Uatsdin: None Special carmela needs: No Seatbelt use: always Drive intox or ride w/intox pedicab driver: No Do you feel safe at home: Yes Do you feel safe in your relationship?: Yes Exam Narrative Exam Narrative: Physical Examination General: alert, awake, cooperative, resting comfortably, no acute distress HEENT: normocephalic, atraumatic; PERRL, EOM intact, conjunctiva normal; no nasal discharge; moist mucous membranes, oral and pharyngeal mucosa normal, tolerating secretions Neck: supple, trachea midline; full ROM Chest: normal to inspection Respiratory: normal respiratory effort, speaking in full sentences, clear to auscultation, no wheezing, rales or rhonchi Cardiac: regular rate, regular rhythm, S1S2 intact, no murmurs rubs or gallops GI: abdomen soft, non-tender, non-distended; no palpable mass or hepatosplenomegaly Skin: no lesions, rashes or trauma appreciated Neuro: AAOx3, normal speech, moving all extremities Course Vital Signs Vital signs: Vital Signs Temperature 36.9 C 04/29/23 05:33 Pulse 58 L 04/29/23 05:33 Respiratory Rate 14 04/29/23 05:33 Blood Pressure 125/91 H 04/29/23 05:33 Pulse Oximetry 98 04/29/23 05:33 Temperature 36.9 C 04/29/23 05:33 Pulse 58 L 04/29/23 05:33 Respiratory Rate 14 04/29/23 05:33 Respiratory Effort Normal, Non-Labored 04/29/23 05:39 Blood Pressure 125/91 H 04/29/23 05:33 Pulse Oximetry 98 04/29/23 05:33 Oxygen Delivery Method Room Air 04/29/23 05:33 Oxygen Flow Rate 0 04/29/23 05:33 Pain Level 5 04/29/23 05:40
[2023-04-29] MEDS: Omnipaque 350 MG/ML 100 ML BTL IJ (06:18)
[2023-04-29 06:19] LABS: Abs Immature Grans 0.03 10^3/uL (0.0-0.06); Absolute Basophil Count 0.04 10^3/uL (0.0-0.2); Absolute Eosinophil Count 0.18 10^3/uL (0.0-0.7); Absolute Monocyte Count 0.57 10^3/uL (0.1-0.8); Absolute Neutrophil Count 4.73 10^3/uL (1.2-6.7); Basophils % 0.6; Eosinophils % 2.6; HGB 16.9 g/dL (13.5-17.5); Immature Grans % 0.4; Lymphocytes % 20.1; MCH 31.2 pg (27.0-33.0); MCHC 34.5 % (32.0-36.0); MCV 90 fL (80-95); MPV 8.5 fL (8.0-11.0); Monocytes % 8.2; Neutrophils % 68.1; Platelet Count 282 10^3/uL (130-400); RBC 5.42 10^6/uL (4.36-5.78); RDW 12.8 % (11.8-14.1); RDW-SD 42.1 fL; WBC 6.95 10^3/uL (4.4-10.8)
[2023-04-29] MEDS: Omnipaque 350 MG/ML 50 ML BTL IJ (06:19)
[2023-04-29] MEDS: Normal Saline Flush 10 ML SYR IVP (06:20)
[2023-04-29] MEDS: Normal Saline - Diluent 50 ML VIAL IJ (06:20)
[2023-04-29 06:39] LABS: ALT 32 U/L (16-63); AST 22 U/L (15-37); Alkaline Phosphatase 52 U/L (46-116); Anion Gap 6.6 mmol/L (3-11); BUN 13 mg/dL (7-18); Bilirubin, Total 2.7 mg/dL (0.2-1.0); CO2 30.4 mmol/L (21.0-32.0); CREATININE 0.8 mg/dL (0.70-1.30); Calcium 9.5 mg/dL (8.5-10.1); Chloride 103 mmol/L (98-107); Estimated GFR 100.06 (mL/min/1.73m2); Glucose 96 mg/dL (74-106); Potassium 3.9 mmol/L (3.5-5.1); Sodium 140 mmol/L (136-145); Total Protein 7.3 g/dL (6.4-8.2); Troponin I < 50 ng/L (<or=60)
--- NOTE | 2023-04-29 08:15 | DI.VRAD_ITS ---
PROCEDURE INFORMATION: Exam: CT Neck With Contrast Exam date and time: 04/29/2023 6:27 AM Age: 62 years old Clinical indication: Cough and other: Chest tightness; Dysphagia / difficulty swallowing; Prior surgery; Surgery date: 6+ months; Surgery type: Removal of mass in left sphenoid sinus; Patient HX: Regurgitation, chest tightness acute on chronic TECHNIQUE: Imaging protocol: Computed tomography of the neck with contrast. 3D rendering (Not supervised by radiologist): MIP and/or 3D reconstructed images were created by the technologist. Radiation optimization: All CT scans at this facility use at least one of these dose optimization techniques: automated exposure control; mA and/or kV adjustment per patient size (includes targeted exams where dose is matched to clinical indication); or iterative reconstruction. Contrast material: ONIPAQUE 350; Contrast volume: 110 ml; Contrast route: INTRAVENOUS (IV); COMPARISON: CR XR CHEST 2V PA LATERAL 01/08/2022 11:07 AM FINDINGS: Pharynx: Unremarkable. No significant tonsillar enlargement. Larynx: Unremarkable. Epiglottis is normal. Prevertebral and retropharyngeal spaces: Unremarkable. Salivary glands: Normal. Glands are normal in size. Thyroid: Normal. No enlarged or calcified nodules. Lymph nodes: Unremarkable. No lymphadenopathy. Trachea: Visualized trachea is unremarkable. Lungs: Unremarkable as visualized. Bones/joints: Degenerative changes of the spine. Soft tissues: Unremarkable. No significant soft tissue swelling. IMPRESSION: No acute findings. PROCEDURE INFORMATION: Exam: CT Chest With Contrast; Diagnostic Exam date and time: 04/29/2023 6:27 AM Age: 62 years old Clinical indication: Cough and other: Chest tightness; Dysphagia / difficulty swallowing; Prior surgery; Surgery date: 6+ months; Surgery type: Removal of mass in left sphenoid sinus; Patient HX: Regurgitation, chest tightness acute on chronic TECHNIQUE: Imaging protocol: Diagnostic computed tomography of the chest with contrast. 3D rendering (Not supervised by radiologist): MIP and/or 3D reconstructed images were created by the technologist. Radiation optimization: All CT scans at this facility use at least one of these dose optimization techniques: automated exposure control; mA and/or kV adjustment per patient size (includes targeted exams where dose is matched to clinical indication); or iterative reconstruction. Contrast material: ONIPAQUE 350; Contrast volume: 110 ml; Contrast route: INTRAVENOUS (IV); COMPARISON: CR XR CHEST 2V PA LATERAL 01/08/2022 11:07 AM FINDINGS: Trachea: Central airways are patent. Lungs: No consolidation. Scattered punctate calcified granulomas. No suspicious nodule. Minimal dependent atelectasis. Pleural spaces: Unremarkable. No pneumothorax. No pleural effusion. Heart: Unremarkable. No cardiomegaly. No pericardial effusion. Lymph nodes: Unremarkable. No enlarged lymph nodes. Vasculature: Unremarkable. No aortic aneurysm. Spleen: Heterogeneous splenic enhancement, favored secondary to contrast timing. Bones/joints: Degenerative changes of the spine. Soft tissues: Unremarkable. IMPRESSION: No acute findings. Dictated and Authenticated by: Marvel Segura MD. Ordering:PIETER Chilel MD
--- NOTE | 2023-04-29 09:38 | ED.PROG_ITS ---
Date of service: 04/29/23 Time of Service: 09:39 Medical Decision Making Care was signed out by Dr. Smith with plan to follow-up on CT imaging. CT of the neck and chest was interpreted by radiology: No acute process. Labs reviewed. All results were discussed with the patient. Plan for discharge with outpatient follow-up as scheduled. Patient has follow- up with specialist at [facility]. Lab Data Lab results reviewed: Yes I reviewed the patient's lab results. Labs: Laboratory Tests Range/Units 04/29/23 04/29/23 06:10 06:10 WBC (4.4-10.8) 10^3/uL 6.95 RBC (4.36-5.78) 10^6/uL 5.42 Hgb (13.5-17.5) g/dL 16.9 Hct (40.0-50.0) % 49.0 MCV (80-95) fL 90 MCH (27.0-33.0) pg 31.2 MCHC (32.0-36.0) % 34.5 RDW (11.8-14.1) % 12.8 Plt Count (130-400) 10^3/uL 282 MPV (8.0-11.0) fL 8.5 Immature Gran % 0.4 Neutrophils % 68.1 Lymphocytes % 20.1 Monocytes % 8.2 Eosinophils % 2.6 Basophils % 0.6 Nucleated RBC % (0.0-0.3) % 0.0 Absolute Neutrophils (1.2-6.7) 10^3/uL 4.73 Absolute Lymphocytes (1.2-3.4) 10^3/uL 1.40 Absolute Monocytes (0.1-0.8) 10^3/uL 0.57 Absolute Eosinophils (0.0-0.7) 10^3/uL 0.18 Absolute Basophils (0.0-0.2) 10^3/uL 0.04 Sodium (136-145) mmol/L 140 Potassium (3.5-5.1) mmol/L 3.9 Chloride (98-107) mmol/L 103 Carbon Dioxide (21.0-32.0) mmol/L 30.4 Anion Gap (3-11) mmol/L 6.6 BUN (7-18) mg/dL 13 Creatinine (0.70-1.30) mg/dL 0.8 Est GFR (CKD-EPI 2020) (mL/min/1.73m2) 100.06 Glucose (74-106) mg/dL 96 Calcium (8.5-10.1) mg/dL 9.5 Total Bilirubin (0.2-1.0) mg/dL 2.7 H AST (15-37) U/L 22 ALT (16-63) U/L 32 Alkaline Phosphatase (46-116) U/L 52 Troponin I (<or=60) ng/L < 50 Total Protein (6.4-8.2) g/dL 7.3 Albumin (3.4-5.0) g/dL 4.0 Sign Out Sign Out Data: Sign Out Comment: chronic issue with swallowing; pending CT chest neck to rule out mass/anatomic variant; has close followup through [facility] in [place] (gen surg, GI, rheum); [place] likely Last updated by Getachew Smith MD at 04/29/23 07:45 Discharge Plan Disposition Patient Disposition: Home Condition: Stable Discharge Details Clinical Impression: Esophageal dysmotility, Oropharyngeal lesion Primary Care Provider: Unknown,Unknown ED Provider: Ministerio Saucedo Home Meds and New Rx's Prescriptions: Continued cromolyn [Nasalcrom] 5.2 mg/spray (4 %) spray,non-aerosol 1 spray intranasal Q8H PRN (Reason: congestion) Qty: 26 0RF Rx Instructions: each nostril lubricants [Personal Lubricating Jelly] Gel 1 applic topical 7XD multivitamin Tablet 1 tab PO DAILY Discontinued benzalkonium chloride 0.13 % towelette 1 towel topical 7XD Patient Comments: not taking magnesium 200 mg PO DAILY Patient Comments: not taking L.acid-L.rham-B.breve-S.therm 3 billion cell Tablet,Chewable 2 tab PO DAILY Patient Comments: not taking Cranactin 2 cap PO DAILY Patient Comments: not taking Graefruit Seed Extract 10 drp PO DAILY Patient Comments: not taking No Action (DME) Bardia Red Rubber Catheter 14 Fr misc See Rx Instructions .Route Qty: 12 3RF Rx Instructions: As directed - Upper Sorbian tip, 14 Fr, soft opaque catheters Discharge Instructions Additional Instructions: Please follow-up with your specialist at [facility] as scheduled. Be sure to review diagnostic test results with your specialist. Be sure to review lesion on roof of your mouth. Please contact your primary care physician to arrange follow-up. Return to the ER immediately for any worsening or new concerning symptoms.
[2023-04-29 09:41] VITALS: BP 148/84; PULSE 61; TEMP 36.8; O2SAT 97
== END 2023-04-29 09:55 | disposition home or self-care (01) ==
PROVIDERS: Emergency Medicine; Emergency Provider Student in an Organized Health Care Education/Training Program
DX: R07.89 Other chest pain (principal); R13.14 Dysphagia, pharyngoesophageal phase
CPT/HCPCS: 70491; 80053; 93005; 99285; 71260; 84484; 85025; 93010; 99284; J3490; Q9967

== ENCOUNTER 2023-05-09 12:56 | Emergency (ER) | payer MEDICARE, MEDICAID, SELFPAY ==
[2023-05-09 13:01] VITALS: BP 109/85; PULSE 70; RESP 15; TEMP 37.1; O2SAT 97
--- OUTSIDE RECORDS SUMMARY | 2023-05-09 13:31 | XMS_ITS | CCD ---
Author Name Unknown Address [address] [place] [address] [id number] Organization Unknown Address [address] [place] [address] [phone] Care Team Providers Care Cooler Worker Name Role Phone ROBIN HOPPER Attending Physician [phone] ROBIN HOPPER Er Physician 3 [phone] ESTELA Lagos Registered Nurse [phone] Vital Signs Vital Sign Value Unit Date/Time Recent/Initial ? BMI (Body Mass Index) 22.6 kg/m^2 05/05/2023 09: 09 Initial VS Weight Measured 140 lbs 05/05/2023 09:09 Ini tial VS Height 66 in 05/05/2023 09:09 Initial VS BSA (Body Surface Area) 1.72 m^2 05/05/2023 0 9:09 Initial VS BP Systolic 120 mmHg 05/05/2023 09:09 Initial VS BP Diastolic 91 mmHg 05/05/2023 09:09 Initia l VS Respiratory Rate 18 bpm 05/05/2023 09:09 In itial VS Heart Rate 66 bpm 05/05/2023 09:09 Initial VS O2 % BldC Oximetry 96 % 05/05/2023 09:09 Initial VS Body Temperature 36.8 degrees 05/05/2023 09:09 In itial VS BP Systolic 110 mmHg 05/05/2023 10:14 Most Re cent VS BP Diastolic 86 mmHg 05/05/2023 10:14 Most R ecent VS Respiratory Rate 18 bpm 05/05/2023 10:[address] Recent VS Heart Rate 67 bpm 05/05/2023 10:14 Most Rec ent VS O2 % BldC Oximetry 100 % 05/05/2023 10:14 Most Recent VS Allergies Allergy Code Allergy Type Reaction Status PENICILLINS (CLASS) 0 Drug allergy Act colten SULFA (sulfonamide) 0 Drug allergy Act colten LEVOFLOXACIN 04367 Drug allergy Active QUINOLONES 0 Drug allergy Active CIPRO [id number] Drug allergy Active AZOLEN 0 Drug allergy Active Procedures Unknown or Not Available. History of Immunizations Unknown or Not Available. Problems Unknown or Not Available. Results Unknown or Not Available. Active Medications Unknown or Not Available. Medications Administered During Visit Unknown or Not Available. Encounters Unknown or Not Available. Social History Smoking Status Code Start Date End Date Former smoker [id number] Patient Decision Aids Unknown or Not Available. Discharge Instructions You were admitted to [facility] on 05/05/2023 08:59 You were discharged from [facility] on 05/05/2023 10:16 Should you have any questions prior to discharge, please contact a member of your healthcare team. If you have left the hospital and have any questions, please contact your primary care physician. Chief Complaint and Reason For Visit Chief Complaint Date of Onset FEVER CANT SWALLOW ESOPHAGUS ISSUE 05/05 Function Status Unknown or Not Available. Plan of Care Unknown or Not Available. Referral/Transition of Care Unknown or Not Available.
== END 2023-05-09 14:31 | disposition left against medical advice (07) ==
DX: Z53.21 Procedure and treatment not carried out due to patient leaving prior to being seen by health care provider (principal)

== ENCOUNTER 2023-05-16 09:19 | Emergency (ER) | payer MEDICARE, MEDICAID, SELFPAY ==
[2023-05-16 09:23] VITALS: BP 124/84; PULSE 71; RESP 18; TEMP 36.8; O2SAT 98
--- NOTE | 2023-05-16 09:35 | ED.GENADUL_ITS ---
Discharge Plan Disposition Patient Disposition: Home Condition: Stable Discharge Details Clinical Impression: Esophageal dysmotility, Chronic sinusitis ED Provider: Kate Espino Home Meds and New Rx's Prescriptions: No Action cromolyn [Nasalcrom] 5.2 mg/spray (4 %) spray,non-aerosol 1 spray intranasal Q8H PRN (Reason: congestion) Qty: 26 0RF Rx Instructions: each nostril lubricants [Personal Lubricating Jelly] Gel 1 applic topical 7XD (DME) Bardia Red Rubber Catheter 14 Fr misc See Rx Instructions .Route Qty: 12 3RF Rx Instructions: As directed - Georgian tip, 14 Fr, soft opaque catheters multivitamin Tablet 1 tab PO DAILY Discharge Instructions Instructions: Sinusitis (ED), General Headache (ED) Additional Instructions: Please continue to follow-up with your previously scheduled specialist. This CT of your head and sinuses show chronic swelling. Please use a nasal spray such as Flonase or cromolyn or similar. Follow up with primary care provider in 3-5 days. Return to ED sooner if any worsening or concerns. Increase oral fluids. Please take Tylenol or Ibuprofen with food every 4-6 hours as needed for pain and swelling. We are not able to do the Barium swallow today. Referrals: [facility] [Outside] [facility] [Outside] Discharge Data Discharge Date/Time-TO BE ENTERED AT DEPARTURE: 05/16/23 10:44 Medical Decision Making 63-year-old male presents complaining of coughing, vomiting pus and is scheduled for a esophageal procedure at [facility] in [address] Jesús Kaur's HPI from April 29. Patient presents to the ER today with a chief complaint of headache, postnasal drip, difficulty swallowing. He does have a history of esophageal dysmotility. He was supposed to have an MRI today which they could not do it here. He is complaining of right-sided ear pain and right nasal congestion. He also has a lesion to the top of his hard palate which is being followed by ear nose and throat at [facility] in the future Dr. Chase. He did see a yarn hauler yesterday at [facility] per patient report. He also reports that he tested positive for the flu last week. On April [address] of his neck and chest. He is taking cromolyn nebulizers but he reports that he has not been doing that recently. On exam he is speaking in full sentences, he is requesting his monitor his oxygen saturation in the room. No stridor auscultated. He is spitting up clear frothy sputum. He does have a small lesion to the top of his hard palate measuring approximately 8.5 cm. He does have fluid bedtime behind his right TM and boggy nasal turbinates to his right nare. Normal S1-S2 no murmurs rubs or gallops. Lungs are clear to auscultation bilaterally no wheezes rhonchi auscultated. I did discuss with him nasal spray such as Flonase, I did order 0.5 of lorazepam, CT sinuses and head. Imaging of his chest not repeated due to to no signs of esophageal bleeding, no signs of esophageal rupture. Patient refused lorazepam. Barrium swallow canceled after speaking with radiologist Dr. Lopez who recommends outpatient Barrium swallow test due to this being a chronic problem. CT head and sinuses shows no skull fractures or no acute intracranial findings. There is a left sphenoid sinus which exhibits some thickening And Only Minimal Mucosal Disease. Right there is some thickening not seen in the smaller right sphenoid sinus. Ostiomeatal units are patent bilaterally. Frontal sinuses are unremarkable. I will discharge patient with instructions to follow-up with previously scheduled specialists. Will encourage nasal steroids and antianxiety medications if needed. Discussed tricked return instructions. Patient has had no bleeding. Upon discharge patient expresses concerns and is somewhat agitated for not getting the barium swallow study done. I did discuss with him the reasoning behind preferred outpatient study. I did discuss his CT results with him and went over those I did give him a copy of the preliminary CT head and sinuses result. All of his questions and concerns were answered to the best my ability. Patient stated that he may call a patient advocate, he does have pressured speech and appears very anxious. He does state to me I do not have hyper anxiety syndrome or hypochondria as they think. Charge nurse also at bedside to assist with answering questions and giving discharge instructions. This text was generated using stylemarksation system, please disregard any oddities of phrase or misspellings. Medical Records Medical records reviewed: Yes I reviewed the patient's medical records. Medical records narrative: Dr. Jesús Kaur's HPI from 04/29/2023 62-year-old male presents with chronic esophageal and thoracic symptoms characterized by foreign body sensation in throat issues swallowing, regurgitation, endorses extensive evaluation at [facility] as well as the [facility] without definitive diagnosis, patient is scheduled to be seen by rheumatology GI and general surgery in the [facility] within the coming months for further evaluation, this evening feels as if his eustachian tube is clogged and his TMJ is acting up and has tightness in his chest radiating up into his throat. Patient clearing his throat and bringing up saliva. No vomiting no shortness of breath, afebrile nontoxic symptomatology abates during history taking when patient is talking at length about his symptoms. Was able to find extensive GI note which demonstrates a mild dysmotility observed during barium swallow study on 02/16/2021 without signs of obstruction patient was referred for manometry study in 2020 which she did not follow-up with. Per note patient underwent ENT procedure for aspergillus sinuisitis;. High-resolution esophageal manometry at [facility] on 10/16/22, normal lower esophageal sphincter relaxation, increased proximal esophageal acid exposure when supine; patient was also seen at [facility] 01/24/2022 underwent flexible upper endoscopy which showed mild edema to the glottic region was diagnosed with laryngeal pharyngeal reflux and placed on Pepcid he stopped this medication due to it causing a numb sensation in his body patient also endorses that he cannot tolerate PPIs, per [facility] GI no signs of Holloway esophagus no signs of eosinophilic esophagitis no strictures no Schatzki rings, acid suppression test showing no signs of GERD Patient Name: Jordan Santana Unit #: [id number] Loc: ER Ordering Provider: Getachew Smith M.D. Status: REG ER Primary Care Provider: Unknown,Unknown Date of Exam: 04/29/23 Sex:M : Age: 62 Exam(s) a CT:CT neck chest w Exam(s) CT NECK CHEST W EXAM: CT NECK CHEST W CLINICAL HISTORY: regurgitation, chest tightness acute on chronic TECHNIQUE: Imaging Protocol: Axial computed tomography images with coronal and sagittal reformatted images were created and reviewed CONTRAST MATERIAL: Intravenous: Omnipaque 350 Contrast volume:110 ml Oral: / no COMPARISON: CR XR CHEST 2V PA LATERAL from 01/08/2022 FINDINGS: Neck: Parotids/submandibular/thyroid gland: Normal. Lymphadenopathy: There is scattered lymph nodes seen along the level one to level three all measuring less than 8 mm in short axis diameter which are physiologic in nature. Carotids/Jugular: Within normal limits. Vertebral arteries appear normal. Soft tissues: The floor the mouth is unremarkable. The epiglottis and vocal cords are within normal limits. Bones: No fracture. No lytic or blastic lesions. Negative changes. Sinuses: Clear. No evidence of mass or bony destruction. Mastoid air cells: Clear. Visualized portions of the brain are unremarkable. Chest: Tracheobronchial tree: Patent where visualized. Mediastinum and Bailee: No dominant adenopathy or fluid collection. Pulmonary parenchyma: No consolidation or dominant measurable mass. Pleura: No effusion or pneumothorax. Heart/Aorta: Thoracic aorta non-dilated. The heart is not dilated. No coronary artery calcifications are seen. Pulmonary arteries: No evidence of emboli. Bones: No fracture. No lytic or blastic lesions. Mild degenerative changes. Esophagus not dilated. No visible wall thickening or mass. ABDOMEN: The upper portion of the abdomen is included on the exam. Liver: Normal density. No measurable mass. Gallbladder and biliary tract: No radiodense calculus or dilation. Pancreas: Normal density, no abnormal calcifications or inflammatory process. Spleen: Normal. Kidneys: Normal size, contour and axis. No radiodense stones or obstructive uropathy. No suspicious masses seen. Adrenal glands: No masses seen. Abdominal Aorta: Abdominal portion non-dilated. IMPRESSION: Normal no acute abnormality in the Neck, Chest and upper abdomen.. Imaging Data Radiologic Study: Imaging: CT Scan Radiologist's impression: FINDINGS: CT SCAN PARANASAL SINUSES: Maxillary sinuses clear with no significant mucosal thickening nor fluid levels. Ostiomeatal units are patent bilaterally. Sphenoid sinuses exhibit some mild mucosal disease laterally on the left. There is periosteal thickening of the sphenoid sinus.. Frontal sinuses are clear. Mild mucosal thickening is noted in left-sided ethmoidal air cells. There is asymmetry in posterior left-sided ethmoidal air cells with somewhat wide left sphenoid ethmoidal recess, possibly postsurgical. Turbinates are intact. Mild aeration of the right middle turbinate is noted. The nasal septum exhibits a right-sided nasal septal spur, nonobstructive. No evidence of nasal bone fracture. Mastoid air cells are clear-well aerated. No fluid nor masses evident in the middle ear cavities. CT BRAIN WITHOUT IV CONTRAST: There are no skull fractures. There is no evidence of intracranial hemorrhage, mass effect, or shift of midline structures. There are no extra-axial fluid collections. The ventricles are not enlarged or shifted and there is no blood within the ventricular system nor within the basal cisterns. IMPRESSION: 1. No acute intracranial findings on this noninfused CT scan of the brain. 2. The left sphenoid sinus exhibits periosteal thickening but with only minimal mucosal disease in its most lateral aspect. The sphenoid ethmoidal recess on the left side is wide, approximately 7-8 mm width. Either developmental or postsurgical. Similar periosteal thickening is not seen in the smaller right sphenoid sinus. 3. Maxillary sinuses unremarkable and with no surgical defects. Ostiomeatal units are patent bilaterally. 4. Frontal sinuses unremarkable. Frontoethmoidal recesses unremarkable. HPI General Date/Time Provider Initiated Documentation: 05/16/23 09:31 . Related Data Home Medications Medication Instructions Recorded Confirmed multivitamin 1 tab PO DAILY 03/18/21 05/09/23 cromolyn 5.2 mg/spray (4 %) nasal 1 spray intranasal Q8H PRN 01/04/22 05/09/23 spray (Nasalcrom) congestion #26 mL lubricants topical gel (Personal 1 applic topical 7XD 01/23/22 05/09/23 Lubricating Jelly topical) catheter 14 Fr (Bardia Red Rubber #12 ea 03/06/22 05/09/23 Catheter) Previous Rx's Medication Instructions Recorded cromolyn 5.2 mg/spray (4 %) nasal 1 spray intranasal Q8H PRN 01/04/22 spray (Nasalcrom) congestion #26 mL catheter 14 Fr (Bardia Red Rubber #12 ea 03/06/22 Catheter) Allergies Allergy/AdvReac Type Severity Reaction Status Date / Time egg Allergy Severe egg-based Verified 05/16/23 09:27 vaccines required epi injection fentanyl Allergy Severe Confulsions, Verified 05/16/23 09:27 severe vomiting, decreased BP and HR sulfamethoxazole Allergy Severe Skin Rash Verified 05/16/23 09:27 [From Bactrim] trimethoprim [From Bactrim] Allergy Severe Skin Rash Verified 05/16/23 09:27 Penicillins Allergy Anaphylaxis Verified 05/16/23 09:27 prednisone AdvReac Severe Pt. states Verified 05/16/23 09:27 adverse effect causes increased inflammation Sulfa (Sulfonamide AdvReac Severe States it Verified 05/16/23 09:27 Antibiotics) made him numb on the right side which made him col levofloxacin AdvReac Intermediate Neuropathy Verified 05/16/23 09:27 pantoprazole AdvReac Intermediate palpitation Verified 05/16/23 09:27 s General Stated Complaint: GenMedical ARIANA: 3 Review of Systems All systems reviewed & are unremarkable except as noted in HPI and below Constitutional Constitutional: Reports as per HPI, Denies fever(s) and Reports headache(s) ENT Ears, Nose, Mouth, and Throat: Reports as per HPI, Reports dysphagia, Reports headache(s), Reports mouth lesions, Reports nasal congestion, Reports nasal discharge, Reports neck pain, Reports odynophagia, Reports post nasal drip, Reports sinus pain, Reports sinus pressure, Reports sore throat and Denies tongue swelling Cardiovascular Cardiovascular: Denies chest pain and Denies dyspnea Respiratory Respiratory: Denies dyspnea Gastrointestinal Gastrointestinal: Reports as per HPI, Denies abdominal pain, Denies constipation, Reports dysphagia, Denies diarrhea, Reports nausea and Reports odynophagia Musculoskeletal Musculoskeletal: Reports neck pain Neurologic Neurologic: Reports headache(s) Psychiatric Psychiatric: Reports as per HPI, Reports anxiety and Reports irritability Allergic/Immunologic Allergic/Immunologic: Denies tongue swelling PFSH All Active Problems (Updated 05/16/23 @ 13:33 by Kate Espino NP) Chronic sinusitis (Acute) Oropharyngeal lesion (Acute) Esophageal dysmotility (Acute) Laryngopharyngeal reflux (Chronic ~01/2022) based on nasopharyngoscopy by [facility]. Planned famotidine rx. Nocturnal hypoxia (Acute) Urinary incontinence (Acute) Associated with neurogenic bladder, patient self catheterizes. 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 No other hepatic abnormalities- consistent with Gilbert's syndrome Dysphagia (Acute) Multiple prior GI-ENT evaluations Chronic rhinitis (Chronic) Neurogenic bladder (Chronic) Status post remote injury, neurogenic bladder, patient self catheterizes- managed by urology Palpitations (Acute) Dyspnea (Acute) Syncope (Chronic) Esophageal dysmotility (Acute) Chest pain (Acute) Medical History Actinic keratosis 08/07/21-[facility] dermatology. Allergic rhinitis Atonic bladder Self-catheterizes, limits ability to travel for appointments Chronic cough Chronic sphenoidal sinusitis Family history of prostate cancer Grandfather and uncles History of atypical nevus History of postoperative nausea and vomiting patient states nausea/vomiting from surgery 2013 with fentanyl used in part History of urethral stricture surgery 2013 Lichen simplex chronicus [place] Multiple complaints Nasal obstruction removal of mass/scar in left sphenoid sinus, [facility] Oste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 Brother No problems noted. Brother Heart disease Social History Smoking/Tobacco Use Status: Never Second Hand Exposure: Yes Smoking risk assessment performed?: Yes Alcohol Intake: current Alcohol Intake frequency: a few times a month Alcohol type: hard liquor Drug use: Occasionally Substance use type: marijuana Details: Pt reports using 2 days ago. Reports several times of week smoking. Adopted: No Foster care: No Housing: other Number of Children: 0 number of grandchildren: 0 Education Level: high school Pets and animals: No Sexually active: No Do you think of yourself as: straight/heterosexual Current gender identity: male What is your relationship status?: never How often do you talk on the phone with friends or family?: three or more times per week How often do you get together with friends or relatives?: three or more times per week How often do you attend anglican or congregational services?: decline to answer Do you belong to any clubs or organized social groups?: no Panel score (0-1 are the most socially isolated patients): 1 What type of physical activity do you participate in: walking, weight lifting and yoga Frequency: daily Carmela/Hinduism: None Special carmela needs: No Seatbelt use: always Drive intox or ride w/intox local company intermodal truck driver: No Do you feel safe at home: Yes Do you feel safe in your relationship?: Yes Exam Narrative Exam Narrative: Constitutional: Alert and oriented x3. Appears stated age. Normal body habitus. Patient does have pressured speech, appears slightly agitated and anxious. Head: Normocephalic, no trauma. Eyes: Pupils PERRL, Red reflex noted, EOM's intact. Eyelids symmetrical without lesions, discharge, or swelling. ENT: Right tympanic membrane does appear to have a small effusion, dull no erythema no bulging no loss of landmarks. External ear normal to inspection, no mastoid TTP, swelling, or erythema, right nasal turbinates boggy, normal dentition, Posterior pharynx WNL, no exudate. No foreign body. Uvula is midline. There is a small erosion noted to the top of his hard palate. Please see mouth diagram below. Chest: RRR, Normal S1, S2, distal pulses intact. Resp: Lungs clear to auscultation bilaterally, no wheezes, rales, or rhonchi. Abdomen: Soft, non-distended, Normoactive bowel sounds all 4 quads. Musculoskeletal: Normal gait, 5/5 strength to all four extremities. Skin: No suspicious rashes or lesions. Capillary refill less than 2 sec. Neurologic: Cranial nerves II-XII intact. Alert and oriented x 3. Motor: No deficits noted. Hematologic/Lymphatic: No ecchymosis, no lymphadenopathy. [facility] Teeth image: 2 1. Small approximately 0.5 cm erosion type lesion to the roof of his mouth and hard palate no surrounding induration erythema or drainage. Course Vital Signs Vital signs: Vital Signs Temperature 36.8 C 05/16/23 09:23 Pulse 71 05/16/23 09:23 Respiratory Rate 18 05/16/23 09:23 Blood Pressure 124/84 05/16/23 09:23 Pulse Oximetry 98 05/16/23 09:23 Temperature 36.8 C 05/16/23 09:23 Temperature Source Temporal Artery Scan 05/16/23 09:23 Pulse 71 05/16/23 09:23 Respiratory Rate 18 05/16/23 09:23 Respiratory Effort Normal, Non-Labored 05/16/23 09:27 Blood Pressure 124/84 05/16/23 09:23 Blood Pressure Position Sitting 05/16/23 09:23 Pulse Oximetry 98 05/16/23 09:23 Oxygen Delivery Method Room Air 05/16/23 09:23 Oxygen Flow Rate 0 05/16/23 09:23
--- NOTE | 2023-05-16 10:00 | DI.CT_ITS ---
Exam(s) CT HEAD SINUS WO EXAM: CT HEAD SINUS WO CLINICAL HISTORY: [place], Chronic sinusitis, right eustachian tube dz TECHNIQUE: COMPARISON: CT CT HEAD WO from 07/12/2021 FINDINGS: CT SCAN PARANASAL SINUSES: Maxillary sinuses clear with no significant mucosal thickening nor fluid levels. Ostiomeatal units are patent bilaterally. Sphenoid sinuses exhibit some mild mucosal disease laterally on the left. There is periosteal thicke radha of the sphenoid sinus.. Frontal sinuses are clear. Mild mucosal thickening is noted in left-si ded ethmoidal air cells. There is asymmetry in posterior left-sided ethmoidal air cells with somewha t wide left sphenoid ethmoidal recess, possibly postsurgical. Turbinates are intact. Mild aeration of the right middle turbinate is noted. The nasal septum exhibits a right-sided nasal septal spur, nonobstructive. No evidence of nasal bone fracture. Mastoid air cells are clear-well aerated. No fluid nor masses evident in the middle ear cavities. CT BRAIN WITHOUT IV CONTRAST: There are no skull fractures. There is no evidence of intracranial hemorrhage, mass effect, or shift of midline structures. There are no extra-axial fluid collections. The ventricles are not enlarged or shifted and there is no blo od within the ventricular system nor within the basal cisterns. IMPRESSION: 1. No acute intracranial findings on this noninfused CT scan of the brain. 2. The left sphenoid sinus exhibits periosteal thickening but with only minimal mucosal disease in it s most lateral aspect. The sphenoid ethmoidal recess on the left side is wide, approximately 7-8 mm width. Either developmental or postsurgical. Similar periosteal thickening is not seen in the small er right sphenoid sinus. 3. Maxillary sinuses unremarkable and with no surgical defects. Ostiomeatal units are patent bilater ally. 4. Frontal sinuses unremarkable. Frontoethmoidal recesses unremarkable.
== END 2023-05-16 10:44 | disposition home or self-care (01) ==
PROVIDERS: Emergency Provider Registered Nurse Emergency
DX: J32.9 Chronic sinusitis, unspecified (principal); K22.89 Other specified disease of esophagus
CPT/HCPCS: 99284; 70450; 70486

== ENCOUNTER 2023-07-03 13:59 | Outpatient (REF) | payer MEDICARE, MEDICAID, SELFPAY | END 2023-07-03 14:00 | disposition home or self-care (01) | LOC: NCHCN 13:59 | PROVIDERS: Visit Provider Nurse Practitioner Family | DX: Z12.5 Encounter for screening for malignant neoplasm of prostate (principal) | CPT/HCPCS: 84154 ==

== ENCOUNTER → 2023-07-10 00:33 | Outpatient (CLI) | payer MEDICARE, MEDICAID, SELFPAY ==
--- NOTE | 2023-07-10 | DI.DEXA_ITS ---
Exam(s) XR DEXA BONE DENSITY W/WO AJ EXAM: XR DEXA BONE DENSITY W/WO AJ CLINICAL HISTORY: M85.88 OTHER SPECIFIED DISORDERS OF BONE DENSITY AND STRUCTURE TECHNIQUE: COMPARISON: No exams were available for comparison FINDINGS: Lateral Spine Image: Unremarkable. No compression deformities identified. Left hip: Total T-Score: -1.4 Total Z-Score: -0.9 T- and Z-scores: Findings are consistent with osteopenia. Lumbar Spine: Total T-Score: -1.1 Total Z-Score: -0.4 T- and Z-scores: Findings are consistent with osteopenia. There is osteoporosis in the right forearm with a total T-score of -3.0 and a Z-score of -2.1. IMPRESSION: Osteoporosis in the right forearm.
== END ==
PROVIDERS: Visit Provider Nurse Practitioner Family
DX: M85.88 Other specified disorders of bone density and structure, other site (principal); Z13.820 Encounter for screening for osteoporosis
CPT/HCPCS: 77080

== ENCOUNTER 2023-07-17 17:22 | Outpatient (REF) | payer MEDICARE, MEDICAID, SELFPAY ==
[2023-07-17 17:46] LABS: Bilirubin Negative (Negative); Blood Trace-lysed (Negative); Clarity Sl Cloudy (Clear); Glucose Negative (Negative); Ketones Negative (Negative); Leukocyte Esterase Large (Negative); Nitrite Positive (Negative); Specific Gravity 1.015 (1.005-1.025); Urobilinogen 0.2 mg/dL (Up to 0.2); pH >= 9.0 (5-8)
[2023-07-17 18:00] LABS: Bacteria Many HPF (Negative); C & S Indicated? Yes; Crystals Rare Triple Phos HPF (Negative); Epithelial Cells Negative HPF (Negative); Mucus Negative (Negative)
== END 2023-07-17 17:23 | disposition home or self-care (01) ==
LOC: LBN 17:22
PROVIDERS: Visit Provider Urology
DX: N39.0 Urinary tract infection, site not specified (principal)
CPT/HCPCS: 87077; 81003; 81015; 87086; 87186

== ENCOUNTER 2024-12-14 14:16 | Outpatient (CLI) | payer MEDICARE, MEDICAID, SELFPAY ==
--- NOTE | 2024-12-14 14:00 | DI.RAD_ITS ---
Exam(s) XR CHEST 2V PA LATERAL EXAM: XR CHEST 2V PA LATERAL CLINICAL HISTORY: eval pathology, neck pain, m54.2 TECHNIQUE: 2D digital imaging was performed. Two views. COMPARISON: CT CT NECK CHEST W from 04/29/2023 FINDINGS: HEART: Normal size. Aorta: Not dilated. PULMONARY VASCULATURE: Normal. MEDIASTINUM: Unremarkable. LUNGS: Clear. PLEURAL SPACE: No pleural effusion or pneumothorax. BONE:Mild lower thoracic scoliosis. Mild degenerative changes in the thoracic spine. SOFT TISSUES: Unremarkable. IMPRESSION: No acute abnormality. DATA REPOSITORY: RADIATION DOSE DELIVERED:
--- NOTE | 2024-12-14 14:00 | DI.RAD_ITS ---
Exam(s) XR LUMBAR SPINE COMPLETE EXAM: XR LUMBAR SPINE COMPLETE CLINICAL HISTORY: lumbar pain,m54.50. TECHNIQUE: 2D digital imaging was performed. Five views. COMPARISON: CT CT NECK CHEST W from 04/29/2023 CR XR DEXA BONE DENSITY W/WO AJ from 07/10/2023 CR XR CHEST 2V PA LATERAL from 12/14/2024 FINDINGS: There is a transitional type vertebral body at the lumbosacral junction with partial lumbarization of S1. BONES: No fracture or destructive lesion. Vertebral body heights are maintained. DISKS: There is asymmetric narrowing of the disc spaces on the right at L 1 2 and L2-3. There is marked disc space narrowing at L5-S1. The remaining disc spaces are maintained. ALIGNMENT: moderate levo rotoscoliosis. SOFT TISSUE: Normal. IMPRESSION: Degenerative disc changes at L5-S1. Moderate levoscoliosis. DATA REPOSITORY: RADIATION DOSE DELIVERED:
--- NOTE | 2024-12-14 14:00 | DI.RAD_ITS ---
Exam(s) XR CERVICAL SPINE COMP 4-5V EXAM: XR CERVICAL SPINE COMP 4-5V CLINICAL HISTORY: eval pathology,neck pain,m54.2. TECHNIQUE: 2D digital imaging was performed. Five views were performed. COMPARISON: CR,RF RF BARIUM SWALLOW SINGLE from 02/16/2021 FINDINGS: BONES: No fracture or destructive lesion. Vertebral bodies are unremarkable. There are mild facet deg enerative changes throughout, greatest at C7-T1. There is mild right-sided neural foraminal narrowin g at the C5-6 and C6-7 levels and moderate neural foraminal narrowing at C6-7 on the left. DISKS: Mild narrowing of the C5-6 and C6-7 disc spaces. There are small endplate osteophytes at thes e levels. The remaining intervertebral disc spaces are maintained. ALIGNMENT: Cervical spinal alignment is within normal limits. The odontoid and atlantoaxial articulat ions are normal. SOFT TISSUE: Normal. The lung apices are clear. IMPRESSION: Degenerative changes greatest at C5-6 and C6-7. DATA REPOSITORY: RADIATION DOSE DELIVERED:
== END 2024-12-14 14:36 ==
LOC: DI 14:17
PROVIDERS: Visit Provider Nurse Practitioner Family
DX: M51.360 Other intervertebral disc degeneration, lumbar region with discogenic back pain only (principal); M41.86 Other forms of scoliosis, lumbar region; M50.322 Other cervical disc degeneration at C5-C6 level
CPT/HCPCS: 71046; 72050; 72110

== ENCOUNTER 2025-03-14 02:28 | Outpatient (CLI) | payer MEDICARE, MEDICAID, SELFPAY ==
--- NOTE | 2025-03-14 | DI.CT_ITS ---
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 TECHNIQUE: Imaging Protocol: Axial computed tomography images with coronal and sagittal reformatted images were created and reviewed COMPARISON: CR XR LUMBAR SPINE COMPLETE from 12/14/2024 CR XR CHEST 2V PA LATERAL from 12/14/2024 FINDINGS: Bones: There are no fractures, listhesis, nor pars defects. There are no lytic osseous lesions evident. Scoliosis convex left. There is sacralization of the L5 segment INDIVIDUAL LEVELS: T12-L1:Unremarkable L1-2: Mild annular bulging. No dominant disc herniation. Central canal dimensions are lower normal. Facet joints unremarkable. No significant foraminal stenosis. L2-3: Mild disc space narrowing. Symmetrical annular bulging. No dominant disc herniation. Mild central canal stenosis. Mild degenerative changes are noted in the right facet joint. Left facet joint unremarkable. No significant foraminal stenosis. L3-4: Broad symmetrical annular bulging without a dominant disc herniation. Mild central canal stenosis. No significant foraminal stenosis. No significant facet arthropathy. L4-5: Chronic advanced disc space narrowing and vacuum phenomena. There is anterior osseous lipping noted. Posteriorly there is annular bulging without a dominant disc herniation. Central canal dimensions are normal. Facet joints unremarkable. There is mild-moderate foraminal stenosis on the left side due to the disc height loss. Foraminal dimensions on the opposite-right side are lower normal. L5-S1: This is sacralized. Rudimentary disc space with no disc herniation or central canal stenosis nor foraminal stenosis at this level. The visualized sacroiliac joints and sacrum appear unremarkable. PARASPINAL SOFT TISSUES: Visualized paraspinal tissues appear unremarkable. IMPRESSION: 1. There is chronic disc space narrowing at L4-5 level which is 1 level above the sacralized L5 segment. Although there is no central canal stenosis at this level there is an element of foraminal stenosis at L4-5, more so on the left side. This is mostly related to the disc height loss at this level (vertical foraminal stenosis). 2. Other findings as above. RADIATION DOSE DELIVERED: 429.98mGy.cm Total DLP DATA REPOSITORY: All CT scans at this facility are submitted to the National Radiology Data Registry (NRDR) Dose Index Registry (DIR) with the [employer] ([employer]). RADIATION OPTIMIZATION: All CT scans at this facility use at least one of these dose optimization techniques: automated exposure control; mA and/or kV adjustment per patient size (includes targeted exams where dose is matched to clinical indication); or iterative reconstruction.
--- NOTE | 2025-03-14 | DI.CT_ITS ---
Exam(s) CT CERVICAL SPINE WO EXAM: CT CERVICAL SPINE WO CLINICAL HISTORY: M54.2 Cervicalgia. TECHNIQUE: Imaging Protocol: Axial computed tomography images with coronal and sagittal reformatted images were created and reviewed COMPARISON: No exams were available for comparison FINDINGS: CERVICAL SPINE: There is no evidence of acute fracture. No significant prevertebral soft tissue swelling. No significant listhesis. Mild disc space narrowing at C5-6 and C6-7 levels. There is small bilateral Luschka joint osteophytes at these levels. Mild spinal canal stenosis seen at that time. The is no significant facet arthropathy. No facet joint malalignment. No significant osseous lesions evident. IMPRESSION: No evidence of cervical spine fracture, malalignment, nor acute compromise of the cervical spinal canal. RADIATION DOSE DELIVERED: 341.75mGy.cm Total DLP DATA REPOSITORY: All CT scans at this facility are submitted to the National Radiology Data Registry (NRDR) Dose Index Registry (DIR) with the [employer] ([employer]). RADIATION OPTIMIZATION: All CT scans at this facility use at least one of these dose optimization techniques: automated exposure control; mA and/or kV adjustment per patient size (includes targeted exams where dose is matched to clinical indication); or iterative reconstruction.
== END 2025-03-14 02:48 ==
PROVIDERS: PCP Nurse Practitioner Family; Visit Provider Nurse Practitioner Family
DX: M51.26 Other intervertebral disc displacement, lumbar region (principal)
CPT/HCPCS: 72125; 72131

== ENCOUNTER → 2025-03-18 10:17 | Outpatient (BNVA) | payer MEDICARE, MEDICAID, SELFPAY | PROVIDERS: PCP Nurse Practitioner Family; Referring Provider Nurse Practitioner Family; Visit Provider Surgery | DX: R63.4 Abnormal weight loss (principal); R13.10 Dysphagia, unspecified; F30.9 Manic episode, unspecified | CPT/HCPCS: 99214 ==

== ENCOUNTER → 2025-03-23 13:27 | Outpatient (BNVA) | payer MEDICARE, MEDICAID, SELFPAY | PROVIDERS: PCP Nurse Practitioner Family; Visit Provider Nurse Practitioner Adult Health | DX: Z53.29 Procedure and treatment not carried out because of patient's decision for other reasons (principal) ==